=== PATIENT | male | born 1950 | race Caucasian/White ===

== ENCOUNTER 2020-02-09 12:33 | Inpatient (IN) ==
--- OUTSIDE RECORDS SUMMARY | 2020-02-09 12:36 | External Medical Summary | Continuity of Care Document ---
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 Refills: 0 Simvastatin TABS , M.D. Refills: 0 Aspirin 81 MG TABS , M.D. Refills: 0 Cephalexin 500 MG Oral Tablet; TAKE 1 TABLET 3 TIMES D AILY. CHAPARRITA Pisano Start: 28-Aug-2012 Quantity: 30 Refills: 0 Procedures History of CABG Status: Completed History of Knee Replacement Status: Comp leted Immunizations Influenza On: Jun-2012 Td On: 04-Aug-2012 Family History Father Family history of Reported Family History Of Heart Disease S tatus: Active Social History - Smoking Status Tobacco smoking consumption unknown Plan of Treatment Planned Observations Planned Goals not documented Results No Known Results Results not documented
--- OUTSIDE RECORDS SUMMARY | 2020-02-09 12:37 | External Medical Summary | Continuity of Care Document ---
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
[2020-02-09] MEDS ORDERED: ASPIRIN CHEW 324 MG PO STA (13:08)
--- NOTE | 2020-02-09 13:25 | Emergency Department Note ---
Impression & Plan NSTEMI (non-ST elevated myocardial infarction), Chest pain, History of coronary artery bypass graft, CAD (coronary artery disease), Unstable angina pectoris ED Provider Note NAME: MORIS HOLT AGE: 69 SEX: M : 1950 ARRIVES VIA: Walk-In INFORMANT: Patient ED PROVIDER(S): Raghu Nguyen DO CHIEF COMPLAINT: Chest pain HPI: Patient is a 69-year-old male with a past medical history of a CABG performed in 1983 that presents the ER for chest pain which is been present off and on since yesterday. He notes that yesterday some around 2 PM it started and became very severe around 3 PM. It dissipated after about an hour. He notes he had no shortness of breath. He did have some tingling in bilateral arms. No jaw pain. No shortness of breath. He did have diaphoresis with it as well. No other exacerbating or remitting factors with the exception that he took Motrin and had improvement of his symptoms. Has been off and on today but he has not had any pain since he started driving here. He currently denies any chest pain, shortness of breath, nausea vomiting diarrhea. Pain was located just right of sternum and wrapped around the right side of his chest. He described as a dull ache/heaviness. Currently his pain is a 0 out of 10. ROS: See above HPI for pertinent positives & negatives. A total of 10 systems reviewed and were otherwise negative. PAST MEDICAL HISTORY:CAD PAST SURGICAL HISTORY:CABG FAMILY HISTORY:See Below SOCIAL HISTORY:See Below HOME MEDICATIONS:See Below ALLERGIES:See Below VITALS:See Below PHYSICAL EXAMINATION: GENERAL: Sitting up in bed, alert, well appearing, well nourished, no distress, non-toxic EYE EXAM: normal conjunctiva. OROPHARYNX: no exudate, no erythema, lips, buccal mucosa, and tongue normal and mucous membranes are moist NECK: supple, no nuchal rigidity, no adenopathy, non-tender CHEST: Old midline incision. LUNGS: Clear to auscultation. Normal chest wall mechanics HEART: no murmurs, S1 normal and S2 normal ABDOMEN: abdomen soft, non-tender, normo-active bowel sounds, no masses, no rebound or guarding. BACK: Back is symmetrical on inspection and there is no deformity, no midline tenderness, no CVA tenderness. SKIN: no rashes and no bruising UPPER EXTREMITIES: upper extremities are grossly normal. LOWER EXTREMITIES: No pitting edema. Calves are equal bilateral NEURO EXAM: Normal sensorium, cranial nerves II-XII grossly intact, normal speech, no gross weakness of arms, no gross weakness of legs. MEDICAL DECISION MAKING: Patient is a 69-year-old male with a past medical history of CAD and bypass back in 1983 who presents the ER for chest pain which is been intermittent since yesterday. He is currently pain-free. He had chest pain which was extremely severe yesterday and became diaphoretic and was located on the right side of his chest wrapping around and went to his bilateral arms. IV was established blood work was obtained. Labs show no significant leukocytosis or anemia. BMP was unremarkable. INR was unremarkable. AST slightly elevated to 20. Troponin was elevated at 28.8. Lipase unremarkable. Chest x-ray with some congestive mendoza ges. EKG was not significantly changed from previous. Upon the result of the troponin of 28 I contacted cardiology. They recommended discussing with interventional cardiology he was agreeable to taking him to the [facility] although he was pain-free at this time because he has had stuttering chest pain over the past 2 days. He was given aspirin upon arrival and I placed him on a heparin drip and bolus after the result of the troponin following conversation with a gentleman who declined any previous head bleeds, coughing up blood, vomiting blood, urinating blood or dark tarry stools or bright red blood per rectum. was updated at bedside as well. He was taken to the [facility] for further intervention. I discussed with the hospitalist as well for admission. Again he remained chest pain free throughout his whole stay in the ER. Triage Nursing notes reviewed. Prior medical records reviewed Vital Signs: reviewed and remarkable for hypertension Differential diagnosis: Differential diagnoses includes but is not limited to acute coronary syndrome, myocardial infarction, pericarditis, pulmonary embolus, aortic dissection, pneumonia, pneumothorax, musculoskeletal, shingles, esophageal. ER treatment provided: See below Diagnostics interpreted by me: ECG: Sinus rhythm rate 89 Normal axis No PVCs Normal QTC Questionable T wave inversion in the inferior leads No significant change from previous 2007 EKG #2 Sinus rhythm rate 85 Normal axis No PVCs Normal QTC Nonspecific ST wave changes in the inferior leads with a poor baseline Cardiac Monitoring: An order was placed for continuous cardiac monitoring. The monitor shows a rate of 93 with sinus rhythm. Laboratory studies: As stated above and show below. Imaging studies: Portable AP upright 1 view of the chest shows no focal infiltrate and mild congestive changes Consultation(s): Discussed with Dr. Adamson around 1:50 PM. He will evaluate the patient at bedside and agrees with discussing with Dr. Banks. Discussed with Dr. Banks from interventional cardiology at 2 PM. Patient will go to the [facility] later today. ED COURSE: Procedures: none Critical Care: I have personally spent 45 minutes of critical care time in the direct management of this patient. This includes bedside care, interpretation of diagnostic studies, and testing, discussion with consultants, patient, and fa concha members, and other required patient management activities. This 45 minutes is in excess of all separately billable procedures. Past Med/Surg History Medical History (Updated 02/09/20 @ 16:47 by Raghu Nguyen DO) ASCVD (arteriosclerotic cardiovascular disease) CAD (coronary artery disease) (Acute) History of nephrolithotomy with removal of calculi Hyperlipidemia Prediabetes Statin intolerance Surgical History (Updated 02/09/20 @ 16:47 by Raghu Nguyen DO) History of coronary artery bypass graft (Acute) History of tonsillectomy S/P laser trabeculoplasty of eye Status post cystoscopy with ureteral stent placement Family History (Updated 02/09/20 @ 16:35 by Laurita Knight PA-C) Mother Ovarian cancer Father Heart disease Social History (Updated 02/09/20 @ 16:35 by Laurita Knight PA-C) Feels Safe at Home: Yes Smoking Status: Never smoker Hx Alcohol Use: No Hx Substance Use: No Allergies Allergies Allergy/AdvReac Type Severity Reaction Status Date / Time codeine Allergy Severe Tongue Verified 02/09/20 14:01 swells, has taken Vicodin w/o reaction Home Meds Home Medications Medication Instructions Recorded Confirmed aspirin [Aspirin Low Dose] 81 mg PO DAILY 02/09/20 02/09/20 ezetimibe 10 mg PO QAM 02/09/20 02/09/20 ibuprofen 200 mg PO Q6H PRN 02/09/20 02/09/20 lisinopril 2.5 mg PO QAM 02/09/20 02/09/20 multivitamin 1 tab PO DAILY 02/09/20 02/09/20 nitroglycerin 0.4 mg SUBLINGUAL PRN 02/09/20 Results & Data (ED) Vital Signs Vital Signs - 24 hr 02/09/20 12:40 02/09/20 13:11 02/09/20 13:21 Temperature 37.0 C Temperature Source Oral Pulse Rate 93 H 91 H Pulse Rate [Apical] Pulse Rate from SpO2 Sensor 92 H Pulse Rhythm [Apical] Pulse Strength [Apical] Respiratory Rate 16 18 Respiratory Effort / Characteristics Respiratory Depth Respiratory Pattern Blood Pressure 186/102 H 147/78 H Blood Pressure [Right Arm] Blood Pressure Mean 130 82 Blood Pressure Mean [Right Arm] Blood Pressure Position [Right Arm] Pulse Oximetry 96 96 95 Oxygen Delivery Method Room Air Room Air Room Air Sepsis Recent Fever Within 48 Hours No Sepsis New/Unexplained Change in Mental Status No Sepsis Action Taken by Nursing No Action Required 02/09/20 13:59 02/09/20 14:00 02/09/20 14:15 Temperature Temperature Source Pulse Rate 92 H 84 79 Pulse Rate [Apical] Pulse Rate from SpO2 Sensor 93 H 84 80 Pulse Rhythm [Apical] Pulse Strength [Apical] Respiratory Rate 16 19 24 Respiratory Effort / Characteristics Respiratory Depth Respiratory Pattern Blood Pressure 155/104 H 161/87 H 159/85 H Blood Pressure [Right Arm] Blood Pressure Mean 130 127 90 Blood Pressure Mean [Right Arm] Blood Pressure Position [Right Arm] Pulse Oximetry 96 98 97 Oxygen Delivery Method Room Air Room Air Room Air Sepsis Recent Fever Within 48 Hours Sepsis New/Unexplained Change in Mental Status Sepsis Action Taken by Nursing 02/09/20 14:30 02/09/20 15:55 02/09/20 16:10 Temperature Temperature Source Pulse Rate 88 Pulse Rate [Apical] 85 86 Pulse Rate from SpO2 Sensor Pulse Rhythm [Apical] Regular Regular Pulse Strength [Apical] Normal Normal Respiratory Rate 15 20 20 Respiratory Effort / Characteristics Non-Labored Non-Labored Respiratory Depth Normal Normal Respiratory Pattern Regular Regular Blood Pressure 163/111 H Blood Pressure [Right Arm] 144/81 H 142/80 H Blood Pressure Mean 119 Blood Pressure Mean [Right Arm] 102 100 Blood Pressure Position [Right Arm] Lying Lying Pulse Oximetry 95 95 95 Oxygen Delivery Method Room Air Room Air Sepsis Recent Fever Within 48 Hours Sepsis New/Unexplained Change in Mental Status Sepsis Action Taken by Nursing 02/09/20 16:25 Temperature Temperature Source Pulse Rate Pulse Rate [Apical] 86 Pulse Rate from SpO2 Sensor Pulse Rhythm [Apical] Regular Pulse Strength [Apical] Normal Respiratory Rate 20 Respiratory Effort / Characteristics Non-Labored Respiratory Depth Normal Respiratory Pattern Regular Blood Pressure Blood Pressure [Right Arm] 103/55 L Blood Pressure Mean Blood Pressure Mean [Right Arm] 71 Blood Pressure Position [Right Arm] Lying Pulse Oximetry 95 Oxygen Delivery Method Room Air Sepsis Recent Fever Within 48 Hours Sepsis New/Unexplained Change in Mental Status Sepsis Action Taken by Nursing Laboratory Data Result diagrams: 02/09/20 12:55 02/09/20 12:55 Lab Results 02/09/20 02/09/20 02/09/20 Range/Units 12:55 12: 12:55 WBC 9.99 (4.8-10.8) K/uL RBC 4.99 (4.7-6.1) M/uL Hgb 16.6 (14.0-18.0) g/dL Hct 47.6 (42-52) % MCV 95.4 (80-100) fL MCH 33.3 (25-34) pg MCHC 34.9 (32-36) g/dL RDW Std Deviation 47.4 H (36.4-46.3) fL RDW Coeff of Brittney 13.6 (11.5-14.5) % Plt Count 218 (130-400) K/uL MPV 9.3 (7.4-10.4) fL Immature Gran % (Auto) 0.1 % Neut % (Auto) 69.9 % Lymph % (Auto) 20.7 % [place] % (Auto) 8.2 % Eos % (Auto) 1.0 % Baso % (Auto) 0.1 % Immature Gran # (Auto) 0.01 (0.00-0.02) K/uL Neut # (Auto) 6.98 H (1.4-6.5) K/uL Lymph # (Auto) 2.07 (1.2-3.4) K/uL [place] # (Auto) 0.82 H (0.11-0.59) K/uL Eos # (Auto) 0.10 (0-0.5) K/uL Baso # (Auto) 0.01 (0-0.2) K/uL PT 10.7 (9.0-12.0) Seconds INR 1.0 (0.9-1.1) APTT 28.5 (21.0-31.0) Seconds PTT Ratio 1.0 Sodium 138 (136-145) mmol/L Potassium 3.8 (3.5-5.1) mmol/L Chloride 105 (98-107) mmol/L Carbon Dioxide 25 (21-32) mmol/L Anion Gap 8.0 (3-11) BUN 12 (7-18) mg/dl Creatinine 0.84 (0.6-1.4) mg/dl Est Cr Clr Drug Dosing 103.3 ml/min Est GFR ( Amer) 102.1 Est GFR (Non-Af Amer) 88.1 BUN/Creatinine Ratio 14.6 (10-20) Glucose 105 H (70-99) mg/dl Calcium 9.3 (8.5-10.1) mg/dl Total Bilirubin 0.6 (0.2-1) mg/dl AST 220 H (15-37) U/L ALT 51 (12-78) U/L Alkaline Phosphatase 89 (45-117) U/L Troponin I 28.800 H* (0-0.045) ng/ml Total Protein 7.9 (6.4-8.2) gm/dl Albumin 4.0 (3.4-5.0) gm/dl Globulin 3.9 (2.5-4.0) gm/dl Albumin/Globulin Ratio 1.0 (0.9-2) Lipase 124 (73-393) U/L Administered Medications Heparin Sodium/Dextrose (Heparin Sodium/Dextrose) 25,000 units in 500 mls @ 20 mls/hr IV .Q24H [facility]; Protocol Stop: 03/10/20 13:59 Last Admin: 02/09/20 14:13 Dose: 1,000 units/hr, 20 mls/hr Documented by: [id number] Cosigned by: [id number] Discontinued Medications Aspirin (Aspirin) 324 mg PO NOW STA Stop: 02/09/20 13:09 Last Admin: 02/09/20 13:18 Dose: 324 mg Documented by: [id number] Fentanyl Citrate (Fentanyl Citrate) Confirm Administered Dose 100 mcg .ROUTE .STK-MED ONE Stop: 02/09/20 14:42 Last Increment: 02/09/20 15:45 Dose: 50 mcg Documented by: [id number] Heparin Sodium (Porcine) (Heparin Iv Bolus) Confirm Administered Dose 10,000 units .ROUTE .STK-MED ONE Stop: 02/09/20 14:12 Last Admin: 02/09/20 14:13 Dose: 4,000 units Documented by: [id number] Cosigned by: [id number] Heparin Sodium (Porcine) (Heparin Iv Bolus ([facility] Use Only)) Confirm Administered Dose 10,000 units .ROUTE .STK-MED ONE Stop: 02/09/20 14:41 Last Admin: 02/09/20 15:45 Dose: Not Given Documented by: [id number] Heparin Sodium/Dextrose () 1 ea IV NOW STA; Protocol Stop: 02/09/20 13:52 Last Admin: 02/09/20 14:16 Dose: 1 ea Documented by: [id number] Heparin Sodium/Sodium Chloride (Heparin/Nss 1000 Unit/500ml Flush Bag) Confirm Administered Dose 3,000 units IV .STK-MED ONE Stop: 02/09/20 14:42 Last Admin: 02/09/20 15:46 Dose: 3,000 units Documented by: [id number] Metoprolol Tartrate (Lopressor) 2.5 mg IV NOW STA Stop: 02/09/20 14:12 Last Admin: 02/09/20 14:17 Dose: 2.5 mg Documented by: [id number] Midazolam HCl (Versed) Confirm Administered Dose 2 mg .ROUTE .STK-MED ONE Stop: 02/09/20 14:42 Last Increment: 02/09/20 15:46 Dose: 1 mg Documented by: [id number] Nicardipine HCl (Cardene) Confirm Administered Dose 25 mg .ROUTE .STK-MED ONE Stop: 02/09/20 14:42 Last Admin: 02/09/20 15:45 Dose: 25 mg Documented by: [id number] Nitroglycerin/Dextrose (Nitroglycerin/D5w 100 Mcg/Ml 20ml Syringe) Confirm Administered Dose 2,000 mcg .ROUTE .STK-MED ONE Stop: 02/09/20 14:42 Last Admin: 02/09/20 15:46 Dose: 2,000 mcg Documented by: [id number] Discharge Plan Visit Data *Final* Discharge Date/Time: 02/09/20 14:34 Chief Complaint: Chest Pain Stated Complaint: CHEST PAIN, GOING TO BACK/SHOULDER BLAD ED Provider: Raghu Nguyen Discharge Problem: NSTEMI (non-ST elevated myocardial infarction), Chest pain, History of coronary artery bypass graft, CAD (coronary artery disease), Unstable angina pectoris Patient Disposition: Admitted As Inpatient Discharge Instructions Interventions: ED Discharge Assessment Last Done: 02/09/20 14:34 Discharge Problem: Chest pain Qualifiers: Chest pain type: unspecified Qualified Code(s): R07.9 - Chest pain, unspecified CAD (coronary artery disease) Qualifiers: Coronary Disease-Associated Artery/Lesion type: unspecified vessel or lesion type [place] vs. transplanted heart: unspecified whether marshall or transplanted heart Associated angina: with unspecified angina Qualified Code(s): I25.119 - Atherosclerotic heart disease of marsh[place] coronary artery with unspecified angina pectoris
[2020-02-09 13:27] LABS: Basophils # (auto) 0.01 K/uL (0-0.2); Basophils % (auto) 0.1 %; Hematocrit (blood only) 47.6 % (42-52); Hemoglobin 16.6 g/dL (14.0-18.0); Immature Granulocytes # (auto) 0.01 K/uL (0.00-0.02); Immature Granulocytes % (auto) 0.1 %; Lymphocytes # (auto) 2.07 K/uL (1.2-3.4); Lymphocytes % (auto) 20.7 %; Mean Corpuscular Hemoglobin 33.3 pg (25-34); Mean Corpuscular Hgb Conc 34.9 g/dL (32-36); Mean Corpuscular Volume 95.4 fL (80-100); Mean Platelet Volume 9.3 fL (7.4-10.4); Monocytes # (auto) 0.82 K/uL (0.11-0.59); Monocytes % (auto) 8.2 %; Neutrophils # (auto) 6.98 K/uL (1.4-6.5); Neutrophils % (auto) 69.9 %; Platelet Count 218 K/uL (130-400); RDW Coefficient of Variation 13.6 % (11.5-14.5); RDW Standard Deviation 47.4 fL (36.4-46.3); Red Blood Count 4.99 M/uL (4.7-6.1); White Blood Count 9.99 K/uL (4.8-10.8)
[2020-02-09 13:35] LABS: BUN Creatinine Ratio 14.6 (10-20); Calcium 9.3 mg/dl (8.5-10.1); Creatinine Clr Calc Pharmacy 103.3 ml/min; Est GFR (African American) 102.1; Est GFR (Non-African American) 88.1; Potassium 3.8 mmol/L (3.5-5.1)
[2020-02-09 13:40] LABS: Partial Thromboplastin Time 28.5 Seconds (21.0-31.0); Prothrombin Time 10.7 Seconds (9.0-12.0)
[2020-02-09 13:44] LABS: Bilirubin,Total 0.6 mg/dl (0.2-1); Globulin 3.9 gm/dl (2.5-4.0); Total Protein 7.9 gm/dl (6.4-8.2); Troponin I 28.8 ng/ml (0-0.045)
[2020-02-09] MEDS ORDERED: Heparin IV Low Dose WITH Bolus IV STA (13:51)
--- NOTE | 2020-02-09 13:52 | XRay Report ---
SINGLE VIEW CHEST CLINICAL HISTORY: Atypical chest pain. FINDINGS: An AP, portable, upright chest radiograph is compared to study dated 10/16/2011. The examina tion is degraded by portable technique and patient rotation. The patient is status post midline murray otomy. The heart is enlarged noting atherosclerotic calcification of the thoracic aorta. There is pul monary vascular congestion. Atelectasis is noted at the lung bases. There is no airspace consolidatio n or large pleural effusion. No pneumothorax is seen. The skeletal structures are osteopenic. The bon y thorax is grossly intact. IMPRESSION: Cardiomegaly with evidence of congestive failure. ACT 112: Negative or not required by law. Electronically signed by: Ernst Warren M.D. 02/09/2020 1:51 PM
[2020-02-09] MEDS ORDERED: HEPARIN SOD (PORCINE) 1000 UNIT/ML 10 ML VIAL ONE (14:11)
[2020-02-09] MEDS ORDERED: METOPROLOL TARTRATE 1 MG/ML VIAL IV STA (14:11)
[2020-02-09] MEDS: HEPARIN SODIUM/DEXTROSE 25,000 UNITS/500 ML BAG IV SCH ×2 (14:13→17:00)
[2020-02-09] MEDS ORDERED: HEPARIN (PORCINE) 1000 UNIT/ML 10 ML (CATH LAB USE ONLY) ONE (14:40)
[2020-02-09] MEDS ORDERED: MIDAZOLAM HCL 1 MG/ML 2ML VIAL ONE (14:41)
[2020-02-09] MEDS ORDERED: fentaNYL citrate 100 MCG/2 ML VIAL ONE (14:41)
[2020-02-09] MEDS ORDERED: NITROGLYCERIN/D5W 100MCG/ML 20ML SYR ONE (14:41)
[2020-02-09] MEDS ORDERED: NiCARDipine HCL INJ 2.5 MG/ML 10 ML AMP ONE (14:41)
--- NOTE | 2020-02-09 15:52 | Post Anesthesia Assessment ---
Date of Service February 09, 2020 Post Sedation Assessment Vital Signs Temp Pulse Resp BP Pulse Ox 02/09/20 14:30 88 15 163/111 H 95 02/09/20 14:15 79 24 159/85 H 97 02/09/20 14:00 84 19 161/87 H 98 02/09/20 13:59 92 H 16 155/104 H 96 02/09/20 13:21 91 H 18 147/78 H 95 02/09/20 13:11 96 02/09/20 12:40 98.6 F 93 H 16 186/102 H 96 Recovery Score Activity: Moves 4 extremities Respiration: Deep Breath/Cough Circulation: +/-20% PreAnes Value Consciousness: Fully Awake Oxygen Saturation: O2 needed for >90% Discharge Sedation Level of Care: Fast Track Phase II Post Sedation Plan On clinical assessment, the patient appears to have tolerated the sedation without complications. Patient is recovering as anticipated. Patient will continue to be monitored by nursing and may be discharged when sedation discharge criteria are met per below protocol. Upon Completions of procedure up to 15 minutes continue every 5 minute vital signs and the P.A.R. score; then discharge to a Phase I or Fast Track to Phase II per the following guidelines: * Discharge Patient to appropriate Phase II area if PAR is 8 or greater or return to pre- procedure baseline. The post - procedure orders will be as directed. * If PAR score is less than 8 or not return to pre-procedure baseline then patient will follow Phase I monitoring till PAR is reached for Phase II. The Phase I may be done in procedure room or may call to secure a Phase I area. * If naloxone or flumazenil are used for reversal, hold in Phase I for continued monitoring from when last reversal dose was given for a minimum of 60 minutes or longer pending the nurse and/or physician discretion of patient condition before discharge to Phase II. Please call the Sedation Physician to re-evaluate and complete post-note for discharge to Phase II area. Do NOT discharge from procedure sedation or Phase 1 until post- sedation evaluation note is complete by procedure /sedation MD Sedation Discharge Instructions to be given to the patient at discharge to home.
--- NOTE | 2020-02-09 16:03 | Cardiac Catheterization ---
[facility] Data: Client Reporting Associate Cardiac Status Clinical evaluation leading to the procedure CAD Presenation: Non STEMI Anginal Classification: CCS IV Heart Failure: No Cardiogenic Shock within 24 Hours: No Cardiac Arrest within 24 Hours: No Imaging Studies Past 6 Months: No Stress Studies Past 6 Months: No Diagnostic Physicians Name: Ernesto Banks MD Status: Elective Closure Device Percutaneous Entry Location: Radial Closure Device: Radial Band Recommendations: Medical Therapy and/or Counseling Intraprocedure Events Significant Disection: No Perforation: No Cardiac Cath Procedure Full Procedure Date February 09, 2020 Pre-Procedure Diagnosis Pre-Procedure Diagnosis: Non STEMI AUC Score AUC Score: 8 Post-Procedure Diagnosis Post-Procedure Diagnosis: Severe CAD and Normal Intracardiac Pressures Procedure(s) Performed Procedure(s) Performed: Coronary Angiography, Left Heart Cath and Bypass Graft Angiography Licensed Chemical Spray Technician Ernesto Banks MD Rnp(s) Luca Estimated Blood Loss Estimated Blood Loss: 15 Medication(s) Medication(s): Fentanyl, Lidocaine 1%, Nicardipine and Nitroglycerin Summary of Findings Indication: High risk NSTEMI, prior three-vessel CABG in 2007 Access: 6 Fr slender left radial art Catheters: JL4, JR4 Findings: LM -calcified, diffuse 30% disease LAD -calcified, 100% ostial occlusion Circumflex -medium caliber vessel, 30% mid segment disease, OM1 occluded, small OM 2 with 80-90% proximal stenosis RCA -dominant, medium caliber, moderately calcified, 50% earlymid, 60 to 70% eccentric mid stenosis, diffuse moderate mid right PDA disease SVG to first [id number]% proximal stenosis, small first diagonal without significant disease SVG to OMacute 100% mid vessel occlusion with heavy thrombus burden throughout vessel ROY to LADwidely patent, distal LAD without significant disease and wraps around apex, retrofills into mid LAD and second diagonal LVEDP -13 Arterial Closure: TR band Summary: 1. Severe multivessel coronary artery disease -Chronic 100% ostial LAD occlusion Chronic 100% ostial OM1 occlusion, 80-90% proximal small OM2 60 to 70% eccentric mid RCA, diffuse moderate disease in small right PDA 2. Acute 100% mid SVG to OM occlusion with heavy thrombus burden 3. 80% proximal SVG to first diagonal 4. Patent ROY to LAD 5. Normal intracardiac filling pressure Recommendations: Patient more than 24 hours out from initial symptoms and is now chest pain-free. Recommend medical management of culprit SVG-OM occlusion. First diagonal is a small vessel and will defer intervention to upstream vein graft at this time. If were to have limiting anginal symptoms in the future SVG to diagonal appears amenable to PCI For now continue heparin infusion DAPT per primary sql developer Continued ASCVD risk factor modification Hemodynamics Rest Ao:: 120/75/107 Final Ao: 136/81/106 LV: 123/13 Recommendations Recommendations: Medical Therapy and/or Counseling Specimens Specimens: None Radiation Exposure (mGy) 1842 Contrast (mls) 45 Fluids (cc crystalloids) Fluids (cc crystalloids): 91 Drains Drains: none Anesthesia moderate Procedural Complication(s) None Disposition PCU I attest to the content of the Intraoperative Record and any orders documented therein. Any exceptions are noted below. [facility] Card Cath Procedure Codes Cardiac Catheterization Procedure 1: Cardiovascular Cath Procedures: 81689 Coronaries and Grafts/IM (venous & atrial) Moderate Sedation Procedure 1: Sedation/Anesthesia: 77535 Mod Sedation by the same physician;Init15 Min Child Age 5 & Up Procedure 2: Sedation/Anesthesia: 91841 Mod Sedation by the same physician; Ea [id number] Minutes PG Care Time/CCT Total # of Minutes Spent Total Time Spent with Patient: Total time spent is greater than 50% in coordination of care (as documented) at patient's floor/unit and/or counseling patient:
[2020-02-09] MEDS ORDERED: ONDANSETRON INJ 2 MG/ML 2 ML VIAL IV PRN (16:13)
[2020-02-09] MEDS ORDERED: SODIUM CHLORIDE 0.9% 1000ML 1,000 ML IV SCH (16:15)
--- NOTE | 2020-02-09 16:17 | Cardiology Consultation ---
Date of Consultation February 09, 2020 Assessment & Plan (1) NSTEMI (non-ST elevated myocardial infarction): Currently the patient is discomfort free without significant EKG changes. Given his significant troponin elevation along with the duration of discomfort he will be taken to the cardiac Practice Clinician today. Further recommendations to follow Cardiac catheterization performed which revealed: 1. Severe multivessel coronary artery disease -Chronic 100% ostial LAD occlusion Chronic 100% ostial OM1 occlusion, 80-90% proximal small OM2 60 to 70% eccentric mid RCA, diffuse moderate disease in small right PDA 2. Acute 100% mid SVG to OM occlusion with heavy thrombus burden 3. 80% proximal SVG to first diagonal 4. Patent ROY to LAD 5. Normal intracardiac filling pressure We will treat medically. We will start dual antiplatelet therapy with Plavix 75 mg p.o. daily first dose now and continue baby aspirin. We will also start metoprolol succinate 25 mg p.o. daily now. Echocardiogram in the a.m. Nitrates may be used for recurrent chest discomfort or morphine. Further medical therapy will be tailored based on the patient's current ejection fraction. (2) ASCVD (arteriosclerotic cardiovascular disease): (3) Chest pain: (4) Statin intolerance: Given his history of diffuse complex coronary artery disease and statin intolerance will require PCSK9 inhibitor therapy to be initiated as an outpatient. Continue Zetia History of Present Illness Reason for Consultation: NSTEMI Requesting Physician: Dr. Nguyen Attending Physician: Dr. Sesay History of Present Illness It was my pleasure to see Mr. Duarte in consultation today February 09, 2020. He is a very pleasant 69-year-old gentleman who normally follows with Dr. Pompa of our cardiology practice. He presented to [facility] on 02/09/2020 with complaints of chest discomfort. He states the discomfort started on the 11 right after lunch. He described it as a chest pressure that was associated with some numbness and tingling down the left arm. He states the discomfort waxed and waned throughout the evening and overnight. At approximately 4 AM it became rather significant and he took 1 sublingual nitroglycerin. He did have transient relief of his discomfort after the nitroglycerin. Finally, on the his daughter encouraged him to seek attention at the emergency room and upon arrival he was found to have a troponin of 29. He was asymptomatic after receiving nitroglycerin in the ER and his EKG was unremarkable. The patient was seen and examined in the emergency room with his at the bedside and was decided to take him for cardiac catheterization which both he and his agreed with. Past medical history: 1.Atherosclerotic coronary disease, status post coronary bypass grafting after [id number] elevation myocardial infarction in 2007, receiving a ROY graft to the LAD, a saphenous vein graft to the diagonal, a saphenous vein graft to an obtuse marginal. 2.Hyperlipidemia. 3.Moderate obesity, 4. Statin intolerance Allergies Allergy/AdvReac Type Severity Reaction Status Date / Time codeine Allergy Severe Tongue Verified 02/09/20 14:01 evie, has taken Vicodin w/o reaction Home Medications Home Medications Medication Instructions Recorded Confirmed Type aspirin [Aspirin Low Dose] 81 mg PO DAILY 02/09/20 02/09/20 History ezetimibe 10 mg PO QAM 02/09/20 02/09/20 History ibuprofen 200 mg PO Q6H PRN 02/09/20 02/09/20 History lisinopril 2.5 mg PO QAM 02/09/20 02/09/20 History multivitamin 1 tab PO DAILY 02/09/20 02/09/20 History nitroglycerin 0.4 mg SUBLINGUAL PRN 02/09/20 History Patient History Medical History ASCVD (arteriosclerotic cardiovascular disease) CAD (coronary artery disease) History of nephrolithotomy with removal of calculi Hyperlipidemia Prediabetes Statin intolerance Surgical History History of coronary artery bypass graft History of tonsillectomy S/P laser trabeculoplasty of eye Status post cystoscopy with ureteral stent placement Family History Mother Ovarian cancer Father Heart disease Social History Feels Safe at Home: Yes Smoking Status: Never smoker Hx Alcohol Use: No Hx Substance Use: No Review of Systems Review of Systems: All systems reviewed & are unremarkable except as noted in HPI & below Physical Exam Physical Exam: General: Awake, alert and oriented x 3. No acute distress. HEENT: Normocephalic, atraumatic. Pupils equal, round and reactive to light and accommodation. Extraocular muscles are intact. Anicteric sclera. Moist mucous membranes. Neck: No JVD. No bruit. Cardiovascular: Regular. Positive S-4. Normal S-1 and S-2. No S-3. No murmurs or rubs. Pulmonary: Clear to auscultation B/L. No rales, rhonchi or wheezing Abdomen: Bowel sounds x 4, soft. No rebound, guarding or tenderness. No organomegaly. Extremities: No clubbing, cyanosis or edema. +2 pedal pulses bilaterally. Skin: Warm and dry. Results & Data ([facility]) Vital Signs (Past 12 Hours) Vital Signs Temp Pulse Resp BP Pulse Ox 02/09/20 14:30 88 15 163/111 H 95 02/09/20 14:15 79 24 159/85 H 97 02/09/20 14:00 84 19 161/87 H 98 02/09/20 13:59 92 H 16 155/104 H 96 02/09/20 13:21 91 H 18 147/78 H 95 02/09/20 13:11 96 02/09/20 12:40 37.0 C 93 H 16 186/102 H 96 Laboratory Results Laboratory Results - last 24 hr 02/09/20 02/09/20 02/09/20 12:55 12:55 12:55 WBC 9.99 RBC 4.99 Hgb 16.6 Hct 47.6 MCV 95.4 MCH 33.3 MCHC 34.9 RDW Std Deviation 47.4 H RDW Coeff of Brittney 13.6 Plt Count 218 MPV 9.3 Immature Gran % (Auto) 0.1 Neut % (Auto) 69.9 Lymph % (Auto) 20.7 [place] % (Auto) 8.2 Eos % (Auto) 1.0 Baso % (Auto) 0.1 Immature Gran # (Auto) 0.01 Neut # (Auto) 6.98 H Lymph # (Auto) 2.07 [place] # (Auto) 0.82 H Eos # (Auto) 0.10 Baso # (Auto) 0.01 PT 10.7 INR 1.0 APTT 28.5 PTT Ratio 1.0 Sodium 138 Potassium 3.8 Chloride 105 Carbon Dioxide 25 Anion Gap 8.0 BUN 12 Creatinine 0.84 Est Cr Clr Drug Dosing 103.3 Est GFR ( Amer) 102.1 Est GFR (Non-Af Amer) 88.1 BUN/Creatinine Ratio 14.6 Glucose 105 H Calcium 9.3 Total Bilirubin 0.6 AST 220 H ALT 51 Alkaline Phosphatase 89 Troponin I 28.800 H* Total Protein 7.9 Albumin 4.0 Globulin 3.9 Albumin/Globulin Ratio 1.0 Lipase 124 Medications Administered Current Inpatient Medications Heparin Sodium/Dextrose (Heparin Sodium/Dextrose) 25,000 units in 500 mls @ 20 mls/hr IV .Q24H [facility]; Protocol Stop: 03/10/20 13:59 Last Admin: 02/09/20 14:13 Dose: 1,000 units/hr, 20 mls/hr Documented by: Sodium Chloride (Nss 1000ml) 1,000 mls @ 100 mls/hr IV .Q10H [facility] Stop: 02/09/20 23:44 Metoprolol Succinate (Toprol Xl) 25 mg PO QAM [facility] Stop: 03/10/20 16:29 Ondansetron HCl (Zofran) 4 mg IV Q6H PRN PRN Reason: Nausea And Vomiting Stop: 03/10/20 16:12
[2020-02-09] MEDS ORDERED: METOPROLOL SUCC 25MG EXT REL TAB PO STA (16:27)
[2020-02-09] MEDS ORDERED: METOPROLOL SUCC 25MG EXT REL TAB PO SCH (16:30)
--- NOTE | 2020-02-09 16:41 | History & Physical Report ---
Date of Service February 09, 2020 Assessment & Plan (1) NSTEMI (non-ST elevated myocardial infarction): (2) Chest pain: (3) ASCVD (arteriosclerotic cardiovascular disease): (4) History of coronary artery bypass graft: Patient with chest pain starting yesterday and history of CABG. Troponin elevated upon presentation. Taken for cardiac cath due to NSTEMI. Severe CAD noted. Noted to have acute 100% mid SVG to OM occlusion with heavy thrombus burden. Cardiology following. Recommended medical management. Continue ASA 81 mg DAILY. Start Plavix. Start Metoprolol 25 mg daily. Repeat troponin Q6h x 2 more Repeat EKG in AM Continue Nitro PRN chest pain. Tylenol PRN pain otherwise. Allergic to codeine- will defer Morphine for now. Plan for Echo in the AM. Repeat CBC, CMP in AM (5) Hyperlipidemia: (6) Statin intolerance: Lipids last checked in November. Follows with Cardio outpatient. Previously statin intolerant. Continue Zetia. Per Cardiology, consider addition of PCSK9 inhibitor as an outpatient. (7) DVT prophylaxis: Currently on heparin History of Present Illness Chief Complaint: NSTEMI Primary Care Provider: Khanh Noel MD Patient is a 69 yo male with history of CABG, dyslipidemia, & prediabetes who presented to the ED with chest pain x 2 days. He had pain starting yesterday along with diaphoresis on and off. The pain subsided later in the day, but returned today. He had no pain while in the ED. He has not had any SOB, [place]. He has had some tingling in both of his arms, and the pain is in the right sternal area and radiates around the right side of his chest into his back. He describes this pain as a dull ache. He can tell "something isn't right". Per the patients record, he had CABG performed in 2007 secondary to an NSTEMI at [facility] by Dr. Mckeon. He follows with Dr. Berhane Pompa for his outpatient [employer]. He has a history of dyslipidemia but has been statin intolerant in the past. He was started on Zetia following his last outpatient visit in November. He takes ASS 81 mg a few times per week but not every day. Since presentation, the patient was noted to have BP up to 186/102. Troponin severely elevated at 28.8. Blood counts normal. AST 220, but other LFTs normal. Renal function normal. He was given Heparin drip, metoprolol, and ASA in the ED for concern of NSTEMI. EKG showed nonspecific ST changes with sinus arrhythmia. CXR showed cardiomegaly with evidence of congestive failure. Cardiology was consulted in the ED, and the patient was sent for cardiac catheterization. Cardiac cath showed severe CAD. Cardiology recommended medical management and ASCVD risk factor modification. Cardiology recommended dual-antiplatelet therapy and continued heparin for now. He was also started on metoprolol. Allergies Allergy/AdvReac Type Severity Reaction Status Date / Time codeine Allergy Severe Tongue Verified 02/09/20 14:01 evie, has taken Vicodin w/o reaction Home Medications Home Medications Medication Instructions Recorded Confirmed Type aspirin [Aspirin Low Dose] 81 mg PO DAILY 02/09/20 02/09/20 History ezetimibe 10 mg PO QAM 02/09/20 02/09/20 History ibuprofen 200 mg PO Q6H PRN 02/09/20 02/09/20 History lisinopril 2.5 mg PO QAM 02/09/20 02/09/20 History multivitamin 1 tab PO DAILY 02/09/20 02/09/20 History nitroglycerin 0.4 mg SUBLINGUAL PRN 02/09/20 History Past Med/Surg History Medical History ASCVD (arteriosclerotic cardiovascular disease) CAD (coronary artery disease) (Acute) History of nephrolithotomy with removal of calculi Hyperlipidemia Prediabetes Statin intolerance Surgical History (Updated 02/09/20 @ 17:29 by Laurita Knight PA-C) History of coronary artery bypass graft (Acute) 2007 @ [facility] History of tonsillectomy S/P laser trabeculoplasty of eye Status post cystoscopy with ureteral stent placement Family History Mother Ovarian cancer Father Heart disease Social History Preferred Language: Bolivian 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 Ability: Effective Treasury Director Required: No Beliefs That Will Affect Care: None Current Living Situation: Spouse Other Information That Helps Us Care for You: No Feels Safe at Home: Yes Safety Concerns: Feels Safe At This Time Smoking Status: Never smoker Hx Alcohol Use: No Hx Substance Use: No Review of Systems Review of Systems: All systems reviewed & are unremarkable except as noted in HPI & below Physical Exam Constitutional: WD/WN, vitals as above + obese Eyes: PERRL, conjunctivae normal, anicteric sclerae ENMT: external ear and nose normal, oropharynx normal Neck: trachea midline, no thyromegaly Respiratory: normal respiratory effort, lungs clear to auscultation Cardiovascular: RRR, no murmur, no edema Gastrointestinal (Abdomen): normal bowel sounds, soft, nontender, no hepatosplenomegaly Musculoskeletal: Head/Neck/Chest: normocephalic and head atraumatic Extremities: no cyanosis and no clubbing Skin: no rashes, warm and dry Neurologic: PERRL, EOMI, accommodation nl, no face palsy, no dysarthria Psychiatric: A+Ox3, euthymic affect Results & Data Results & Data ([facility]) Vital Signs (Past 12 Hours) Vital Signs Temp Pulse Pulse Resp BP BP Pulse Ox 02/09/20 16:25 86 20 103/55 L 95 02/09/20 16:10 86 20 142/80 H 95 02/09/20 15:55 85 20 144/81 H 95 02/09/20 14:30 88 15 163/111 H 95 02/09/20 14:15 79 24 159/85 H 97 02/09/20 14:00 84 19 161/87 H 98 02/09/20 13:59 92 H 16 155/104 H 96 02/09/20 13:21 91 H 18 147/78 H 95 02/09/20 13:11 96 02/09/20 12:40 37.0 C 93 H 16 186/102 H 96 Laboratory Results Laboratory Results - last 24 hr 02/09/20 02/09/20 02/09/20 12:55 12:55 12:55 WBC 9.99 RBC 4.99 Hgb 16.6 Hct 47.6 MCV 95.4 MCH 33.3 MCHC 34.9 RDW Std Deviation 47.4 H RDW Coeff of Brittney 13.6 Plt Count 218 MPV 9.3 Immature Gran % (Auto) 0.1 Neut % (Auto) 69.9 Lymph % (Auto) 20.7 [place] % (Auto) 8.2 Eos % (Auto) 1.0 Baso % (Auto) 0.1 Immature Gran # (Auto) 0.01 Neut # (Auto) 6.98 H Lymph # (Auto) 2.07 [place] # (Auto) 0.82 H Eos # (Auto) 0.10 Baso # (Auto) 0.01 PT 10.7 INR 1.0 APTT 28.5 PTT Ratio 1.0 Sodium 138 Potassium 3.8 Chloride 105 Carbon Dioxide 25 Anion Gap 8.0 BUN 12 Creatinine 0.84 Est Cr Clr Drug Dosing 103.3 Est GFR ( Amer) 102.1 Est GFR (Non-Af Amer) 88.1 BUN/Creatinine Ratio 14.6 Glucose 105 H Calcium 9.3 Total Bilirubin 0.6 AST 220 H ALT 51 Alkaline Phosphatase 89 Troponin I 28.800 H* Total Protein 7.9 Albumin 4.0 Globulin 3.9 Albumin/Globulin Ratio 1.0 Lipase 124 Diagnostic Findings CXR: IMPRESSION: Cardiomegaly with evidence of congestive failure. Cardiac Cath: Summary: 1. Severe multivessel coronary artery disease -Chronic 100% ostial LAD occlusion Chronic 100% ostial OM1 occlusion, 80-90% proximal small OM2 60 to 70% eccentric mid RCA, diffuse moderate disease in small right PDA 2. Acute 100% mid SVG to OM occlusion with heavy thrombus burden 3. 80% proximal SVG to first diagonal 4. Patent ROY to LAD 5. Normal intracardiac filling pressure Supervising Physician Co-Signing Physician Notes Patient seen and examined by me, care coordinated with Laurita Knight PA-C. Please refer to her note above for further detail. 69 yo male with history of CAD s/p CABG, dyslipidemia, and prediabetes who presented to the ED with chest pain that started yesterday. Pain was radiating to his back. In ED troponin significantly elevated at 28.8. 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 Noted to have acute 100% mid SVG to OM occlusion with heavy thrombus burden. Currently patient is lying in bed, in no acute distress, denies any significant chest pain. He is breathing comfortably on room air, lungs are clear to auscultation bilaterally, without any wheezing rhonchi or crackles. Heart sounds are regular. Abdomen is soft, nontender, nondistended. Patient is able to move all extremities spontaneously and without difficulty. He is alert and oriented and answering questions appropriately. Skin and extremities are warm and well-perfused. Per cardiology, will cont. to treat medically, pt will be started on Plavix today in addition to his ASA. Will also start metoprolol. Plan to repeat EKG and obtain echocardiogram tomorrow AM. Emily Sesay MD
[2020-02-09] MEDS ORDERED: CLOPIDOGREL BISULFATE 75 MG TAB PO ONE (16:52)
[2020-02-09] MEDS ORDERED: ACETAMINOPHEN 325 MG TAB PO PRN (16:53)
[2020-02-09] MEDS ORDERED: NITROGLYCERIN SL 0.4 MG/TAB TAB SL PRN (17:21)
[2020-02-09 23:28] LABS: Partial Thromboplastin Ratio 1.2; Partial Thromboplastin Time 32.7 Seconds (21.0-31.0)
[2020-02-09] MEDS ORDERED: HEPARIN IV BOLUS 4,500 UNITS in SYRINGE 0 ML IV ONE (23:32)
[2020-02-10 01:20] LABS: Hematocrit (blood only) 45.6 % (42-52); Hemoglobin 16.1 g/dL (14.0-18.0); Mean Corpuscular Hemoglobin 33.4 pg (25-34); Mean Corpuscular Hgb Conc 35.3 g/dL (32-36); Mean Corpuscular Volume 94.6 fL (80-100); Mean Platelet Volume 8.9 fL (7.4-10.4); Platelet Count 201 K/uL (130-400); RDW Coefficient of Variation 13.6 % (11.5-14.5); RDW Standard Deviation 46.8 fL (36.4-46.3); Red Blood Count 4.82 M/uL (4.7-6.1); White Blood Count 12.31 K/uL (4.8-10.8)
[2020-02-10 01:38] LABS: Albumin Level 3.5 gm/dl (3.4-5.0); BUN Creatinine Ratio 13.2 (10-20); Calcium 8.5 mg/dl (8.5-10.1); Est GFR (African American) 104.2; Est GFR (Non-African American) 89.9
[2020-02-10 01:48] LABS: Albumin Globulin Ratio 0.9 (0.9-2); Bilirubin,Total 0.8 mg/dl (0.2-1); Globulin 3.8 gm/dl (2.5-4.0); Total Protein 7.3 gm/dl (6.4-8.2); Troponin I 27.5 ng/ml (0-0.045)
--- NOTE | 2020-02-10 05:44 | Electrocardiogram Report ---
Test Reason : Blood Pressure : / mmHG Vent. Rate : 089 BPM Atrial Rate : 089 BPM P-R Int : 172 ms QRS Dur : 108 ms QT Int : 360 ms P-R-T Axes : 051 043 001 degrees QTc Int : 438 ms Normal sinus rhythm with sinus arrhythmia When compared with ECG of 16-AUG-2008 08:56, No significant change was found Confirmed by Rey Mcfarlane ([id number]) on 02/10/2020 5:43:56 AM Referred By: REFERRED SELF Confirmed By:Rey Mcfarlane
[2020-02-10] MEDS ORDERED: MAGNESIUM SULFATE / D5W 1 GM/100 ML BAG IV ONE (05:57)
[2020-02-10] MEDS: METOPROLOL SUCC 25MG EXT REL TAB PO SCH ×2 (06:23→08:15)
[2020-02-10 06:31] LABS: Partial Thromboplastin Ratio 1.7; Partial Thromboplastin Time 47.8 Seconds (21.0-31.0)
[2020-02-10 07:08] VITALS: O2SAT 94
[2020-02-10] MEDS ORDERED: ASPIRIN 81 MG ECTAB PO SCH (09:00)
[2020-02-10] MEDS ORDERED: CLOPIDOGREL BISULFATE 75 MG TAB PO SCH (09:00)
[2020-02-10] MEDS ORDERED: EZETIMIBE 10 MG TABLET PO SCH (09:00)
[2020-02-10 11:22] VITALS: BP 120/74; PULSE 91; TEMP 98.1
--- NOTE | 2020-02-10 13:23 | Hospitalist Progress Note ---
Date of Service February 10, 2020 Assessment & Plan (1) NSTEMI (non-ST elevated myocardial infarction): presented with chest pain /unstable angina NSTEMI troponin elevated 29 Taken for cardiac cath emergently due to NSTEMI. S severe CAD : acute 100% mid SVG to OM occlusion with heavy thrombus burden. Cardiology following. Recommended medical management. dual antiplatelet therapy : ASA 81 mg DAILY./Plavix 75 mg daily . Started on beta nati ToprolXL 25 mg daily dose increased to 50 mg daily -as pt's HR on tele noted to between 90-100's with runs of non sustained vtach in am -pt was completely symptom free cont home medication :ACEI :lisinopril 2.5 mg daily cardiac risk modification (2) Chest pain: presented with unstable angina due to NSTEMI symptom has resolved cardiac cath reveals severe CAD ,medical management cardiac meds as outlined above cont PRN SL nitro home med (3) ASCVD (arteriosclerotic cardiovascular disease): (4) History of coronary artery bypass graft: (5) Hyperlipidemia: given severe CAD , goal LDL < 70 for cardiac risk modification Previously statin intolerant. Continue Zetia. Per Cardiology, consider addition of PCSK9 inhibitor as an outpatient. (6) Statin intolerance: (7) DVT prophylaxis: FULL CODE DISPOSITION : dc home today Admission and Anticipated Discharge Date Admission Date: February 09, 2020 Subjective pt denies of any complain of chest pain or SOB feels fine very eager to be discharged home Review of Systems Review of Systems: All systems reviewed & are unremarkable except as noted in HPI & below Cardiovascular: as per Subjective / HPI; no chest pain, no dyspnea at rest, no dyspnea on exertion, no orthopnea, no palpitations, no lightheadedness and no edema Physical Exam Constitutional: WD/WN, vitals as above Eyes: PERRL, conjunctivae normal, anicteric sclerae ENMT: external ear and nose normal, oropharynx normal Neck: trachea midline, no thyromegaly Respiratory: normal respiratory effort, lungs clear to auscultation Cardiovascular: RRR, no murmur, no edema Gastrointestinal (Abdomen): normal bowel sounds, soft, nontender, no hepatosplenomegaly Musculoskeletal: no cyanosis or clubbing, extremities motor strength 5/5 Skin: no rashes, warm and dry Neurologic: PERRL, EOMI, accommodation nl, no face palsy, no dysarthria Psychiatric: A+Ox3, euthymic affect Results & Data Results & Data ([facility]) Vital Signs (Past 12 Hours) Vital Signs Temp Pulse Pulse Pulse Resp BP Pulse Ox 02/10/20 11:20 36.7 C 91 H 19 120/74 94 02/10/20 10:52 37.0 C 90 90 19 113/71 94 02/10/20 09:23 90 02/10/20 07:07 37.0 C 90 19 113/71 94 02/10/20 04:45 96 H 20 127/76 95 02/10/20 03:22 37.1 C 92 H 18 127/72 94 (1) Chest pain Chest pain type: unspecified Qualified Code(s): R07.9 - Chest pain, unspecified
[2020-02-10] MEDS ORDERED: METOPROLOL SUCC 25MG EXT REL TAB PO STA (13:49)
--- NOTE | 2020-02-10 13:52 | Cardiology Progress Note ---
Date of Service February 10, 2020 Assessment & Plan (1) NSTEMI (non-ST elevated myocardial infarction): Currently the patient is discomfort free without significant EKG changes. Given his significant troponin elevation along with the duration of discomfort he will be taken to the cardiac Manager Metrology today. Further recommendations to follow Cardiac catheterization performed which revealed: 1. Severe multivessel coronary artery disease -Chronic 100% ostial LAD occlusion Chronic 100% ostial OM1 occlusion, 80-90% proximal small OM2 60 to 70% eccentric mid RCA, diffuse moderate disease in small right PDA 2. Acute 100% mid SVG to OM occlusion with heavy thrombus burden 3. 80% proximal SVG to first diagonal 4. Patent ROY to LAD 5. Normal intracardiac filling pressure Echocardiogram today shows overall preserved LV systolic function with hypokinesis of the inferior lateral wall only. We will treat medically. We will start dual antiplatelet therapy with Plavix 75 mg p.o. daily first dose now and continue baby aspirin. Continue beta-nati. Patient states he is intolerant to all statins and he will need to be arranged for PCSK9 inhibitor therapy as an outpatient pending insurance approval. He was instructed that there is a significant stenosis of the vein graft to his diagonal, however, given the acute setting this did not appear to be the culprit lesion and it was not intervened upon. Consideration should be given to stress testing as an outpatient in the near future to determine whether or not intervention would be appropriate. Signs and symptoms of recurrent ischemia were discussed at great lengths. He was instructed on the use of sublingual nitroglycerin and the need to seek immediate medical attention for any significant symptoms. My office will call to arrange follow-up as an outpatient. (2) ASCVD (arteriosclerotic cardiovascular disease): (3) Chest pain: (4) Statin intolerance: Given his history of diffuse complex coronary artery disease and statin intolerance will require PCSK9 inhibitor therapy to be initiated as an outpatient. Continue Zetia (5) NSVT (nonsustained ventricular tachycardia): The patient was counseled that this is a very concerning finding. He was counseled that this could represent a possibility of sustained arrhythmia that may result in . The patient adamantly states that he is being discharged today and refuses to remain in the hospital despite my recommendations for further medical therapy to suppress the ventricular tachycardia. Again, he was counseled and educated at great length as to the possibility of further arrhythmia and possibly fatal arrhythmia. Again the patient refuses. We will increase metoprolol to 50 mg daily. He was told in no uncertain terms there is my professional medical opinion that he is risking should he not remain hospitalized for further treatment. The patient states he understands, he is accepting of that risk but further states "I would rather take my chances" Subjective Patient seen and examined, medical records reviewed. Patient states he feels fine and is very anxious for discharge. Denies any recurrent chest discomfort or shortness of breath, palpitations, lightheadedness, dizziness or syncope. Telemetry reviewed: Normal sinus rhythm with short runs of nonsustained ventricular tachycardia. Review of Systems Review of Systems: All systems reviewed & are unremarkable except as noted in HPI & below Physical Exam Physical Exam: General: Awake, alert and oriented x 3. No acute distress. HEENT: Normocephalic, atraumatic. Pupils equal, round and reactive to light and accommodation. Extraocular muscles are intact. Anicteric sclera. Moist mucous membranes. Neck: No JVD. No bruit. Cardiovascular: Regular. Positive S-4. Normal S-1 and S-2. No S-3. No murmurs or rubs. Pulmonary: Clear to auscultation B/L. No rales, rhonchi or wheezing Abdomen: Bowel sounds x 4, soft. No rebound, guarding or tenderness. No organomegaly. Extremities: No clubbing, cyanosis or edema. +2 pedal pulses bilaterally. Skin: Warm and dry. Results & Data Vital Signs (Past 12 Hours) Vital Signs Temp Pulse Pulse Pulse Resp BP Pulse Ox 02/10/20 11:20 36.7 C 91 H 19 120/74 94 02/10/20 10:52 37.0 C 90 90 19 113/71 94 02/10/20 09:23 90 02/10/20 07:07 37.0 C 90 19 113/71 94 02/10/20 04:45 96 H 20 127/76 95 02/10/20 03:22 37.1 C 92 H 18 127/72 94 (1) Chest pain Chest pain type: unspecified Qualified Code(s): R07.9 - Chest pain, unspecified
--- NOTE | 2020-02-10 14:02 | Discharge Summary ---
Date of Service February 10, 2020 Admission HPI Per Admitting Provider Patient is a 69 yo male with history of CABG, dyslipidemia, & prediabetes who presented to the ED with chest pain x 2 days. He had pain starting yesterday along with diaphoresis on and off. The pain subsided later in the day, but returned today. He had no pain while in the ED. He has not had any SOB, [place]. He has had some tingling in both of his arms, and the pain is in the right sternal area and radiates around the right side of his chest into his back. He describes this pain as a dull ache. He can tell "something isn't right". Per the patients record, he had CABG performed in 2007 secondary to an NSTEMI at [facility] by Dr. Mckeon. 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 He has a history of dyslipidemia but has been statin intolerant in the past. He was started on Zetia following his last outpatient visit in November. He takes ASS 81 mg a few times per week but not every day. Since presentation, the patient was noted to have BP up to 186/102. Troponin severely elevated at 28.8. Blood counts normal. AST 220, but other LFTs normal. Renal function normal. He was given Heparin drip, metoprolol, and ASA in the ED for concern of NSTEMI. EKG showed nonspecific ST changes with sinus arrhythmia. CXR showed cardiomegaly with evidence of congestive failure. Cardiology was consulted in the ED, and the patient was sent for cardiac catheterization. Cardiac cath showed severe CAD. Cardiology recommended medical management and ASCVD risk factor modification. Cardiology recommended dual-antiplatelet therapy and continued heparin for now. He was also started on metoprolol. Principal Diagnosis ACUTE NSTEMI( HEART ATTACK ) /DIFFUSE CORONARY ARTERY DISEASE Discharge Exam Constitutional WD/WN, vitals as above Eyes PERRL, conjunctivae normal, anicteric sclerae ENMT external ear and nose normal, oropharynx normal Neck trachea midline, no thyromegaly Respiratory normal respiratory effort, lungs clear to auscultation Cardiovascular RRR, no murmur, no edema Gastrointestinal (Abdomen) normal bowel sounds, soft, nontender, no hepatosplenomegaly Musculoskeletal no cyanosis or clubbing, extremities motor strength 5/5 Skin no rashes, warm and dry Neurologic PERRL, EOMI, accommodation nl, no face palsy, no dysarthria Psychiatric A+Ox3, euthymic affect Discharge Data Allergies Allergy/AdvReac Type Severity Reaction Status Date / Time codeine Allergy Severe Tongue Verified 02/09/20 14:01 evie, has taken Vicodin w/o reaction Consultations 02/09/20 14:00 Consult Cardiology Stat ED Decision to Admit Stat 02/09/20 14:34 Consult Cardiac Catheterization Stat 02/09/20 16:54 Consult Case Management - Discharge Planning Routine Procedures Performed Operation Date: 02/09/20 14:30 Actual Procedures p Cath, Left w/Cors Vent Grafts - Teofilo Banks MD s Cineradiography w/Routine Exam - Teofilo Banks MD Ordered Studies 02/09/20 14:19 CL Cath Imgs for PACS use only Stat Hospital Course (1) NSTEMI (non-ST elevated myocardial infarction): presented with chest pain /unstable angina NSTEMI troponin elevated 29 Taken for cardiac cath emergently due to NSTEMI. S severe CAD : acute 100% mid SVG to OM occlusion with heavy thrombus burden. Cardiology following. Recommended medical management. dual antiplatelet therapy : ASA 81 mg DAILY./Plavix 75 mg daily . Started on beta nati ToprolXL 25 mg daily dose increased to 50 mg daily -as pt's HR on tele noted to between 90-100's with runs of non sustained vtach in am -pt was completely symptom free cont home medication :ACEI :lisinopril 2.5 mg daily cardiac risk modification (2) Chest pain: presented with unstable angina due to NSTEMI symptom has resolved cardiac cath reveals severe CAD ,medical management cardiac meds as outlined above cont PRN SL nitro home med (3) ASCVD (arteriosclerotic cardiovascular disease): (4) History of coronary artery bypass graft: Patient with chest pain starting yesterday and history of CABG. Troponin elevated upon presentation. Taken for cardiac cath due to NSTEMI. Severe CAD noted. Noted to have acute 100% mid SVG to OM occlusion with heavy thrombus burden. Cardiology following. Recommended medical management. Continue ASA 81 mg DAILY. Start Plavix. Start Metoprolol 25 mg daily. Repeat troponin Q6h x 2 more Repeat EKG in AM Continue Nitro PRN chest pain. Tylenol PRN pain otherwise. Allergic to codeine- will defer Morphine for now. Plan for Echo in the AM. Repeat CBC, CMP in AM (5) Hyperlipidemia: given severe CAD , goal LDL < 70 for cardiac risk modification Previously statin intolerant. Continue Zetia. Per Cardiology, consider addition of PCSK9 inhibitor as an outpatient. (6) Statin intolerance: Lipids last checked in November. Follows with Cardio outpatient. Previously statin intolerant. Continue Zetia. Per Cardiology, consider addition of PCSK9 inhibitor as an outpatient. (7) DVT prophylaxis: FULL CODE DISPOSITION : dc home today Total Time Total Time Spent Total Time Spent (In Minutes): approx 40 mins Total Time Includes: Examination of the Patient, Discharge Planning, Medication Reconciliation and 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 With Other Providers Discharge Plan Discharge Items Patient Disposition: Home - Self-Care Reason For Visit: NSTEMI Discharge Diagnosis: ACUTE NSTEMI( HEART ATTACK ) /DIFFUSE CORONARY ARTERY DISEASE Activity: Per Instructions section Non-emergency contact: Primary Care Provider Call non-emergency contact if: you have any medication questions Follow-up/Referrals: Berhane Pompa MD [Physician] - (FOLLOW UP IN 3-4 WEEKS ) Khanh Noel MD [Primary Care Provider] - 02/17/20 10:40 am (02/17/2020 10:40 AM Khanh Noel MD Family Practice [facility] PLEASE NOTE: This appointment is at [facility] [place] Diet: Heart Healthy Addtl Attending Provider Instructions: ACTIVITY RECOMMENDATIONS: Excess manipulation of the wrist should be avoided for the next 24-48 hours. YOU ARE STARTED ON NEW MEDICATIONS : PLAVIX 75 MG 1 TABLET DAILY ( TAKE AFTER MEALS ) CONTINUE TO TAKE ASPIRIN 81 MG DAILY ( TAKE AFTER MEALS ) METOPROLOL 25 MG 1 TABLET DAILY DO NOT TAKE MOTRIN , ALEVE, ADVIL , IBUPROPHEN , NAPROXEN -HIGH RISK FOR BLEEDING IN STOMACH WHILE TAKING ASPIRIN AND PLAVIX * No lifting over 2 pounds (approximately a 1/2 gallon of milk) with the utilized arm for 24 hours. * No strenuous activity such as bowling or tennis for 3 days. * Keep the site of the procedure covered with a bandage for 24 hours. *You may shower the day after the procedure. Do not take a tub bath or submerge the puncture site in water for the next 3 days. *Do not operate any motorized equipment for 3 days. SPECIAL CARE INSTRUCTIONS: The site may be slightly bruised and sore following your procedure. Should any of the following occur, contact the Dr. who performed your procedure. 1. Redness/inflammation, swelling, chills, or fever, or colored drainage at procedure site within 3-7 days after your procedure. 2. Coldness, discoloration, ongoing numbness, severe pain, or swelling. Expect mild tingling of hand and tenderness at the puncture site for up to three days. If this persists beyond three days, or other symptoms develop, notify the Dr. who performed your procedure. BLEEDING: If the procedure site on your wrist begins to bleed, do not panic 1. Place 1 or 2 fingers firmly just slightly above the insertion site to stop the bleeding. You may be able to feel your pulse as you hold pressure. 2. Lift your finger after 5 minutes to see if the bleeding has stopped. 3. Once the bleeding has stopped, gently wipe the wrist area clean with a bandage. * If the bleeding from your wrist does not stop after 10 minutes, or if there is a large amount of bleeding or spurting, call 911 (do not drive yourself to the hospital). SKIN IRRITATION: * You may experience some redness and/or swelling in the area where radiation was administered. If any skin irritation occurs, please contact your family physician. FOLLOW UP VISIT: Keep any scheduled doctor appointments. Pending Studies at Discharge: No Stand-Alone Forms: [facility], Smoking Cessation Medications and DC Order Prescriptions: New clopidogrel 75 mg Tablet 75 mg PO QAM 30 Days Qty: 30 RF: 3 nitroglycerin 0.4 mg Tablet, Sublingual 0.4 mg sublingual Q5M PRN (Reason: Chest Pain) Qty: 30 RF: 0 metoprolol succinate [Toprol XL] 50 mg tablet extended release 24 hr 50 mg PO DAILY Qty: 90 RF: 3 Continued lisinopril 2.5 mg tablet 2.5 mg PO QAM RF: 0 ezetimibe 10 mg tablet 10 mg PO QAM RF: 0 multivitamin Tablet 1 tab PO DAILY RF: 0 aspirin [Aspirin Low Dose] 81 mg Tablet,Delayed Release (Dr/Ec) 81 mg PO DAILY RF: 0 Discontinued ibuprofen 200 mg Tablet 200 mg PO Q6H PRN (Reason: Pain) RF: 0 Discharge Orders: Discharge Order (Routine); Ordered 02/10/20 Ordered By: Elizabeth Dwyer/Other Patient Handouts: Symptoms of a Heart Attack, Nitroglycerin Fast Acting, Cholesterol Control, CAD, Heart Attack Dc, Foods Heart Healthy Admission Data Admit Date/Time: 02/09/20 16:21 Attending Provider: Elizabeth Chamorro Admit Provider: Sher Adamson Primary Care Provider: Khanh Noel Other Providers: Sher Adamson ; Aj Sesay ; Teofilo Banks Other Interventions: Discharge Summary Assessment (RN) Last Done: 02/10/20 10:52
--- NOTE | 2020-02-10 16:21 | Electrocardiogram Report ---
Test Reason : Blood Pressure : / mmHG Vent. Rate : 085 BPM Atrial Rate : 085 BPM P-R Int : 178 ms QRS Dur : 102 ms QT Int : 364 ms P-R-T Axes : 009 014 024 degrees QTc Int : 433 ms Sinus rhythm with Premature atrial complexes Cannot rule out Inferior infarct , age undetermined Abnormal ECG When compared with ECG of 09-FEB-2020 12:40, Premature atrial complexes are now Present Confirmed by Rey Mcfarlane ([id number]) on 02/10/2020 4:20:51 PM Referred By: REFERRED SELF Confirmed By:Rey Mcfarlane
--- NOTE | 2020-02-11 05:56 | Electrocardiogram Report ---
Test Reason : Blood Pressure : / mmHG Vent. Rate : 095 BPM Atrial Rate : 095 BPM P-R Int : 180 ms QRS Dur : 106 ms QT Int : 342 ms P-R-T Axes : 014 015 070 degrees QTc Int : 429 ms Sinus rhythm with Premature atrial complexes Inferior infarct ST elevation, consider inferior injury pattern Abnormal ECG When compared with ECG of 09-FEB-2020 13:58, ST elevation now present in Inferior leads Confirmed by Rey Mcfarlane ([id number]) on 02/11/2020 5:56:28 AM Referred By: REFERRED SELF Confirmed By:Rey Mcfarlane
== END 2020-02-10 14:43 | disposition home or self-care (01) | DRG 281 ==
LOC: ED 12:33 → CC 14:34 → 2S 16:21 → SUATTDRO 16:21

== ENCOUNTER 2022-03-13 21:21 | Inpatient (IN) ==
[2022-03-13] MEDS ORDERED: FAMOTIDINE 20MG IV PUSH 20 MG/5 ML SYR IV STA (22:02)
[2022-03-13 22:25] LABS: Basophils # (auto) 0.02 K/uL (0-0.2); Basophils % (auto) 0.3 %; Eosinophils # (auto) 0.14 K/uL (0-0.5); Eosinophils % (auto) 2.1 %; Hemoglobin 15.4 g/dL (14.0-18.0); Immature Granulocytes # (auto) 0.01 K/uL (0.00-0.02); Immature Granulocytes % (auto) 0.2 %; Lymphocytes # (auto) 2.21 K/uL (1.2-3.4); Lymphocytes % (auto) 33.7 %; Mean Corpuscular Hemoglobin 33.2 pg (25-34); Mean Corpuscular Volume 94.8 fL (80-100); Mean Platelet Volume 9.2 fL (7.4-10.4); Monocytes # (auto) 0.41 K/uL (0.11-0.59); Monocytes % (auto) 6.3 %; Neutrophils # (auto) 3.76 K/uL (1.4-6.5); Neutrophils % (auto) 57.4 %; Platelet Count 230 K/uL (130-400); RDW Standard Deviation 48.1 fL (36.4-46.3); Red Blood Count 4.64 M/uL (4.7-6.1); White Blood Count 6.55 K/uL (4.8-10.8)
--- NOTE | 2022-03-13 22:34 | Emergency Department Note ---
History of Present Illness General Chief complaint: Chest Pain Stated complaint: CHEST PAIN Time Seen by Provider: 03/13/22 21:53 History of Present Illness Maximum Pain Intensity: 5 This 71-year-old with a history of CABG and NSTEMI that follows with Dr. Pompa presents to the ER complaining of intermittent chest pain for the past few days that is worse with eating and better with Rolaids Location: Chest Quality: Discomfort Severity: Moderate Duration: Past 2 days Timing: Started 2 days ago Context: Patient was concerned and came in Modifying factors: better with Rolaids and aspirin; worse with activity eating Patient states this chest pain feels similar to his prior heart attacks. He did get nauseous and sweaty with the pain. The pain comes and goes. He took an ex tra aspirin tonight. Patient denies dyspnea, abdominal pain, leg pain or swelling. He had hip surgery a couple months ago. No prior history of blood clots. Home Medications Medication Instructions Recorded Confirmed Type aspirin 81 mg tablet,delayed 81 mg PO DAILY 02/09/20 03/13/22 History release (Lynda Low Dose Aspirin) ezetimibe 10 mg tablet 10 mg PO QAM 02/09/20 03/13/22 History lisinopril 2.5 mg tablet 2.5 mg PO QPM 02/09/20 03/13/22 History multivitamin 1 tab PO DAILY 02/09/20 03/13/22 History clopidogrel 75 mg tablet 75 mg PO QAM 30 Days #30 tab 02/10/20 03/13/22 Rx nitroglycerin 0.4 mg sublingual 0.4 mg SUBLINGUAL Q5M PRN #30 tab 02/10/20 03/13/22 Rx tablet evolocumab 140 mg/mL subcutaneous 0 mg SUBCUT .[id number] 03/13/22 03/13/22 History pen injector (Sergio Leung) metoprolol succinate 50 mg 25 mg PO QPM 03/13/22 03/13/22 History tablet,extended release 24 hr metoprolol succinate 50 mg 50 mg PO QAM 03/13/22 03/13/22 History tablet,extended release 24 hr (Toprol XL) Allergies Allergy/AdvReac Type Severity Reaction Status Date / Time codeine Allergy Severe Tongue Verified 03/13/22 22:41 swells, has taken Vicodin w/o reaction Past Med/Surg History Medical History ASCVD (arteriosclerotic cardiovascular disease) CAD (coronary artery disease) History of nephrolithotomy with removal of calculi Hyperlipidemia Prediabetes Statin intolerance Surgical History History of coronary artery bypass graft 2007 @ [facility] [place] History of tonsillectomy S/P laser trabeculoplasty of eye Status post cystoscopy with ureteral stent placement Family History Mother Ovarian cancer Father Heart disease Social History Smoking Status: Never smoker Hx Alcohol Use: No Hx Substance Use: No Preferred Language: Mohawk 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 Ability: Effective Issue Clerk Required: No Beliefs That Will Affect Care: None Current Living Situation: Spouse Feels Safe at Home: Yes Assistive Devices: Glasses Review of Systems A total of 10 systems reviewed and were otherwise negative Physical Exam Vital Signs Vital Signs - 24 hr 03/13/22 21:22 03/13/22 21:38 03/13/22 21:40 Temperature 35.6 C L Temperature Source Temporal Artery Scan Pulse Rate 91 H 86 80 Pulse Rate [Apical] 78 Pulse Rhythm Regular Pulse Rhythm [Apical] Regular Pulse Strength [Apical] Normal Respiratory Rate 18 22 16 Respiratory Effort / Characteristics Non-Labored Spontaneous Non-Labored Spontaneous Respiratory Depth Normal Normal Respiratory Pattern Regular Blood Pressure 168/103 H 146/88 H Blood Pressure [Left Arm] 146/88 H Blood Pressure Mean 124 107 Blood Pressure Mean [Left Arm] 107 Blood Pressure Position Sitting Blood Pressure Position [Left Arm] Semi-fowlers Pulse Oximetry 95 96 95 Oxygen Delivery Method Room Air Room Air Room Air Sepsis Recent Fever Within 48 Hours No Sepsis New/Unexplained Change in Mental Status N/A Sepsis Action Taken by Nursing No Action Required 03/13/22 22:00 03/13/22 22:30 03/13/22 23:33 Temperature Temperature Source Pulse Rate 76 76 75 Pulse Rate [Apical] Pulse Rhythm Pulse Rhythm [Apical] Pulse Strength [Apical] Respiratory Rate 15 24 16 Respiratory Effort / Characteristics Respiratory Depth Respiratory Pattern Blood Pressure 135/80 144/86 H 137/83 Blood Pressure [Left Arm] Blood Pressure Mean 98 105 101 Blood Pressure Mean [Left Arm] Blood Pressure Position Blood Pressure Position [Left Arm] Pulse Oximetry 94 95 96 Oxygen Delivery Method Room Air Room Air Room Air Sepsis Recent Fever Within 48 Hours Sepsis New/Unexplained Change in Mental Status Sepsis Action Taken by Nursing VITALS: Vitals are noted on the nurse's note and reviewed by myself. Vital signs stable. GENERAL: Pleasant elderly male sitting on the bed next to his , in no acute distress, nondiaphoretic, well-developed well-nourished. SKIN: The skin was without rashes, erythema, edema, or bruising. There is no tenting of the skin. Capillary reflex less than 2 seconds. HEAD: Normocephalic atraumatic. EARS: External auditory canals clear, EYES: Pupils equal round and reactive to light and accommodation. Conjunctivae without injection, sclerae without icterus. Extraocular movements intact. NOSE: Patent, turbinates without inflammation or discharge. MOUTH: Mucous membranes moist. Pharynx without erythema or exudate. Uvula midline. Airway patent. Tongue does not deviate. NECK: Supple without nuchal rigidity. No lymphadenopathy. No thyromegaly. Cervical spine is nontender. No JVD. HEART: Regular rate and rhythm LUNGS: Clear to auscultation bilaterally without wheezes, rales or rhonchi. No retractions or accessory muscle use. ABDOMEN: Positive bowel sounds x 4. Normal tympanic percussion. Soft, nontender, without masses or organomegaly. [place]ah sign negative. No guarding or rebound tenderness. No CVA tenderness MUSCULOSKELETAL: No muscle atrophy, erythema, noted. NEURO: Patient was alert and oriented to person place and time. Normal sensation to light and sharp touch. No focal neurological deficits. Course Administered Medications Discontinued Medications Aspirin (Aspirin Chew 324 Mg) 243 mg PO NOW STA Stop: 03/13/22 23:28 Last Admin: 03/13/22 23:34 Dose: 243 mg Documented by: [id number] Famotidine (Pepcid 20mg Iv Push) 20 mg in 5 mls @ 2.5 mls/min IV NOW STA Stop: 03/13/22 22:03 Last Admin: 03/13/22 22:10 Dose: 2.5 mls/min Documented by: [id number] Ioversol (Optiray 320 125ml) 125 ml IV ONCE ONE Stop: 03/13/22 23:11 Last Admin: 03/13/22 23:10 Dose: 110 ml Documented by: [id number] Critical Care Time I have personally spent 35 minutes of critical care time in the direct management of this patient. This includes bedside care, interpretation of diagnostic studies, and testing, discussion with consultants, patient, and family members, and other required patient management activities. This 35 minutes is in excess of all separately billable procedures. Medical Decision Making Medical Records Attestation: I reviewed the patient's medical records. Home Medications Current Medication List: was personally reviewed by ar Laboratory Data Attestation: I reviewed the patient's lab results. Result diagrams: 03/13/22 21:34 03/13/22 21:34 Lab Results 03/13/22 03/13/22 03/13/22 Range/Units 21:34 21:34 21:34 WBC 6.55 (4.8-10.8) K/uL RBC 4.64 L (4.7-6.1) M/uL Hgb 15.4 (14.0-18.0) g/dL Hct 44.0 (42-52) % MCV 94.8 (80-100) fL MCH 33.2 (25-34) pg MCHC 35.0 (32-36) g/dL RDW Std Deviation 48.1 H (36.4-46.3) fL RDW Coeff of Brittney 14.0 (11.5-14.5) % Plt Count 230 (130-400) K/uL MPV 9.2 (7.4-10.4) fL Immature Gran % (Auto) 0.2 % Neut % (Auto) 57.4 % Lymph % (Auto) 33.7 % [place] % (Auto) 6.3 % Eos % (Auto) 2.1 % Baso % (Auto) 0.3 % Neut # (Auto) 3.76 (1.4-6.5) K/uL Lymph # (Auto) 2.21 (1.2-3.4) K/uL [place] # (Auto) 0.41 (0.11-0.59) K/uL Eos # (Auto) 0.14 (0-0.5) K/uL Baso # (Auto) 0.02 (0-0.2) K/uL Immature Gran # (Auto) 0.01 (0.00-0.02) K/uL D-Dimer 700 H* (0-500) ug/L FEU Sodium 141 (136-145) mmol/L Potassium 3.9 (3.5-5.1) mmol/L Chloride 106 (98-107) mmol/L Carbon Dioxide 27 (21-32) mmol/L Anion Gap 8 (3-11) BUN 17 (6-23) mg/dl Creatinine 1.00 (0.6-1.4) mg/dl Est Cr Clr Drug Dosing 88.6 ml/min Est GFR ( Amer) 86.2 ml/min Est GFR (Non-Af Amer) 74.3 ml/min BUN/Creatinine Ratio 17.0 (10-20) Glucose 119 H (70-99(Fasting)) mg/dl Calcium 10.2 H (8.5-10.1) mg/dl Total Bilirubin 0.6 (0.2-1.0) mg/dl AST 22 (13-39) U/L ALT 18 (7-52) U/L Alkaline Phosphatase 77 (34-104) U/L Troponin I High Sens 215.7 H* (0-20) pg/ml Total Protein 7.5 (6.0-8.3) gm/dl Albumin 4.4 (3.4-5.0) gm/dl Globulin 3.1 (2.5-4.0) gm/dl Albumin/Globulin Ratio 1.4 (0.9-2) Lipase 29 (11-82) U/L SARS-CoV-2, RNA, NAAT (NEGATIVE) 03/13/22 03/13/22 Range/Units 23:48 23:57 WBC (4.8-10.8) K/uL RBC (4.7-6.1) M/uL Hgb (14.0-18.0) g/dL Hct (42-52) % MCV (80-100) fL MCH (25-34) pg MCHC (32-36) g/dL RDW Std Deviation (36.4-46.3) fL RDW Coeff of Brittney (11.5-14.5) % Plt Count (130-400) K/uL MPV (7.4-10.4) fL Immature Gran % (Auto) % Neut % (Auto) % Lymph % (Auto) % [place] % (Auto) % Eos % (Auto) % Baso % (Auto) % Neut # (Auto) (1.4-6.5) K/uL Lymph # (Auto) (1.2-3.4) K/uL [place] # (Auto) (0.11-0.59) K/uL Eos # (Auto) (0-0.5) K/uL Baso # (Auto) (0-0.2) K/uL Immature Gran # (Auto) (0.00-0.02) K/uL D-Dimer (0-500) ug/L FEU Sodium (136-145) mmol/L Potassium (3.5-5.1) mmol/L Chloride (98-107) mmol/L Carbon Dioxide (21-32) mmol/L Anion Gap (3-11) BUN (6-23) mg/dl Creatinine (0.6-1.4) mg/dl Est Cr Clr Drug Dosing ml/min Est GFR ( Amer) ml/min Est GFR (Non-Af Amer) ml/min BUN/Creatinine Ratio (10-20) Glucose (70-99(Fasting)) mg/dl Calcium (8.5-10.1) mg/dl Total Bilirubin (0.2-1.0) mg/dl AST (13-39) U/L ALT (7-52) U/L Alkaline Phosphatase (34-104) U/L Troponin I High Sens 242.1 H* (0-20) pg/ml Total Protein (6.0-8.3) gm/dl Albumin (3.4-5.0) gm/dl Globulin (2.5-4.0) gm/dl Albumin/Globulin Ratio (0.9-2) Lipase (11-82) U/L SARS-CoV-2, RNA, NAAT NEGATIVE (NEGATIVE) Imaging Data Attestation: I personally reviewed and interpreted this imaging study as fo llows: MDM Narrative Prior records/ancillary studies reviewed. Triage Nursing notes reviewed. Additional history obtained from nursing. The patient's history was concerning for chest pain. Differential diagnosis: Etiologies such as cardiac ischemia, aortic dissection, pulmonary embolism, pneumonia, pneumothorax, musculoskeletal, infections, pericarditis, myocarditis, esophageal rupture, gastrointestinal, as well as others were entertained. Physical examination: As above. ER treatment provided: An order was placed for continuous cardiac monitoring. The monitor shows a rate of 60-100 with a sinus rhythm. Pepcid asa heparin On reassessment the patient felt better. Diagnostic interpretation by me: #1 the electrocardiogram was ordered for chest pain EKG: Normal sinus, Q waves in the inferior leads, no acute ST-T wave changes, rate of 84. Impression normal sinus rhythm with Q waves in the inferior leads interpreted by myself I think arrhythmia is unlikely. EKG shows normal sinus rhythm with no interval abnormalities such as QT prolongation or WPW. There are no findings to suggest Brugada syndrome. Cardiac monitoring in the emergency department reveals no tachycardic or bradycardic dysrhythmia. Hypertrophic cardiomyopathy was considered but there are no clear historical elements pointing toward this. EKG is not suggestive. The QRS voltage is not extremely large #2 EKG ordered for chest pain EKG: Normal sinus, normal intervals, Q waves in the inferior leads, rate of 79. Impression normal sinus rhythm with Q waves in inferior leads interpreted by myself I think arrhythmia is unlikely. EKG shows normal sinus rhythm with no interval abnormalities such as QT prolongation or WPW. There are no findings to suggest Brugada syndrome. Cardiac monitoring in the emergency department reveals no tachycardic or bradycardic dysrhythmia. Hypertrophic cardiomyopathy was considered but there are no clear historical elements pointing toward this. EKG is not suggestive. The QRS voltage is not extremely large #3EKG ordered for chest pain EKG: Normal sinus, normal intervals, Q waves in the inferior leads, rate of 79. Impression normal sinus rhythm with Q waves in inferior leads interpreted by myself I think arrhythmia is unlikely. EKG shows normal sinus rhythm with no interval abnormalities such as QT prolongation or WPW. There are no findings to suggest Brugada syndrome. Cardiac monitoring in the emergency department reveals no tachycardic or bradycardic dysrhythmia. Hypertrophic cardiomyopathy was considered but there are no clear historical elements pointing toward this. EKG is not suggestive. The QRS voltage is not extremely large The labs revealed elevated troponin and repeat was ordered. D-dimer 700 Imaging studies: Chest x-ray cardiomegaly, no acute consolidation pneumothorax or free air per my interpretation CTA CHEST: No pulmonary embolus. No aortic aneurysm or dissection. Interseptal thickening could relate to atelectasis and/or pulmonary edema. The heart size is within normal limits. No pathologically enlarged lymph nodes. No fracture. Radiologist: Annie Bruno MD HEART SCORE: Hx: high/mod/low suspicion: 1 ECG: ST depression/nonspecific changes/normal: 0 Age: Greater than 65/45-64/less than 45: 2 Risk factors: (Hypertension, hyperlipidemia, diabetes, coronary disease, tobacco use, cocaine use): 2 Troponin: Greater than 2 times normal limits/1-2 times normal limits/normal: 2 Total: 7 Consultation: A consultation was placed with the hospitalist. The case was discussed and diagnostics were reviewed. The patient was evaluated in the ER for further treatment. With discussion with the hospitalist we recommend heparin with no bolus. This was ordered. Exam and history seem consistent with NSTEMI. 3 EKGs showed no acute ST elevation. Repeat troponin was ordered. Medicine was consulted. He will be admitted. By the evaluation outlined above emergent etiologies such as aortic dissection, pulmonary embolism, pneumonia, pneumothorax, infections, pericarditis, myocarditis, gastrointestinal, as well as others were deemed relatively unlikely. The pt informed about the findings as listed above. All questions were answered and pleased with the treatment. The chart was completed utilizing [employer] Speech voice recognition software. Grammatical errors, random word insertions, pronoun errors, and incomplete sentences are an occassional consequence of this system due to software limitations, ambient noise, and hardware issues. Any formal questions or concerns about the content, text, or information contained within the body of this dictation should be directly addressed to the physician payroll assistant for clarification. Impression & Plan Non-ST elevation CA (NSTEMI) Discharge Plan Visit Data Chief Complaint: Chest Pain Stated Complaint: CHEST PAIN ED Provider: Israel Bui ED Midlevel Provider: Lisbet King Discharge Problem: Non-ST elevation CA (NSTEMI) Patient Disposition: Admitted As Inpatient Condition: Good Forms Stand Alone Forms: [email or web address] Prescriptions Prescriptions: No Action lisinopril 2.5 mg tablet 2.5 mg PO QPM RF: 0 ezetimibe 10 mg tablet 10 mg PO QAM RF: 0 multivitamin Tablet 1 tab PO DAILY RF: 0 aspirin [Lynda Low Dose Aspirin] 81 mg Tablet,Delayed Release (Dr/Ec) 81 mg PO DAILY RF: 0 clopidogrel 75 mg Tablet 75 mg PO QAM 30 Days Qty: 30 RF: 3 nitroglycerin 0.4 mg Tablet, Sublingual 0.4 mg sublingual Q5M PRN (Reason: Chest Pain) Qty: 30 RF: 0 metoprolol succinate 50 mg tablet extended release 24 hr 25 mg PO QPM RF: 0 metoprolol succinate [Toprol XL] 50 mg tablet extended release 24 hr 50 mg PO QAM RF: 0 Repatha SureClick 140 mg/mL pen injector 0 mg SUBCUT .[id number] RF: 0 Referrals Referrals: Khanh Noel MD [Primary Care Provider] -
[2022-03-13 22:36] LABS: D Dimer 700 ug/L FEU (0-500)
[2022-03-13 22:45] LABS: Albumin Globulin Ratio 1.4 (0.9-2); Albumin Level 4.4 gm/dl (3.4-5.0); Bilirubin,Total 0.6 mg/dl (0.2-1.0); Calcium 10.2 mg/dl (8.5-10.1); Creatinine Clr Calc Pharmacy 88.6 ml/min; Est GFR (African American) 86.2 ml/min; Est GFR (Non-African American) 74.3 ml/min; Globulin 3.1 gm/dl (2.5-4.0); Potassium 3.9 mmol/L (3.5-5.1); Total Protein 7.5 gm/dl (6.0-8.3)
[2022-03-13 22:46] LABS: Troponin I High Sensitivity 215.7 pg/ml (0-20)
[2022-03-13] MEDS ORDERED: OPTIRAY 320 125ml IV ONE (23:10)
[2022-03-13] MEDS ORDERED: ASPIRIN CHEW 324 MG PO STA (23:27)
[2022-03-14] MEDS ORDERED: Heparin IV Adult Wt-Based Standard *NO* Bolus Protocol ONE (00:09)
[2022-03-14 01:05] LABS: Prothrombin Time 10.7 Seconds (9.0-12.0)
[2022-03-14] MEDS: HEPARIN SODIUM/DEXTROSE 25,000 UNITS/500 ML BAG IV SCH ×2 (01:08→16:09)
[2022-03-14] MEDS ORDERED: NITROGLYCERIN SL 0.4 MG/TAB TAB SL PRN (03:25)
[2022-03-14] MEDS ORDERED: ACETAMINOPHEN 325 MG TAB PO PRN (03:25)
[2022-03-14] MEDS ORDERED: POLYETHYLENE (MIRALAX) 17 GM PACK PO PRN (03:25)
--- NOTE | 2022-03-14 03:38 | History and Physical Report ---
DATE OF ADMISSION: 03/14/2022. CHIEF COMPLAINT: Chest pain. HISTORY OF PRESENT ILLNESS: This is a 71-year-old male with past medical history significant for hyperlipidemia, prediabetes, history of osteoarthritis, history of CAD, status post CABG, presents with chest pain. The patient states he was moving his water tank around 5-6 p.m., he noticed to have mid chest pain radiating to somewhere back about 5/10 in severity. No nausea, no dizziness, no headache. While coming to the hospital he was sweaty. He received aspirin in the ER. Currently, his chest pain is resolved, resting comfortably. Denies any blurred visions, no earache, no runny nose, no sore throat, no cough, no fever, no chills, no nausea, no abdominal pain, normal bowel and bladder movements. Otherwise, ambulates okay. ALLERGIES: CODEINE. PAST MEDICAL HISTORY: As mentioned above. PAST SURGICAL HISTORY: CABG, colonoscopy, cystoscopy, laser trabeculoplasty, removal of kidney stones, removal of small bladder stone, tonsillectomy and adenoidectomy. MEDICATIONS: The patient is on aspirin 81 mg p.o. daily, Plavix 75 mg p.o. a.m., Repatha subcutaneous q. 14 days, ezetimibe 10 mg p.o. a.m., lisinopril 2.5 mg p.o. p.m., metoprolol succinate 12.5 mg p.o. p.m., metoprolol succinate 50 mg p.o. a.m., multivitamins one tablet p.o. daily, nitroglycerin 0.4 mg sublingual p.r.n. FAMILY HISTORY: Significant for mother has ovarian cancer, father has heart disorder. SOCIAL HISTORY: . No smoking. No alcohol use. No drug use. REVIEW OF SYSTEMS: As per HPI. Rest of the review of systems is negative. PHYSICAL EXAMINATION: GENERAL: The patient is obese, not in acute distress. VITAL SIGNS: Temperature 35.6, pulse 66, respiratory rate 16, blood pressure 138/80, oxygen 97% on room air. HEENT: Pupils equal, round and reactive to light. Oral mucosa moist. NECK: No JVD or neck masses. CARDIOVASCULAR: S1 and S2 heard. Regular rate and rhythm. No murmur, no gallop. RESPIRATORY SYSTEM: Normal AP diameter. No accessory muscle use. No wheezing, no crackles. ABDOMEN: Soft. Bowel sounds are present, nontender, no distention. CENTRAL NERVOUS SYSTEM: Cranial nerves II through XII are grossly intact, nonfocal. EXTREMITIES: No edema, no erythema. LABORATORY: WBC 6.5, hemoglobin 15.4, hematocrit 44, platelets 230. PT 10.7, INR 1. D-dimer 700. Sodium 141, potassium 3.9, chloride 106, bicarb 27, BUN 17, creatinine 1, serum glucose 119, calcium 10.2, total bilirubin 0.6, AST 22, ALT 18, alkaline phosphatase 77. Troponin I high sensitivity 215, repeat is 242. BNP is 97, lipase 29. SARS-CoV-2 rapid test negative. IMAGING: CTA of the chest, no pulmonary embolism, no aortic dissection or aneurysm. EKG: Sinus rhythm with first-degree AV block with PACs at a rate of 74. ASSESSMENT AND PLAN: This is a 71-year-old male who presents with chest pain. 1. Chest pain of possible sva-LV-ecoaagdy myocardial infarction. His troponin is 242. History of coronary artery disease, status post coronary artery bypass graft. Continue his home medication, aspirin, Plavix, lisinopril, metoprolol. The patient is getting ezetimibe and Repatha. Starting on low-dose IV heparin. Follow serial cardiac enzymes, echo, n.p.o. Monitor in the tele. Consult cardiology in a.m. 2. History of hypertension. Continue home medication of metoprolol succinate and lisinopril. We will monitor the blood pressure. 3. History of hyperlipidemia. Continue his ezetimibe and also on Repatha. 4. Prediabetes. Follow HbA1c levels. 5. Deep venous thrombosis prophylaxis, IV heparin. DISPOSITION: Closely monitor in the tele floor. PT/OT prior to discharge. Social Service to help with discharge planning. Level 1 full code. Job ID: [id number] [facility]
--- NOTE | 2022-03-14 07:23 | XRay Report ---
XR chest 1V portable CLINICAL HISTORY: Atypical chest pain TECHNIQUE: Single frontal radiograph of the chest was obtained. Comparison: Comparison is made to chest radiograph 02/09/2020 FINDINGS: Median sternotomy wires are unchanged. The cardiomediastinal silhouette is normal. Lungs are underinf lated but clear. No evidence of pleural effusion or pneumothorax. IMPRESSION: No acute chest disease. ACT 112: Negative or not required by law. Electronically signed by: Zhen Trevino M.D. 03/14/2022 7:22 AM
--- NOTE | 2022-03-14 07:34 | CT Scan Report ---
CT angio chest PE protocol CLINICAL HISTORY: Chest pain COMPARISON STUDY: Portable chest from 03/13/2022 CT DOSE: 809.33 mGy.cm TECHNIQUE: CT Angio of the chest was performed.followed by image post processing with coronal, and s agittal MIP reformats. Contrast Volume: Optiray 320, 110 ml FINDINGS: Vasculature: There is homogeneous perfusion of the pulmonary vasculature bilaterally. No intraluminal filling defects or evidence for pulmonary embolus is seen. Airway: The airway is clear. No endobronchial lesion is identified. Lungs: There is minimal breathing motion artifact present. The lungs are clear of acute alveolar opac ities, air bronchograms or pulmonary nodules. Pleura: There is no evidence for pleural effusion. There is no evidence for pneumothorax. Mediastinum: There is no evidence for pathologic adenopathy. The heart size is within normal limits s tatus post previous cardiothoracic surgery. Coronary artery calcification is present. The thoracic ao rta is within normal limits. There is no evidence for pericardial effusion. Upper abdomen:The adrenal glands are normal bilaterally. There is small hiatal hernia. Osseous structures: There is no acute osseous pathology. Impression: 1. No CTA evidence for pulmonary embolus. 2. No acute chest disease. 3. Coronary artery calcification. 4. Small hiatal hernia. ACT 112: Negative or not required by law. Electronically signed by: Miguel Rinaldi M.D. 03/14/2022 7:31 AM
[2022-03-14 07:47] LABS: Estimated Average Glucose 123 mg/dl; Hemoglobin A1C 5.9 % (4.5-5.6)
[2022-03-14 07:48] LABS: Basophils # (auto) 0.01 K/uL (0-0.2); Basophils % (auto) 0.2 %; Eosinophils # (auto) 0.19 K/uL (0-0.5); Eosinophils % (auto) 3.7 %; Hematocrit (blood only) 42.1 % (42-52); Hemoglobin 14.5 g/dL (14.0-18.0); Immature Granulocytes # (auto) 0.01 K/uL (0.00-0.02); Immature Granulocytes % (auto) 0.2 %; Lymphocytes # (auto) 2.18 K/uL (1.2-3.4); Lymphocytes % (auto) 42.7 %; Mean Corpuscular Hemoglobin 32.2 pg (25-34); Mean Corpuscular Hgb Conc 34.4 g/dL (32-36); Mean Corpuscular Volume 93.3 fL (80-100); Mean Platelet Volume 9.2 fL (7.4-10.4); Monocytes # (auto) 0.44 K/uL (0.11-0.59); Monocytes % (auto) 8.6 %; Neutrophils # (auto) 2.27 K/uL (1.4-6.5); Neutrophils % (auto) 44.6 %; Platelet Count 196 K/uL (130-400); RDW Coefficient of Variation 14.1 % (11.5-14.5); RDW Standard Deviation 48.3 fL (36.4-46.3); Red Blood Count 4.51 M/uL (4.7-6.1)
[2022-03-14] MEDS: ASPIRIN 81 MG ECTAB PO SCH (07:52)
[2022-03-14] MEDS: MULTIVITAMIN TAB PO SCH (07:53)
[2022-03-14] MEDS: EZETIMIBE 10 MG TABLET PO SCH (07:53)
[2022-03-14] MEDS: CLOPIDOGREL BISULFATE 75 MG TAB PO SCH (07:53)
[2022-03-14] MEDS: METOPROLOL SUCC 50MG EXT REL TAB PO SCH (07:53)
[2022-03-14 08:06] LABS: Calcium 9.7 mg/dl (8.5-10.1); Creatinine Clr Calc Pharmacy 112.3 ml/min; Est GFR (African American) 103.2 ml/min; Est GFR (Non-African American) 89.1 ml/min; Magnesium 1.9 mg/dl (1.7-2.4); Potassium 3.9 mmol/L (3.5-5.1)
[2022-03-14 08:14] LABS: Troponin I High Sensitivity 445.4 pg/ml (0-20)
[2022-03-14 08:17] LABS: Partial Thromboplastin Time 54.4 Seconds (21.0-31.0)
--- NOTE | 2022-03-14 08:17 | Cardiology Consultation ---
Date of Consultation March 14, 2022 Assessment & Plan (1) NSTEMI (non-ST elevated myocardial infarction): (2) CAD (coronary artery disease): (3) History of coronary artery bypass graft: (4) Hyperlipidemia: (5) Statin intolerance: Medically complex 71-year-old male with history of coronary artery disease, status post CABG in 2007. 01/2020 ACS noted with thrombosis of the SVG to OM-patient was medically managed. x2-3 days of dull/burning chest discomfort that radiated to his back, relieved by Rolaids, but occurs post exertion. No other associated symptoms. EKG showed sinus rhythm with an inferior infarct, known. No acute ST segment changes Echocardiogram pending HS Troponin elevated 200>>400 Patient currently chest pain-free. 1. Continue IV heparin drip treatment of NSTEMI 2. Continue dual antiplatelet therapy with aspirin 81 mg daily and Plavix 75 mg daily 3. Continue goal-directed medical therapy with metoprolol and lisinopril. Hypertensive inpatient- normally well controlled outpatient, will not adjust medications at this time. Future consideration of increasing lisinopril. 4. Discussed the possible need for cardiac catheterization at a tertiary care center vs here at [facility]-we will discuss further with Dr. Pompa 5. Further recommendations pending echocardiogram review. Case discussed with Dr. Pompa, will follow. Supervising Physician Co-Signing Physician Notes Patient was seen and examined, chart reviewed.Assessment and plan as noted above. Discussed findings in detail with patient. Findings consistent with non-ST segment elevation myocardial infarction with crescendo angina. Patient had past atypical symptoms with coronary presentations. Recommend proceeding to diagnostic cardiac catheterization and patient agreeable Prior images from 2019 reviewed Planning procedure later today. Informed consent obtained History of Present Illness Reason for Consultation: Chest pain, elevated troponin Requesting Physician: Bird Bello Attending Physician: Aj Sesay MD History of Present Illness Medically complex 71-year-old male with a history of coronary artery disease, status post CABG. He also has a history of ACS in January 2020 demonstrating an occluded/thrombosed SVG to OM. Medical management was advised. Yesterday patient was at home working at his house and moved a [employer] water tank. When he came inside he had a 7 up as he was thirsty from the heat and started to develop indigestion-like symptoms/chest burning that radiated to his back. After the last 2 to 3 days he has been having similar symptoms that he felt was indigestion symptoms improved with taking Rolaids. He has also been feeling more fatigued and sluggish over the last few days. Patient states that his symptoms were vaguely familiar to January 2020 but much less severe. No shortness of breath, palpitations, dizziness or syncope. No orthopnea or PND. No increased lower extremity edema. In the emergency department EKG showed sinus rhythm with a first-degree AV block, no acute ST segment elevation, inferior infarct noted. Patient treated with for NSTEMI and started on a heparin drip. Chart and telemetry reviewed. Patient seen and examined at bedside. Upon entrance into the room patient resting comfortably in bed chest pain-free. Denies any missed doses of his medications. EKG: Sinus rhythm with a first-degree AV block and PACs. Inferior infarct noted. Echo: PENDING HS Troponin: 215>>242>>445 D-dimer elevated-->CT chest: No evidence of PE, no acute disease, coronary artery calcifications, small hiatal hernia Tele: SR 70-80s, PVCs Past medical history: -Atherosclerotic coronary disease, status post coronary bypass grafting after [id number] elevation myocardial infarction in 2007, receiving a ROY graft to the LAD, a saphenous vein graft to the diagonal, a saphenous vein graft to an obtuse marginal. -Late presentation with ACS 02/09/2020 cardiac cath demonstrating occluded/thromboses SVG to the OM -HTN -Moderate obesity -Hyperlipidemia, Statin intolerance with multiple trials including simvastatin, atorvastatin, rosuvastatin low-dose now on Repatha -Less than 50% stenosis of bilateral internal carotid arteries Allergies Allergy/AdvReac Type Severity Reaction Status Date / Time codeine Allergy Severe Tongue Verified 03/13/22 22:41 swells, has taken Vicodin w/o reaction Home Medications Medication Instructions Recorded Confirmed Type aspirin 81 mg tablet,delayed 81 mg PO DAILY 02/09/20 03/13/22 History release (Lynda Low Dose Aspirin) ezetimibe 10 mg tablet 10 mg PO QAM 02/09/20 03/13/22 History lisinopril 2.5 mg tablet 2.5 mg PO QPM 02/09/20 03/13/22 History multivitamin 1 tab PO DAILY 02/09/20 03/13/22 History clopidogrel 75 mg tablet 75 mg PO QAM 30 Days #30 tab 02/10/20 03/13/22 Rx nitroglycerin 0.4 mg sublingual 0.4 mg SUBLINGUAL Q5M PRN #30 tab 02/10/20 03/13/22 Rx tablet evolocumab 140 mg/mL subcutaneous 0 mg SUBCUT .[id number] 03/13/22 03/13/22 History pen injector (Sergio Leung) metoprolol succinate 50 mg 25 mg PO QPM 03/13/22 03/13/22 History tablet,extended release 24 hr metoprolol succinate 50 mg 50 mg PO QAM 03/13/22 03/13/22 History tablet,extended release 24 hr (Toprol XL) Patient History Medical History ASCVD (arteriosclerotic cardiovascular disease) CAD (coronary artery disease) History of nephrolithotomy with removal of calculi Hyperlipidemia Prediabetes Statin intolerance Surgical History [place] of coronary artery [place] [facility] [place] of tonsillectomy S/P laser trabeculoplasty of eye Status post cystoscopy with ureteral stent placement Family History Mother Ovarian cancer Father Heart disease Social History Smoking Status: Never smoker Hx Alcohol Use: No Hx Substance Use: No Preferred Language: Danish 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: No Beliefs That Will Affect Care: None marital status: Current Living Situation: Spouse Other Information That Helps Us Care for You: No Feels Safe at Home: No Is there a partner from a previous relationship who is making you feel unsafe now?: No Any Concerns about Your Family Situation: No Would You Like to Speak to Someone About Your Situation: No Safety Concerns: Feels Safe At This Time Assistive Devices: Walker Review of Systems Review of Systems: All systems reviewed & are unremarkable except as noted in HPI & below Physical Exam Constitutional: WD/WN, vitals as above Eyes: PERRL, conjunctivae normal, anicteric sclerae ENMT: external ear and nose normal, oropharynx normal Neck: normal visual inspection Respiratory: normal respiratory effort, lungs clear to auscultation Cardiovascular: RRR, no murmur, no edema Heart Sounds: normal S1 and normal S2; no murmur Vessels: normal peripheral pulses; no JVD and no carotid bruit Extremities: + edema (trace RLE edema) Gastrointestinal (Abdomen): normal bowel sounds, soft, nontender, no hepatosplenomegaly Musculoskeletal: no cyanosis or clubbing, extremities motor strength 5/5 Skin: no rashes, warm and dry Neurologic: PERRL, EOMI, accommodation nl, no face palsy, no dysarthria Psychiatric: A+Ox3, euthymic affect Results & Data ([facility]) Vital Signs (Past 12 Hours) Vital Signs Temp Pulse Pulse Resp BP BP Pulse Ox 03/14/22 07:45 36.8 C 73 18 152/93 H 95 03/14/22 03:56 81 03/14/22 03:44 36.8 C 74 16 160/97 H 95 03/14/22 03:32 37.0 C 67 20 160/86 H 96 03/14/22 00:36 66 16 138/80 97 03/14/22 00:30 68 21 136/79 94 03/14/22 00:00 71 16 128/92 95 03/13/22 23:33 75 16 137/83 96 03/13/22 22:30 76 24 144/86 H 95 03/13/22 22:00 76 15 135/80 94 03/13/22 21:40 80 16 95 03/13/22 21:38 86 78 22 146/88 H 146/88 H 96 03/13/22 21:22 35.6 C L 91 H 18 168/103 H 95 Laboratory Results Cardiac Enzymes 03/13/22 03/13/22 03/14/22 Range/Units 21:34 23:48 00:40 AST 22 (13-39) U/L Troponin I High Sens 215.7 H* 242.1 H* (0-20) pg/ml B-Natriuretic Peptide 97 (0-100) pg/ml 03/14/22 Range/Units 07:15 AST (13-39) U/L Troponin I High Sens 445.4 H* D (0-20) pg/ml B-Natriuretic Peptide (0-100) pg/ml Coagulation 03/14/22 03/14/22 03/14/22 Range/Units 00:40 00:40 07:15 PT 10.7 (9.0-12.0) Seconds APTT 54.4 H* (21.0-31.0) Seconds B-Natriuretic Peptide 97 (0-100) pg/ml CBC 03/13/22 03/14/22 Range/Units 21:34 07:15 WBC 6.55 5.10 (4.8-10.8) K/uL RBC 4.64 L 4.51 L (4.7-6.1) M/uL Hgb 15.4 14.5 (14.0-18.0) g/dL Hct 44.0 42.1 (42-52) % Plt Count 230 196 (130-400) K/uL Neut # (Auto) 3.76 2.27 (1.4-6.5) K/uL Lymph # (Auto) 2.21 2.18 (1.2-3.4) K/uL Reeves # (Auto) 0.41 0.44 (0.11-0.59) K/uL Eos # (Auto) 0.14 0.19 (0-0.5) K/uL Baso # (Auto) 0.02 0.01 (0-0.2) K/uL Comprehensive Metabolic Panel 03/13/22 03/14/22 Range/Units 21:34 07:15 Sodium 141 140 (136-145) mmol/L Potassium 3.9 3.9 (3.5-5.1) mmol/L Chloride 106 106 (98-107) mmol/L Carbon Dioxide 27 27 (21-32) mmol/L BUN 17 15 (6-23) mg/dl Creatinine 1.00 0.79 (0.6-1.4) mg/dl Glucose 119 H 104 H (70-99(Fasting)) mg/dl Calcium 10.2 H 9.7 (8.5-10.1) mg/dl AST 22 (13-39) U/L ALT 18 (7-52) U/L Alkaline Phosphatase 77 (34-104) U/L Total Protein 7.5 (6.0-8.3) gm/dl Albumin 4.4 (3.4-5.0) gm/dl Intake and Output 03/13/22 03/14/2203/14/22 22:59 06:59 14:59 Intake Total 120 / 120 200.6 / 200.6 Balance 120 / 120 200.6 / 200.6 Intake: IV 200.6 / 200.6 Heparin Sodium/Dextrose 25,000 200.6 / 200.6 units In 500 ml @ 1,700 UNITS/ HR 34 mls/hr IV .[id number] [facility] Rx #:[id number] Oral 120 / 120 Other: Weight 121.5 kg 122 kg Weight Measurement Method Chair Scale Standing Scale Diagnostic Findings Echo 03/14/2022 PENDING Cardiac catheterization February 09, 2020 Summary: 1. Severe multivessel coronary artery disease -Chronic 100% ostial LAD occlusion Chronic 100% ostial OM1 occlusion, 80-90% proximal small OM2 60 to 70% eccentric mid RCA, diffuse moderate disease in small right PDA 2. Acute 100% mid SVG to OM occlusion with heavy thrombus burden 3. 80% proximal SVG to first diagonal 4. Patent ROY to LAD 5. Normal intracardiac filling pressure Recommendations: Patient more than 24 hours out from initial symptoms and is now chest pain-free. Recommend medical management of culprit SVG-OM occlusion. First diagonal is a small vessel and will defer intervention to upstream vein graft at this time. If were to have limiting anginal symptoms in the future SVG to diagonal appears amenable to PCI (1) CAD (coronary artery disease) Associated angina: with unspecified angina Coronary Disease-Associated Artery/Lesion type: unspecified vessel or lesion type [place] vs. transplanted heart: unspecified whether [place] or transplanted heart Qualified Code(s): I25.119 - Atherosclerotic heart disease of [place] coronary artery with un specified angina pectoris
--- NOTE | 2022-03-14 11:52 | Electrocardiogram Report ---
Test Reason : Blood Pressure : / mmHG Vent. Rate : 079 BPM Atrial Rate : 079 BPM P-R Int : 184 ms QRS Dur : 104 ms QT Int : 380 ms P-R-T Axes : 027 -06 036 degrees QTc Int : 435 ms Sinus rhythm with Premature atrial complexes ppossible Inferior infarct (cited on or before 09-FEB-2020) Abnormal ECG When compared with ECG of 13-MAR-2022 21:30, (unconfirmed) No significant change was found Confirmed by Ernesto Hood ([id number]) on 03/14/2022 11:51:59 AM Referred By: REFERRED SELF Confirmed By:Eugene Hood
--- NOTE | 2022-03-14 11:52 | Electrocardiogram Report ---
Test Reason : Blood Pressure : / mmHG Vent. Rate : 084 BPM Atrial Rate : 084 BPM P-R Int : 208 ms QRS Dur : 108 ms QT Int : 364 ms P-R-T Axes : 048 000 021 degrees QTc Int : 430 ms Sinus rhythm with Premature atrial complexes and 1st degree AV block Inferior infarct (cited on or before 09-FEB-2020) Abnormal ECG Confirmed by Ernesto Hood ([id number]) on 03/14/2022 11:51:46 AM Referred By: REFERRED SELF Confirmed By:Eugene Hood
--- NOTE | 2022-03-14 11:53 | Electrocardiogram Report ---
Test Reason : Blood Pressure : / mmHG Vent. Rate : 074 BPM Atrial Rate : 074 BPM P-R Int : 222 ms QRS Dur : 110 ms QT Int : 382 ms P-R-T Axes : 034 -06 056 degrees QTc Int : 424 ms Sinus rhythm with 1st degree A-V block with Premature atrial complexes possible Inferior infarct (cited on or before 09-FEB-2020) Abnormal ECG When compared with ECG of 13-MAR-2022 22:21, (unconfirmed) AL interval has increased Confirmed by Ernesto Hood ([id number]) on 03/14/2022 11:52:49 AM Referred By: REFERRED SELF Confirmed By:Eugene Hood
--- NOTE | 2022-03-14 11:56 | Electrocardiogram Report ---
Test Reason : Blood Pressure : / mmHG Vent. Rate : 073 BPM Atrial Rate : 073 BPM P-R Int : 204 ms QRS Dur : 110 ms QT Int : 404 ms P-R-T Axes : 014 -04 014 degrees QTc Int : 445 ms Normal sinus rhythm Nonspecific T wave abnormality possible old inferior OR Abnormal ECG When compared with ECG of 13-MAR-2022 23:48, (unconfirmed) Premature atrial complexes are no longer Present Confirmed by Ernesto Hood ([id number]) on 03/14/2022 11:56:11 AM Referred By: REFERRED SELF Confirmed By:Eugene Hood
--- NOTE | 2022-03-14 11:58 | Electrocardiogram Report ---
Test Reason : Blood Pressure : / mmHG Vent. Rate : 076 BPM Atrial Rate : 076 BPM P-R Int : 200 ms QRS Dur : 110 ms QT Int : 392 ms P-R-T Axes : 003 -03 028 degrees QTc Int : 441 ms Normal sinus rhythm with 1st degree AV block Nonspecific T wave abnormality Abnormal ECG When compared with ECG of 13-MAR-2022 23:48, (unconfirmed) Premature atrial complexes are no longer Present Confirmed by Ernesto Hood ([id number]) on 03/14/2022 11:58:15 AM Referred By: REFERRED SELF Confirmed By:Eugene Hood
[2022-03-14] MEDS ORDERED: SODIUM CHLORIDE 0.9% 1000ML 1,000 ML IV SCH ×2 (13:00→16:30)
[2022-03-14] MEDS ORDERED: MIDAZOLAM HCL 1 MG/ML 2ML VIAL ONE (13:37)
[2022-03-14] MEDS ORDERED: fentaNYL citrate 100 MCG/2 ML VIAL ONE ×2 (13:37→15:19)
[2022-03-14] MEDS ORDERED: HEPARIN (PORCINE) 1000 UNIT/ML 10 ML (CATH LAB USE ONLY) ONE (14:16)
[2022-03-14] MEDS ORDERED: NITROGLYCERIN 5 MG/ML 10 ML VIAL ONE (14:17)
[2022-03-14] MEDS ORDERED: niCARdipine HCL INJ 2.5 MG/ML 10 ML AMP ONE (14:17)
[2022-03-14] MEDS ORDERED: CLOPIDOGREL BISULFATE 300 MG TAB ONE (15:18)
--- NOTE | 2022-03-14 15:55 | Pre Anesthesia Assessment ---
Date of Service March 14, 2022 Pre Sedation Assessment Vital Signs Temp Pulse Pulse Resp BP BP Pulse Ox 03/14/22 15:45 68 18 138/82 94 03/14/22 15:30 69 18 128/92 96 03/14/22 11:28 98.6 F 71 19 143/85 H 94 03/14/22 08:00 67 03/14/22 07:45 98.2 F 73 18 152/93 H 95 03/14/22 03:56 81 03/14/22 03:44 98.2 F 74 16 160/97 H 95 03/14/22 03:32 98.6 F 67 20 160/86 H 96 03/14/22 00:36 66 16 138/80 97 03/14/22 00:30 68 21 136/79 94 03/14/22 00:00 71 16 128/92 95 03/13/22 23:33 75 16 137/83 96 03/13/22 22:30 76 24 144/86 H 95 03/13/22 22:00 76 15 135/80 94 03/13/22 21:40 80 16 95 03/13/22 21:38 86 78 22 146/88 H 146/88 H 96 03/13/22 21:22 96.1 F L 91 H 18 168/103 H 95 Cardiovascular RRR, no murmur, no edema Respiratory normal respiratory effort, lungs clear to auscultation Pre-Sedation Airway Assessment Smoking Status: Never smoker Hx Sleep Apnea: No Hx Difficult Intubation: No Short, Thick Neck: No Thyromental Distance: > or= 3.5 Finger Breadths Oral Cavity: + WNL Mallampati Class: III ASA: ASA3 Procedure Planning Contraindications for Sedation: none Current Medications Reviewed: Yes Notes The planned sedation has been discussed with the patient. Informed Consent was obtained. I have identified the patient, determined the appropriateness of sedation and have assessed the patient immediately prior to the procedure. All medicine(s) and interventions are by my order.
--- NOTE | 2022-03-14 15:56 | Post Anesthesia Assessment ---
Date of Service March 14, 2022 Post Sedation Assessment Vital Signs Temp Pulse Pulse Resp BP BP Pulse Ox 03/14/22 15:45 68 18 138/82 94 03/14/22 15:30 69 18 128/92 96 03/14/22 11:28 98.6 F 71 19 143/85 H 94 03/14/22 08:00 67 03/14/22 07:45 98.2 F 73 18 152/93 H 95 03/14/22 03:56 81 03/14/22 03:44 98.2 F 74 16 160/97 H 95 03/14/22 03:32 98.6 F 67 20 160/86 H 96 03/14/22 00:36 66 16 138/80 97 03/14/22 00:30 68 21 136/79 94 03/14/22 00:00 71 16 128/92 95 03/13/22 23:33 75 16 137/83 96 03/13/22 22:30 76 24 144/86 H 95 03/13/22 22:00 76 15 135/80 94 03/13/22 21:40 80 16 95 03/13/22 21:38 86 78 22 146/88 H 146/88 H 96 03/13/22 21:22 96.1 F L 91 H 18 168/103 H 95 Recovery Score Activity: Moves 4 extremities Respiration: Deep Breath/Cough Circulation: +/-20% PreAnes Value Consciousness: Fully Awake Oxygen Saturation: > 92% On Room Air Post Anesthesia Score: 10 Discharge Sedation Level of Care: Fast Track Phase II Post Sedation Plan On clinical assessment, the patient appears to have tolerated the sedation without complications. Patient is recovering as anticipated. Patient will continue to be monitored by nursing and may be discharged when sedation discharge criteria are met per below protocol. Upon Completions of procedure up to 15 minutes continue every 5 minute vital signs and the P.A.R. score; then discharge to a Phase I or Fast Track to Phase II per the following guidelines: * Discharge Patient to appropriate Phase II area if PAR is 8 or greater or return to pre- procedure baseline. The post - procedure orders will be as directed. * If PAR score is less than 8 or not return to pre-procedure baseline then patient will follow Phase I monitoring till PAR is reached for Phase II. The Phase I may be done in procedure room or may call to secure a Phase I area. * If naloxone or flumazenil are used for reversal, hold in Phase I for continued monitoring from when last reversal dose was given for a minimum of 60 minutes or longer pending the nurse and/or physician discretion of patient condition before discharge to Phase II. Please call the Sedation Physician to re-evaluate and complete post-note for discharge to Phase II area. Do NOT discharge from procedure sedation or Phase 1 until post- sedation evaluation note is complete by procedure /sedation MD Sedation Discharge Instructions to be given to the patient at discharge to home.
--- NOTE | 2022-03-14 16:00 | Cardiac Catheterization ---
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 Cardiac Status Clinical evaluation leading to the procedure CAD Presenation: Non STEMI Anginal Classification: CCS IV Diagnostic Physicians Name: Ernesto Banks MD Closure Device Recommendations: PCI without planned CABG Cardiac Cath Procedure Full Procedure Date March 14, 2022 Pre-Procedure Diagnosis Pre-Procedure Diagnosis: Non STEMI AUC Score AUC Score: 8 Post-Procedure Diagnosis Post-Procedure Diagnosis: Severe CAD, Successful PCI and Normal Intracardiac Pressures Procedure(s) Performed Procedure(s) Performed: Coronary Angiography, Left Heart Cath, Drug Eluting Stent, Ultrasound Guided Vascular Access, Bypass Graft Angiography and Femoral Artery Angiography Biomass Plant Technician Ernesto Banks MD Securities Broker(s) Kevin Estimated Blood Loss Estimated Blood Loss: 15 Medication(s) Medication(s): Clopidogrel, Fentanyl, Heparin, Nicardipine, Nitroglycerin and Versed Summary of Findings Indication: NSTEMI, prior three-vessel CABG in 2007 Access: 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 JR4 guide Findings: LM -eccentric calcified distal 50 to 60% stenosis extending into ostial circumflex LAD -calcified, 100% ostial occlusion Circumflex -medium caliber vessel, 30% mid segment disease, OM1 occluded, small OM 2 with 80-90% proximal stenosis RCA -dominant, medium caliber, moderately calcified, 95% earlymid followed by diffuse calcified 70% mid disease, small RPDA with diffuse mid segment disease up to 90% SVG to first [id number]% proximal stenosis, small first diagonal without significant disease SVG to OMoccluded ROY to LADwidely patent, distal LAD without significant disease and wraps around apex, retrofills into mid LAD and second diagonal LVEDP -13 Arterial Closure: TR band Summary: 1. Acute 95% mid RCA stenosis 2. Chronic severe multivessel coronary artery disease 60% distal left main/ostial circumflex -Chronic 100% ostial LAD occlusion Chronic 100% ostial OM1 occlusion, 80-90% proximal small OM2 severe diffuse disease in small right PDA 3. Stable 80% proximal SVG to first diagonal. Patent ROY to LAD. Occluded SVG to OM 4. Normal intracardiac filling pressure 5. Successful PCI of mid RCA with 2 overlapping drug-eluting stents (3.0 x 30, 3.0 x 8 mm Hamzah drug-eluting stent; postdilated with 3.5 NC). Recommendations: To PCU for continued monitoring Loaded with additional clopidogrel 300 mg in Plasma Processing Centrifuge Operator Continue DAPT with aspirin, clopidogrel for at least 1 year Continued ASCVD risk factor modification Cardiac rehab If refractory exertional anginal symptoms in the future could consider PCI of protected distal left main into circumflex. Hemodynamics Rest Ao:: 159/71/104 Final Ao: 151/86/115 LV: 135/15 Recommendations Recommendations: PCI without planned CABG Specimens Specimens: None Radiation Exposure (mGy) 4577 Contrast (mls) 175 Anesthesia Moderate 7184-7540 Procedural Complication(s) None Disposition PCU I attest to the content of the Intraoperative Record and any orders documented therein. Any exceptions are noted below. UmamiG Card Cath Procedure Codes Cardiac Catheterization Procedure 1: Cardiovascular Cath Procedures: 94179 Coronaries & LHC (+/-LV) & Grafts/IM (arterial & venous) Therapeutic Services & Ancillary Proc Procedure 1: Cardiovascular Tx and Anc Procedures: 32765 Ultrasonic Guidance Vascular Access Moderate Sedation Procedure 1: Sedation/Anesthesia: 82886 Mod Sedation by the same physician;Init15 Min Child Age 5 & Up Procedure 2: Sedation/Anesthesia: 99370 Mod Sedation by the same physician; Ea [id number] Minutes Stenting Procedure 1: Cardiovascular Stent Procedures: 03160 Perc transcatheter placement of intracoronary stent(s), with ang PG Care Time/CCT Total # of Minutes Spent Total Time Spent with Patient: Total time spent is greater than 50% in coordination of care (as documented) at patient's floor/unit and/or counseling patient:
--- NOTE | 2022-03-14 16:20 | Hospitalist Progress Note ---
Date of Service March 14, 2022 Patient is a 76-year-old male with CAD s/p CABG, presented in hospital with chest pain, NSTEMI, was started on IV heparin on admission, and today underwent successful PCI with interventional Cardiology. Assessment & Plan Admission and Anticipated Discharge Date Admission Date: March 14, 2022 Results & Data Results & Data ([facility]) Vital Signs (Past 12 Hours) Vital Signs Temp Pulse Pulse Resp BP Pulse Ox 03/14/22 16:17 71 16 138/68 94 03/14/22 16:00 64 18 141/81 H 95 03/14/22 15:45 68 18 138/82 94 03/14/22 15:30 69 18 128/92 96 03/14/22 11:28 37.0 C 71 19 143/85 H 94 03/14/22 08:00 67 03/14/22 07:45 36.8 C 73 18 152/93 H 95
[2022-03-14] MEDS ORDERED: METOPROLOL SUCC 25MG EXT REL TAB PO SCH (21:00)
[2022-03-14] MEDS ORDERED: lisinopril 2.5 MG TAB PO SCH (21:00)
--- NOTE | 2022-03-15 07:54 | Cardiology Progress Note ---
Date of Service March 15, 2022 Assessment & Plan (1) NSTEMI (non-ST elevated myocardial infarction): (2) CAD (coronary artery disease): (3) History of coronary artery bypass graft: (4) Hyperlipidemia: (5) Statin intolerance: Plan: Medically complex 71-year-old male with history of coronary artery disease, status post CABG in 2007. 01/2020 ACS noted with thrombosis of the SVG to OM- patient was medically managed. x2-3 days of dull/burning chest discomfort that radiated to his back, relieved by Rolaids, but occurs post exertion. No other associated symptoms. EKG showed sinus rhythm with an inferior infarct, known. No acute ST segment changes Echocardiogram pending HS Troponin elevated 200>>400 Patient currently chest pain-free. 1. Continue IV heparin drip treatment of NSTEMI 2. Continue dual antiplatelet therapy with aspirin 81 mg daily and Plavix 75 mg daily 3. Continue goal-directed medical therapy with metoprolol and lisinopril. Hypertensive inpatient- normally well controlled outpatient, will not adjust medications at this time. Future consideration of increasing lisinopril. 4. Discussed the possible need for cardiac catheterization at a tertiary care center vs here at [facility]-we will discuss further with Dr. Pompa 5. Further recommendations pending echocardiogram review. Case discussed with Dr. Pompa, will follow. Admission and Anticipated Discharge Date Admission Date: March 14, 2022 Subjective Medically complex 71-year-old male with a history of coronary artery disease, status post CABG. He also has a history of ACS in January 2020 demonstrating an occluded/thrombosed SVG to OM. Medical management was advised at that time. Patient initially presented to the emergency department on 03/13 due to co mplaints of atypical chest pain described as indigestion-like and burning which radiated to his back. Symptoms have been ongoing for 2 to 3 days prior but was progressive. Patient has had past atypical symptoms with coronary presentations. Findings were consistent with an NSTEMI with crescendo angina and patient was started on a heparin gtt. He underwent catheterization with Dr. Banks yesterday, 03/14. Findings showed an acute 95% mid RCA stenosis and patient underwent successful PCI of the mid RCA with x2 PINA. Per Dr[address] Banks, "If refractory exertional anginal symptoms in the future could consider PCI of protected distal left main into circumflex". Chart and telemetry reviewed. Patient seen and examined at bedside. Upon entrance into the room patient resting comfortably in bed chest pain-free. Denies any missed doses of his medications. Echo: HS Troponin: 215>>242>>445 D-dimer elevated-->CT chest: No evidence of PE, no acute disease, coronary artery calcifications, small hiatal hernia Tele: SR 70-80s, PVCs Physical Exam Constitutional: WD/WN, vitals as above Eyes: PERRL, conjunctivae normal, anicteric sclerae ENMT: external ear and nose normal, oropharynx normal Neck: normal visual inspection Respiratory: normal respiratory effort, lungs clear to auscultation Cardiovascular: RRR, no murmur, no edema Heart Sounds: normal S1 and normal S2; no murmur Vessels: normal peripheral pulses; no JVD and no carotid bruit Extremities: + edema (trace RLE edema) Gastrointestinal (Abdomen): normal bowel sounds, soft, nontender, no hepatosplenomegaly Musculoskeletal: no cyanosis or clubbing, extremities motor strength 5/5 Skin: no rashes, warm and dry Neurologic: PERRL, EOMI, accommodation nl, no face palsy, no dysarthria Psychiatric: A+Ox3, euthymic affect Results & Data ([facility]) Vital Signs (Past 12 Hours) Vital Signs Temp Pulse Pulse Resp BP Pulse Ox 03/15/22 07:00 37.1 C 74 18 146/89 H 93 03/15/22 06:10 77 03/15/22 03:00 37.0 C 80 18 168/81 H 96 03/14/22 23:00 37.1 C 79 18 125/72 98 03/14/22 21:56 36.8 C 77 16 147/82 H 96 03/14/22 21:02 36.9 C 72 18 127/73 96 Diagnostic Findings Cardiac cath with Dr. Banks at [facility] 03/14/2022 1. Acute 95% mid RCA stenosis 2. Chronic severe multivessel coronary artery disease 60% distal left main/ostial circumflex -Chronic 100% ostial LAD occlusion Chronic 100% ostial OM1 occlusion, 80-90% proximal small OM2 severe diffuse disease in small right PDA 3. Stable 80% proximal SVG to first diagonal. Patent ROY to LAD. Occluded SVG to OM 4. Normal intracardiac filling pressure 5. Successful PCI of mid RCA with 2 overlapping drug-eluting stents (3.0 x 30, 3.0 x 8 mm Hamzah drug-eluting stent; postdilated with 3.5 NC). Recommendations: To PCU for continued monitoring Loaded with additional clopidogrel 300 mg in [place] Continue DAPT with aspirin, clopidogrel for at least 1 year Continued ASCVD risk factor modification Cardiac rehab (1) CAD (coronary artery disease) Associated angina: with unspecified angina Coronary Disease-Associated [place] ry/Lesion type: unspecified vessel or lesion type [place] vs. transplanted heart: unspecified whether [place] or transplanted heart Qualified Code(s): I25.119 - Atherosclerotic heart disease of [place] coronary artery with unspecified angina pectoris
[2022-03-15] MEDS: EZETIMIBE 10 MG TABLET PO SCH (08:49)
[2022-03-15] MEDS: CLOPIDOGREL BISULFATE 75 MG TAB PO SCH (08:49)
[2022-03-15] MEDS: MULTIVITAMIN TAB PO SCH (08:49)
[2022-03-15] MEDS: METOPROLOL SUCC 50MG EXT REL TAB PO SCH (08:49)
[2022-03-15] MEDS: ASPIRIN 81 MG ECTAB PO SCH (08:49)
--- NOTE | 2022-03-15 09:51 | Discharge Summary ---
Date of Service March 15, 2022 Admission HPI Per Admitting Provider This is a 71-year-old male with past medical history significant for hyperlipidemia, prediabetes, history of osteoarthritis, history of CAD, status post CABG, presents with chest pain. The patient states he was moving his water tank around 5-6 p.m., he noticed to have mid chest pain radiating to somewhere back about 5/10 in severity. No nausea, no dizziness, no headache. While coming to the hospital he was sweaty. He received aspirin in the ER. Currently, his chest pain is resolved, resting comfortably. Denies any blurred visions, no earache, no runny nose, no sore throat, no cough, no fever, no chills, no nausea, no abdominal pain, normal bowel and bladder movements. Otherwise, ambulates okay. Admission Exam Per Admitting Provider GENERAL: The patient is obese, not in acute distress. VITAL SIGNS: Temperature 35.6, pulse 66, respiratory rate 16, blood pressure 138/80, oxygen 97% on room air. HEENT: Pupils equal, round and reactive to light. Oral mucosa moist. NECK: No JVD or neck masses. CARDIOVASCULAR: S1 and S2 heard. Regular rate and rhythm. No murmur, no gallop. RESPIRATORY SYSTEM: Normal AP diameter. No accessory muscle use. No wheezing, no crackles. ABDOMEN: Soft. Bowel sounds are present, nontender, no distention. CENTRAL NERVOUS SYSTEM: Cranial nerves II through XII are grossly intact, nonfocal. EXTREMITIES: No edema, no erythema. Principal Diagnosis NSTEMI s/p stenting Discharge Exam General: Lying comfortably in bed, not in distress, on room air HEENT: EOMI, ELIZABETH, MMM Chest: Clear breath sounds bilaterally, no wheezes or crackles CVS: Regular rate and rhythm, normal heart sounds, no murmur Abdomen: Soft, non tender, not distended, normal bowel sounds Neuro: Awake, alert, oriented, conversing well, non focal Extremities: No cyanosis, clubbing or edema Discharge Data Allergies Allergy/AdvReac Type Severity Reaction Status Date / Time codeine Allergy Severe Tongue Verified 03/13/22 22:41 swells, has taken Vicodin w/o reaction Consultations 03/14/22 00:03 ED Decision to Admit Stat 03/14/22 08:00 Consult Cardiology Routine 03/14/22 16:19 Consult Cardiac Rehabilitation Routine Procedures Performed Operation Date: 03/14/22 13:00 Actual Procedures p Cath, Left w/Cors Vent Grafts - Teofilo Banks MD s Cineradiography w/Routine Exam - Teofilo Banks MD s Ultrasound Vascular Access - Teofilo Banks MD s Drug Eluting Stent SGl Vessel - Teofilo Banks MD s Placement Art Occlusive Device - Teofilo Banks MD Ordered Studies 03/13/22 22:46 CT angio chest PE protocol Urgent 03/14/22 13:19 CL Cath Imgs for PACS use only Routine Laboratory Results WBC 5.10 K/uL (4.8-10.8) 03/14/22 07:15 RBC 4.51 M/uL (4.7-6.1) L 03/14/22 07:15 Hgb 14.5 g/dL (14.0-18.0) 03/14/22 07:15 Hct 42.1 % (42-52) 03/14/22 07:15 MCV 93.3 fL (80-100) 03/14/22 07:15 MCH 32.2 pg (25-34) 03/14/22 07:15 MCHC 34.4 g/dL (32-36) 03/14/22 07:15 RDW Std Deviation 48.3 fL (36.4-46.3) H 03/14/22 07:15 RDW Coeff of Brittney 14.1 % (11.5-14.5) 03/14/22 07:15 Plt Count 196 K/uL (130-400) 03/14/22 07:15 MPV 9.2 fL (7.4-10.4) 03/14/22 07:15 Immature Gran % (Auto) 0.2 % 03/14/22 07:15 Neut % (Auto) 44.6 % 03/14/22 07:15 Lymph % (Auto) 42.7 % 03/14/22 07:15 [place] % (Auto) 8.6 % 03/14/22 07:15 Eos % (Auto) 3.7 % 03/14/22 07:15 Baso % (Auto) 0.2 % 03/14/22 07:15 Neut # (Auto) 2.27 K/uL (1.4-6.5) 03/14/22 07:15 Lymph # (Auto) 2.18 K/uL (1.2-3.4) 03/14/22 07:15 [place] # (Auto) 0.44 K/uL (0.11-0.59) 03/14/22 07:15 Eos # (Auto) 0.19 K/uL (0-0.5) 03/14/22 07:15 Baso # (Auto) 0.01 K/uL (0-0.2) 03/14/22 07:15 Immature Gran # (Auto) 0.01 K/uL (0.00-0.02) 03/14/22 07:15 PT 10.7 Seconds (9.0-12.0) 03/14/22 00:40 INR 1.0 (0.9-1.1) 03/14/22 00:40 APTT 54.4 Seconds (21.0-31.0) H* 03/14/22 07:15 PTT Ratio 2.0 03/14/22 07:15 Activ Coag Time Kaolin 277 SECONDS (94-140) H 03/14/22 14:46 D-Dimer 700 ug/L FEU (0-500) H* 03/13/22 21:34 Sodium 140 mmol/L (136-145) 03/14/22 07:15 Potassium 3.9 mmol/L (3.5-5.1) 03/14/22 07:15 Chloride 106 mmol/L (98-107) 03/14/22 07:15 Carbon Dioxide 27 mmol/L (21-32) 03/14/22 07:15 Anion Gap 7 (3-11) 03/14/22 07:15 BUN 15 mg/dl (6-23) 03/14/22 07:15 Creatinine 0.79 mg/dl (0.6-1.4) 03/14/22 07:15 Est Cr Clr Drug Dosing 112.3 ml/min 03/14/22 07:15 Est GFR ( Amer) 103.2 ml/min 03/14/22 07:15 Est GFR (Non-Af Amer) 89.1 ml/min 03/14/22 07:15 BUN/Creatinine Ratio 19.0 (10-20) 03/14/22 07:15 Glucose 104 mg/dl (70-99(Fasting)) H 03/14/22 07:15 Estimat Average Glucose 123 mg/dl 03/14/22 07:15 Hemoglobin A1c 5.9 % (4.5-5.6) H 03/14/22 07:15 Calcium 9.7 mg/dl (8.5-10.1) 03/14/22 07:15 Magnesium 1.9 mg/dl (1.7-2.4) 03/14/22 07:15 Total Bilirubin 0.6 mg/dl (0.2-1.0) 03/13/22 21:34 AST 22 U/L (13-39) 03/13/22 21:34 ALT 18 U/L (7-52) 03/13/22 21:34 Alkaline Phosphatase 77 U/L (34-104) 03/13/22 21:34 Troponin I High Sens 934.7 pg/ml (0-20) H* D 03/14/22 17:01 B-Natriuretic Peptide 97 pg/ml (0-100) 03/14/22 00:40 Total Protein 7.5 gm/dl (6.0-8.3) 03/13/22 21:34 Albumin 4.4 gm/dl (3.4-5.0) 03/13/22 21:34 Globulin 3.1 gm/dl (2.5-4.0) 03/13/22 21:34 Albumin/Globulin Ratio 1.4 (0.9-2) 03/13/22 21:34 Lipase 29 U/L (11-82) 03/13/22 21:34 SARS-CoV-2, RNA, NAAT NEGATIVE (NEGATIVE) 03/13/22 23:57 Impressions Chest X-Ray 03/13/22 22:02 XR chest 1V portable CLINICAL HISTORY: Atypical chest pain TECHNIQUE: Single frontal radiograph of the chest was obtained. Comparison: Comparison is made to chest radiograph 02/09/2020 FINDINGS: Median sternotomy wires are unchanged. The cardiomediastinal silhouette is normal. Lungs are underinflated but clear. No evidence of pleural effusion or pneumothorax. IMPRESSION: No acute chest disease. ACT 112: Negative or not required by law. Electronically signed by: Zhen Trevino M.D. 03/14/2022 7:22 AM Chest CTA 03/13/22 22:46 CT angio chest PE protocol CLINICAL HISTORY: Chest pain COMPARISON STUDY: Portable chest from 03/13/2022 CT DOSE: 809.33 mGy.cm TECHNIQUE: CT Angio of the chest was performed.followed by image post processing with coronal, and sagittal MIP reformats. Contrast Volume: Optiray 320, 110 ml FINDINGS: Vasculature: There is homogeneous perfusion of the pulmonary vasculature bilaterally. No intraluminal filling defects or evidence for pulmonary embolus is seen. Airway: The airway is clear. No endobronchial lesion is identified. Lungs: There is minimal breathing motion artifact present. The lungs are clear of acute alveolar opacities, air bronchograms or pulmonary nodules. Pleura: There is no evidence for pleural effusion. There is no evidence for pneumothorax. Mediastinum: There is no evidence for pathologic adenopathy. The heart size is within normal limits status post previous cardiothoracic surgery. Coronary artery calcification is present. The thoracic aorta is within normal limits. There is no evidence for pericardial effusion. Upper abdomen:The adrenal glands are normal bilaterally. There is small hiatal hernia. Osseous structures: There is no acute osseous pathology. Impression: 1. No CTA evidence for pulmonary embolus. 2. No acute chest disease. 3. Coronary artery calcification. 4. Small hiatal hernia. ACT 112: Negative or not required by law. Electronically signed by: Miguel Rinaldi M.D. 03/14/2022 7:31 AM Hospital Course (1) Non-ST elevation [place] (NSTEMI): 71 year old male who presented to the ED 03/14 with chest pain. Found to have NSTEMI and underwent cardiac cath and underwent successful PCI of mid RCA with 2 overlapping drug-eluting stents (3.0 x 30, 3.0 x 8 mm Hamzah drug-eluting stent; postdilated with 3.5 NC). Unevnentful overnight stay. No more chest pain. Seen by cardio and cleared for discharge. Continue DAPT, repatha, zetia. Follow up with cardio and cardiac rehab. If refractory exertional anginal symptoms in the future could consider PCI of protected distal left main into circumflex. He is comfortable and stable for discharge. Per cardiology notes: Findings: LM -eccentric calcified distal 50 to 60% stenosis extending into ostial circumflex LAD -calcified, 100% ostial occlusion Circumflex -medium caliber vessel, 30% mid segment disease, OM1 occluded, small OM 2 with 80-90% proximal stenosis RCA -dominant, medium caliber, moderately calcified, 95% earlymid followed by diffuse calcified 70% mid disease, small RPDA with diffuse mid segment disease up to 90% SVG to first [id number]% proximal stenosis, small first diagonal without signi ficant disease SVG to OMoccluded ROY to LADwidely patent, distal LAD without significant disease and wraps around apex, retrofills into mid LAD and second diagonal Summary: 1. Acute 95% mid RCA stenosis 2. Chronic severe multivessel coronary artery disease 60% distal left main/ostial circumflex -Chronic 100% ostial LAD occlusion Chronic 100% ostial OM1 occlusion, 80-90% proximal small OM2 severe diffuse disease in small right PDA 3. Stable 80% proximal SVG to first diagonal. Patent ROY to LAD. Occluded SVG to OM 4. Normal intracardiac filling pressure 5. Successful PCI of mid RCA with 2 overlapping drug-eluting stents (3.0 x 30, 3.0 x 8 mm [place] drug-eluting stent; postdilated with 3.5 NC). Total Time Total Time Spent Total Time Spent (In Minutes): 40 Discharge Plan Discharge Items Patient Disposition: Home - Self-Care Reason For Visit: CHEST PAIN Discharge Diagnosis: NSTEMI s/p PINA Condition on Discharge: Good Activity: Per Instructions section Non-emergency contact: Primary Care Provider and School Leader Call non-emergency contact if: you have any medication questions, your symptoms worsen and your pain is not controlled Follow-up/Referrals: Berhane Pompa MD [Physician] - (Date & Time 03/22/2022 3:30 PM Provider Berhane Pompa MD Department Cardiology, [facility] ) Khanh Noel MD [Primary Care Provider] - (Date & Time 03/20/2022 2:00 PM Provider Nuzhat Hyatt MD Department [facility] ) Diet: Heart Healthy Addtl Attending Provider Instructions: Continue aspirin plavix for at least one year Your lisinopril has been increased to 5 mg If you have recurrent chest pain, cardiology might further consider stenting of your other coronary artery Follow up with cardiology Addtl Director Outcomes Provider Instructions: ACTIVITY RECOMMENDATIONS: Excess manipulation of the wrist should be avoided for the next 24-48 hours. * No lifting over 2 pounds (approximately a 1/2 gallon of milk) with the utilized arm for 24 hours. * No strenuous activity such as bowling or tennis for 3 days. * Keep the site of the procedure covered with a bandage for 24 hours. *You may shower the day after the procedure. Do not take a tub bath or submerge the puncture site in water for the next 3 days. *Do not operate any motorized equipment for 3 days. SPECIAL CARE INSTRUCTIONS: The site may be slightly bruised and sore following your procedure. Should any of the following occur, contact the Dr. who performed your procedure. 1. Redness/inflammation, swelling, chills, or fever, or colored drainage at procedure site within 3-7 days after your procedure. 2. Coldness, discoloration, ongoing numbness, severe pain, or swelling. Expect mild tingling of hand and tenderness at the puncture site for up to three days. If this persists beyond three days, or other symptoms develop, notify the Dr. who performed your procedure. BLEEDING: If the procedure site on your wrist begins to bleed, do not panic 1. Place 1 or 2 fingers firmly just slightly above the insertion site to stop the bleeding. You may be able to feel your pulse as you hold pressure. 2. Lift your finger after 5 minutes to see if the bleeding has stopped. 3. Once the bleeding has stopped, gently wipe the wrist area clean with a bandage. * If the bleeding from your wrist does not stop after 10 minutes, or if there is a large amount of bleeding or spurting, call 911 (do not drive yourself to the hospital). SKIN IRRITATION: * You may experience some redness and/or swelling in the area where radiation was administered. If any skin irritation occurs, please contact your family physician. FOLLOW UP VISIT: Keep any scheduled doctor appointments. Pending Studies at Discharge: No Stand-Alone Forms: [employer], Smoking Cessation Medications and DC Order Prescriptions: Continued ezetimibe 10 mg tablet 10 mg PO QAM RF: 0 multivitamin Tablet 1 tab PO DAILY RF: 0 aspirin [Lynda Low Dose Aspirin] 81 mg Tablet,Delayed Release (Dr/Ec) 81 mg PO DAILY RF: 0 clopidogrel 75 mg Tablet 75 mg PO QAM 30 Days Qty: 30 RF: 3 nitroglycerin 0.4 mg Tablet, Sublingual 0.4 mg sublingual Q5M PRN (Reason: Chest Pain) Qty: 30 RF: 0 metoprolol succinate 50 mg tablet extended release 24 hr 25 mg PO QPM RF: 0 metoprolol succinate [Toprol XL] 50 mg tablet extended release 24 hr 50 mg PO QAM RF: 0 Repatha SureClick 140 mg/mL pen injector 0 mg SUBCUT .[id number] RF: 0 Changed lisinopril 2.5 mg tablet 5 mg PO QPM Qty: 0 RF: 0 Discharge Orders: Discharge Order (Routine); Ordered 03/15/22 Ordered By: Tony Dwyer/Other Patient Handouts: Coronary Stents, Having Cardiac Catheterization Admission Data Admit Date/Time: 03/14/22 01:21 Attending Provider: Tony Desai Admit Provider: Pierre Steward Primary Care Provider: Khanh Noel Other Providers: Pierre Steward ; Sher Adamson ; Pancho Frederick ; Berhane Pompa ; Ranjan Hewitt ; Robb Hatch ; Bran Ansari ; Oneyda Mendoza ; Susu Hebert ; Louisa Martinez ; Joel Jarrell Other Interventions: Discharge Summary Assessment (RN) Last Done: 03/15/22 10:21
--- NOTE | 2022-03-15 10:10 | Cardiology Progress Note ---
Date of Service March 15, 2022 Assessment & Plan (1) NSTEMI (non-ST elevated myocardial infarction): (2) CAD (coronary artery disease): (3) History of coronary artery bypass graft: (4) Hyperlipidemia: (5) Statin intolerance: Plan: Medically complex 71-year-old male with history of coronary artery disease, status post CABG in 2007. 01/2020 ACS noted with thrombosis of the SVG to OM- patient was medically managed. x2-3 days of dull/burning chest discomfort that radiated to his back, relieved by Rolaids, but occurs post exertion. No other associated symptoms. EKG showed sinus rhythm with an inferior infarct, known. No acute ST segment changes Patient underwent cardiac catheterization and coronary intervention of culprit lesion within the right coronary artery. Asymptomatic this morning. Plan: Discharge home after ambulation. Increase lisinopril to 5 mg pm otherwise same medication Follow-up cardiology 2 to 3 weeks time Will discuss cardiac rehab on return Admission and Anticipated Discharge Date Admission Date: March 14, 2022 Subjective Patient seen and examined, chart, medications, telemetry reviewed. Tolerated's coronary invention procedure very well yesterday with good result. No further chest pains or shortness of breath. Ambulatory in room. Right groin access healing well. Physical Exam Constitutional: WD/WN, vitals as above Eyes: PERRL, conjunctivae normal, anicteric sclerae Neck: normal visual inspection Respiratory: normal respiratory effort, lungs clear to auscultation Cardiovascular: RRR, no murmur, no edema Heart Sounds: normal S1 and normal S2; no murmur Vessels: normal peripheral pulses; no JVD and no carotid bruit Extremities: + edema (trace RLE edema) Gastrointestinal (Abdomen): normal bowel sounds, soft, nontender, no hepatosplenomegaly Musculoskeletal: no cyanosis or clubbing, extremities motor strength 5/5 Skin: no rashes, warm and dry Neurologic: PERRL, EOMI, accommodation nl, no face palsy, no dysarthria Psychiatric: A+Ox3, euthymic affect Results & Data ([facility]) Vital Signs (Past 12 Hours) Vital Signs Temp Pulse Pulse Resp BP Pulse Ox 03/15/22 08:00 74 03/15/22 07:00 37.1 C 74 18 146/89 H 93 03/15/22 06:10 77 03/15/22 03:00 37.0 C 80 18 168/81 H 96 03/14/22 23:00 37.1 C 79 18 125/72 98 (1) CAD (coronary artery disease) Associated angina: with unspecified angina Coronary Disease-Associated Artery/Lesion type: unspecified vessel or lesion type [place] vs. transplanted heart: unspecified whether [place] or transplanted heart Qualified Code(s): I25.119 - Atherosclerotic heart disease of [place] coronary artery with unspecified angina pectoris
--- NOTE | 2022-03-15 18:19 | Electrocardiogram Report ---
Test Reason : Blood Pressure : / mmHG Vent. Rate : 080 BPM Atrial Rate : 080 BPM P-R Int : 188 ms QRS Dur : 106 ms QT Int : 392 ms P-R-T Axes : 021 -16 -46 degrees QTc Int : 452 ms Normal sinus rhythm Inferior-posterior infarct , age undetermined Abnormal ECG When compared with ECG of 14-MAR-2022 08:43, Inferior-posterior infarct is now Present Confirmed by Ernesto Hood ([id number]) on 03/15/2022 6:19:12 PM Referred By: REFERRED SELF Confirmed By:Eugene Hood
[2022-03-15] MEDS ORDERED: lisinopril 5 MG TAB PO SCH (21:00)
== END 2022-03-15 11:11 | disposition home or self-care (01) | DRG 247 ==
LOC: ED 21:21 → SUATTDRO 03-14 01:21 → 2E 03-14 01:21

== ENCOUNTER 2022-04-18 18:19 | Inpatient (IN) ==
[2022-04-18] MEDS ORDERED: ASPIRIN 81 MG CHEW PO STA (19:20)
--- NOTE | 2022-04-18 19:24 | Emergency Department Note ---
History of Present Illness General Chief complaint: Chest Pain Stated complaint: COVID SYMPTOMS Time Seen by Provider: 04/18/22 19:04 Source: patient Mode of arrival: ambulatory Limitations: no limitations History of Present Illness Maximum Pain Intensity: 4 Patient is a 71-year-old male who has a history of a coronary artery disease with a recent WI/stenting, comes in after having a dull achy chest pain around 5:00 he was lifting a gas tank in the yard with a piece of equipment equipment. There is no trauma or injury. He said he felt like he had dull achiness indigestion and belching he felt generally weak all over no shortness of breath or pleurisy no nausea or vomiting he was somewhat diaphoretic although was hot outside. No abdominal pain. No blood or melena stool. He took 2 nitroglycerin and the pain is since resolved he feels good at present. He has stent recently done here by Dr. Banks looking through his cath report he had multivessel disease and the RCA was stented x2. Home Medications Medication Instructions Recorded Confirmed Type aspirin 81 mg tablet,delayed 81 mg PO DAILY 02/09/20 04/18/22 History release (Lynda Low Dose Aspirin) ezetimibe 10 mg tablet 10 mg PO QAM 02/09/20 04/18/22 History multivitamin 1 tab PO DAILY 02/09/20 04/18/22 History clopidogrel 75 mg tablet 75 mg PO QAM 30 days #30 tabs 02/10/20 04/18/22 Rx nitroglycerin 0.4 mg sublingual 0.4 mg sublingual Q5M PRN Chest 02/10/20 04/18/22 Rx tablet Pain #30 tabs evolocumab 140 mg/mL subcutaneous 140 mg subcut .[id number] 03/13/22 04/18/22 History pen injector (Sergio Leung) metoprolol succinate 50 mg 25 mg PO QPM 03/13/22 04/18/22 History tablet,extended release 24 hr metoprolol succinate 50 mg 50 mg PO QAM 03/13/22 04/18/22 History tablet,extended release 24 hr (Toprol XL) hydrochlorothiazide 25 mg tablet 12.5 mg PO UD 04/18/22 04/18/22 History lisinopril 5 mg tablet 5 mg PO QAM 04/18/22 04/18/22 History Allergies Allergy/AdvReac Type Severity Reaction Status Date / Time codeine Allergy Severe Tongue Verified 03/29/22 14:24 swells, has taken Vicodin w/o reaction Past Med/Surg History Medical History ASCVD (arteriosclerotic cardiovascular disease) CAD (coronary artery disease) History of nephrolithotomy with removal of calculi Hyperlipidemia Prediabetes Statin intolerance Surgical History History of coronary artery bypass graft 2007 @ [facility] [place] History of tonsillectomy S/P laser trabeculoplasty of eye Status post cystoscopy with ureteral stent placement Family History Mother Ovarian cancer Father Heart disease Social History Smoking Status: Never smoker Hx Alcohol Use: No Hx Substance Use: No Preferred Language: Yoruba 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 Ability: Effective Lathmaker Required: No Beliefs That Will Affect Care: None marital status: Current Living Situation: Spouse How many Children do You have: 2 Other Information That Helps Us Care for You: No Feels Safe at Home: Yes Safety Concerns: Feels Safe At This Time Assistive Devices: None Review of Systems A total of 10 systems reviewed and were otherwise negative Physical Exam Vital Signs Vital Signs - 24 hr 04/18/22 18:25 Temperature 36.6 C Temperature Source Temporal Artery Scan Pulse Rate 97 H Respiratory Rate 16 Respiratory Effort / Characteristics Non-Labored Spontaneous Respiratory Depth Normal Respiratory Pattern Regular Blood Pressure 145/90 H Blood Pressure Mean 108 Blood Pressure Position Sitting Pulse Oximetry 95 Oxygen Delivery Method Room Air Sepsis Recent Fever Within 48 Hours No Sepsis New/Unexplained Change in Mental Status No Sepsis Action Taken by Nursing No Action Required General: Well developed well nourished older male who appears asymptomatic and feeling much better but and appears in no acute distress, breathing comfortably on room air. Normal speech HEENT: Normal cephalic atraumatic. Pupils are equal round and reactive to light. Extraocular movements are intact. Oropharynx is pink with moist mucous membranes. No swelling of the mouth lips or tongue. Neck: Supple with a midline trachea. No meningeal signs or stiffness, no JVD or bruits. No Stridor. Chest: Clear to auscultation bilaterally. No wheezes or rhonchi. No increased work of breathing. Heart: Regular rate and rhythm without murmurs or gallops. Abdomen: Soft nontender, nondistended without rebound guarding or rigidity. Extremities: No cyanosis clubbing or edema. No calf tenderness or assymetry Spine/Back. Non tender to palpation. No CVA tenderness Skin: Good turgor without rashes. Neurologic exam: Cranial nerves two through 12 are intact. Motor and sensation are intact and symmetrical throughout. Procedures Free Text Procedures Start Time:184204/18/22 Reason: Patient with PMHx of CAD underwent ED Observation for Cehst pain. Fam Hx: CAD SocHx: See Below Summary: This patient comes in after an episode of chest pain he had a recent cath with a stent about a month ago and has multivessel disease. Although his pain has gone I am concerned with his risk factors. He was placed in ED observation for chest pain. He had 2 EKGs which did not show any significant ischemia. Initial troponin was mildly elevated at 40 however the second was doubled at 42.3 this is concerning and he will be admitted to the hospital for further treatment and evaluation and cardiac work-up and evaluation. Disposition: Admit to the hospital. 04/18/22 2200 Total Time: 3 hours and 17 minutes Course Administered Medications Aspirin (Aspirin 81 Mg Ectab) [facility] [place] Stop: 05/19/22 08:59 Last Admin: 04/19/22 08:28 Dose: 81 mg Documented By: Ezetimibe (Ezetimibe 10 Mg Tablet) [facility] [place] Stop: 05/19/22 08:59 Last Admin: 04/19/22 08:28 Dose: 10 mg Documented By: Lisinopril (Lisinopril 5 Mg Tab) 5 mg PO [facility] Stop: 05/18/22 21:59 Last Admin: 04/19/22 20:11 Dose: 5 mg Documented By: Admin: 04/18/22 23:29 Dose: 5 mg Documented By: LORRAINE Metoprolol Succinate (Metoprolol Succ 25mg Ext Rel Tab) 25 mg PO QPM [facility] Stop: 05/18/22 21:59 Last Admin: 04/19/22 20:12 Dose: 25 mg Documented By: Admin: 04/18/22 23:29 Dose: 25 mg Documented By: LORRAINE Metoprolol Succinate (Metoprolol Succ 50mg Ext Rel Tab) 50 mg PO QAM [facility] Stop: 05/19/22 08:59 Last Admin: 04/19/22 08:28 Dose: 50 mg Documented By: Multivitamins (Multivitamin Tab) 1 tab PO DAILY MATTHEW Stop: 05/19/22 08:59 Last Admin: 04/19/22 08:28 Dose: 1 tab Documented By: ENS Discontinued Medications Aspirin (Aspirin 81 Mg Chew) 324 mg PO NOW STA Stop: 04/18/22 19:21 Last Admin: 04/18/22 19:26 Dose: 324 mg Documented By: JEREMY Clopidogrel Bisulfate (Clopidogrel Bisulfate 75 Mg Tab) 75 mg PO QAM [facility] Stop: 04/19/22 15:42 Last Admin: 04/19/22 08:28 Dose: 75 mg Documented By: Fentanyl Citrate (Fentanyl Citrate 100 Mcg/2 Ml Vial) Confirm Administered Dose 100 mcg .ROUTE .STK-MED ONE Stop: 04/19/22 12:37 Last Admin: 04/19/22 14:31 Dose: 125 mcg Documented By: FABIAN Fentanyl Citrate (Fentanyl Citrate 100 Mcg/2 Ml Vial) Confirm Administered Dose 100 mcg .ROUTE .STK-MED ONE Stop: 04/19/22 13:59 Last Admin: 04/19/22 14:33 Dose: Not Given Documented By: FABIAN Heparin Sodium (Porcine) (Heparin Sod (Porcine) 1000 Unit/Ml) 8,000 units IV NOW ONE Stop: 04/18/22 22:15 Last Admin: 04/18/22 23:28 Dose: 8,000 units Documented By: LORRAINE Co-signed By: FAHEEM Heparin Sodium (Porcine) (Heparin (Porcine) 1000 Unit/Ml 10 Ml (Packaging Specialist Use Only)) Confirm Administered Dose 10,000 units .ROUTE .STK-MED ONE Stop: 04/19/22 12:37 Last Admin: 04/19/22 14:31 Dose: 10,000 units Documented By: FABIAN Heparin Sodium (Porcine) (Heparin (Porcine) 1000 Unit/Ml 10 Ml (Packaging Specialist Use Only)) Confirm Administered Dose 10,000 units .ROUTE .STK-MED ONE Stop: 04/19/22 13:27 Last Admin: 04/19/22 14:33 Dose: Not Given Documented By: FABIAN Heparin Sodium/Dextrose (Heparin Iv Adult Wt-Based Standard With Bolus Protocol) 1 each IV Q15M [facility]; Protocol Stop: 04/18/22 23:56 Last Admin: 04/18/22 22:29 Dose: Not Given Documented By: ARR Heparin Sodium/Sodium Chloride (Heparin In Nss Infusion 1000 Unit/500 Ml (2 U/Ml) Bag) Confirm Administered Dose 3,000 units IV .STK-MED ONE Stop: 04/19/22 12:38 Last Admin: 04/19/22 14:32 Dose: 3,000 units Documented By: LIZ Heparin Sodium/Dextrose (Heparin Sodium/Dextrose) 25,000 units in 500 mls @ 31 mls/hr IV .Q16H8M [facility]; Protocol Stop: 05/18/22 22:14 Last Titration: 04/19/22 15:46 Dose: 0 units/hr, 0 mls/hr Documented By: ENS Co-signed By: MAD Titration: 04/19/22 08:10 Dose: 1,550 units/hr, 31 mls/hr Documented By: ENS Co-signed By: AT Titration: 04/19/22 07:10 Dose: 0 units/hr, 0 mls/hr Documented By: ENS Co-signed By: ARR Titration: 04/19/22 07:04 Dose: 1,750 units/hr, 35 mls/hr Documented By: ENS Co-signed By: ARR Admin: 04/18/22 23:28 Dose: 1,750 units/hr, 35 mls/hr Documented By: ARR Co-signed By: CP Sodium Chloride (Nss 1000ml) 1,000 mls @ 1 mls/hr IV .Q24H [facility] Stop: 05/19/22 10:44 Last Admin: 04/19/22 15:46 Dose: Not Given Documented By: Midazolam HCl (Midazolam Hcl 1 Mg/Ml 2ml Vial) Confirm Administered Dose 2 mg .ROUTE .STK-MED ONE Stop: 04/19/22 12:38 Last Admin: 04/19/22 14:32 Dose: 3 mg Documented By: FABIAN Midazolam HCl (Midazolam Hcl 1 Mg/Ml 2ml Vial) Confirm Administered Dose 2 mg .ROUTE .STK-MED ONE Stop: 04/19/22 13:59 Last Admin: 04/19/22 14:33 Dose: Not Given Documented By: FABIAN Nicardipine HCl (Nicardipine Hcl Inj 2.5 Mg/Ml 10 Ml Amp) Confirm Administered Dose 25 mg .ROUTE .STK-MED ONE Stop: 04/19/22 12:37 Last Admin: 04/19/22 14:31 Dose: 25 mg Documented By: LIZ Nitroglycerin/Dextrose (Nitroglycerin/D5w 100mcg/Ml 20ml Syr) Confirm Admi nistered Dose 2,000 mcg .ROUTE .STK-MED ONE Stop: 04/19/22 12:39 Last Admin: 04/19/22 14:32 Dose: 2,000 mcg Documented By: LIZ Ticagrelor (Ticagrelor 90 Mg Tab) Confirm Administered Dose 180 mg .ROUTE .STK- MED ONE Stop: 04/19/22 14:09 Last Admin: 04/19/22 14:33 Dose: 180 mg Documented By: FABIAN Medical Decision Making Differential Diagnosis Acute coronary syndrome, arrhythmia, CHF, COVID, pneumothorax, electrolyte or metabolic abnormality Medical Records Attestation: I reviewed the patient's medical records. Home Medications Current Medication List: was personally reviewed by me Laboratory Data Attestation: I reviewed the patient's lab results. Result diagrams: 04/19/22 06:10 04/19/22 06:10 Lab Results 04/18/22 04/18/22 04/18/22 Range/Units 18:43 18:43 18:43 WBC 5.39 (4.8-10.8) K/ul RBC 4.45 L (4.63-6.08) M/uL Hgb 14.5 (14.0-18.0) g/dl Hct 43.4 (40.1-51.0) % MCV 97.5 (80.0-100.0) fL MCH 32.6 (25.0-34.0) pg MCHC 33.4 (32.0-36.0) g/dL RDW Std Deviation 50.4 H (36.4-46.3) fL RDW Coeff of Brittney 13.9 (11.5-14.5) % Plt Count 202 (130-400) K/uL MPV 9.0 L (9.4-12.4) fL Immature Gran % (Auto) 0.2 % Neut % (Auto) 55.4 % Lymph % (Auto) 33.2 % Lagrange % (Auto) 7.8 % Eos % (Auto) 3.0 % Baso % (Auto) 0.4 % Neut # (Auto) 2.99 (1.4-6.5) K/uL Lymph # (Auto) 1.79 (1.2-3.4) K/uL [place] # (Auto) 0.42 (0.24-0.82) K/uL Eos # (Auto) 0.16 (0-0.50) K/uL Baso # (Auto) 0.02 (0-0.2) K/uL Immature Gran # (Auto) 0.01 (0.00-0.02) K/uL PT 10.3 (9.0-12.0) Seconds INR 1.0 (0.9-1.1) APTT 24.9 (21.0-31.0) Seconds PTT Ratio 0.9 Sodium 140 (136-145) mmol/L Potassium 4.1 (3.5-5.1) mmol/L Chloride 108 H (98-107) mmol/L Carbon Dioxide 24 (21-32) mmol/L Anion Gap 8 (3-11) BUN 23 (6-23) mg/dl Creatinine 0.91 (0.6-1.4) mg/dl Est Cr Clr Drug Dosing 98.2 ml/min Est GFR ( Amer) 96.6 ml/min Est GFR (Non-Af Amer) 83.3 ml/min BUN/Creatinine Ratio 25.3 H (10-20) Glucose 111 H (70-99(Fasting)) mg/dl Calcium 9.3 (8.5-10.1) mg/dl Total Bilirubin 0.4 (0.2-1.0) mg/dl AST 17 (13-39) U/L ALT 20 (7-52) U/L Alkaline Phosphatase 72 (34-104) U/L Troponin I High Sens 20.6 H D (0-20) pg/ml Total Protein 7.2 (6.0-8.3) gm/dl Albumin 4.1 (3.4-5.0) gm/dl Globulin 3.1 (2.5-4.0) gm/dl Albumin/Globulin Ratio 1.3 (0.9-2) Triglycerides (0-150) mg/dl Cholesterol (0-200) mg/dl LDL Cholesterol, Calc VLDL Cholesterol, Calc HDL Cholesterol mg/dl Cholesterol/HDL Ratio (0-5) Lipase 32 (11-82) U/L SARS-CoV-2, RNA, NAAT (NEGATIVE) 04/18/22 04/18/22 04/18/22 Range/Units 19:30 20:30 20:30 WBC (4.8-10.8) K/ul RBC (4.63-6.08) M/uL Hgb (14.0-18.0) g/dl Hct (40.1-51.0) % MCV (80.0-100.0) fL MCH (25.0-34.0) pg MCHC (32.0-36.0) g/dL RDW Std Deviation (36.4-46.3) fL RDW Coeff of Brittney (11.5-14.5) % Plt Count (130-400) K/uL MPV (9.4-12.4) fL Immature Gran % (Auto) % Neut % (Auto) % Lymph % (Auto) % Lagrange % (Auto) % Eos % (Auto) % Baso % (Auto) % Neut # (Auto) (1.4-6.5) K/uL Lymph # (Auto) (1.2-3.4) K/uL Lagrange # (Auto) (0.24-0.82) K/uL Eos # (Auto) (0-0.50) K/uL Baso # (Auto) (0-0.2) K/uL Immature Gran # (Auto) (0.00-0.02) K/uL PT (9.0-12.0) Seconds INR (0.9-1.1) APTT (21.0-31.0) Seconds PTT Ratio Sodium (136-145) mmol/L Potassium (3.5-5.1) mmol/L Chloride (98-107) mmol/L Carbon Dioxide (21-32) mmol/L Anion Gap (3-11) BUN (6-23) mg/dl Creatinine (0.6-1.4) mg/dl Est Cr Clr Drug Dosing ml/min Est GFR ( Amer) ml/min Est GFR (Non-Af Amer) ml/min BUN/Creatinine Ratio (10-20) Glucose (70-99(Fasting)) mg/dl Calcium (8.5-10.1) mg/dl Total Bilirubin (0.2-1.0) mg/dl AST (13-39) U/L ALT (7-52) U/L Alkaline Phosphatase (34-104) U/L Troponin I High Sens 42.3 H D (0-20) pg/ml Total Protein (6.0-8.3) gm/dl Albumin (3.4-5.0) gm/dl Globulin (2.5-4.0) gm/dl Albumin/Globulin Ratio (0.9-2) Triglycerides 416 H (0-150) mg/dl Cholesterol 119 (0-200) mg/dl LDL Cholesterol, Calc TNP VLDL Cholesterol, Calc TNP HDL Cholesterol 38 mg/dl Cholesterol/HDL Ratio 3.1 (0-5) Lipase (11-82) U/L SARS-CoV-2, RNA, NAAT NEGATIVE (NEGATIVE) Imaging Data Attestation: I personally reviewed and interpreted this imaging study as follows: My Impression: Chest x-ray-no acute infiltrate, failure, pneumothorax seen ECG Data Attestation: I personally reviewed and interpreted this ECG as follows: Indication: + chest pain and + weakness Rate (beats per minute): 91 Rhythm: + normal sinus ECG Intervals/blocks: + Normal QRS, + Normal QT and + Normal MD ECG Frederick: + Normal ECG ST segments: + Nonspecific ST abnormalities ECG Findings: + Q waves (Inferior) and + Other (T wave flattening inferiorly) Comparison ECG Date: from (03/15/22) Change: no significant change Additional Comments: EG #2: Normal sinus rhythm with a rate of 87 no acute ischemic changes or ectopy. No significant change compared to EKG #1. PVCs are now resolved MDM Narrative This patient comes in as described above he was placed on a playground monitor in room a 11. He is here for treatment and evaluation of chest pain. He took 2 nitroglycerin feeling better he does take a baby aspirin as well as Plavix I did order additional adult strength aspirin 325 mg. Chest x-ray, EKG, and multiple blood testing was obtained I reviewed his previous visit he had multivessel disease on his cath a month ago. His EKG was negative he was observed in the ED a second EKG was also unremarkable. He had initial troponin which was mildly elevated at 20. Other the patient was feeling better and was asymptomatic his troponin done about 2 hours after that was 42. Reviewed his cath report he does have multivessel disease I am concerned he could have an issue with the stent or one of the other vessels. He is comfortable at present but I do think needs to come in for further treatment evaluation of consulted Dr. Bynum to see him in ER for these measures. Continuous cardiac monitoring: Orders placed in EMR for continuous cardiac monitoring, upon my interpretation the patient was noted to be in normal sinus rhythm with a rate of 95. Impression & Plan Chest pain due to CAD, ASCVD (arteriosclerotic cardiovascular disease), Lab test negative for COVID-19 virus, Elevated troponin I level Discharge Plan Visit Data Chief Complaint: Chest Pain Stated Complaint: COVID SYMPTOMS ED Provider: Leon Lauren Discharge Problem: Chest pain due to CAD, ASCVD (arteriosclerotic cardiovascular disease), Lab test negative for COVID-19 virus, Elevated troponin I level Patient Disposition: Admitted As Inpatient Discharge Instructions Interventions: ED Discharge Assessment Last Done: 04/18/22 21:00
[2022-04-18 19:44] LABS: Basophils # (auto) 0.02 K/uL (0-0.2); Basophils % (auto) 0.4 %; Eosinophils # (auto) 0.16 K/uL (0-0.50); Hematocrit (blood only) 43.4 % (40.1-51.0); Hemoglobin 14.5 g/dl (14.0-18.0); Immature Granulocytes # (auto) 0.01 K/uL (0.00-0.02); Immature Granulocytes % (auto) 0.2 %; Lymphocytes # (auto) 1.79 K/uL (1.2-3.4); Lymphocytes % (auto) 33.2 %; Mean Corpuscular Hemoglobin 32.6 pg (25.0-34.0); Mean Corpuscular Hgb Conc 33.4 g/dL (32.0-36.0); Mean Corpuscular Volume 97.5 fL (80.0-100.0); Monocytes # (auto) 0.42 K/uL (0.24-0.82); Monocytes % (auto) 7.8 %; Neutrophils # (auto) 2.99 K/uL (1.4-6.5); Neutrophils % (auto) 55.4 %; Platelet Count 202 K/uL (130-400); RDW Coefficient of Variation 13.9 % (11.5-14.5); RDW Standard Deviation 50.4 fL (36.4-46.3); Red Blood Count 4.45 M/uL (4.63-6.08); White Blood Count 5.39 K/ul (4.8-10.8)
[2022-04-18 19:57] LABS: Partial Thromboplastin Ratio 0.9; Partial Thromboplastin Time 24.9 Seconds (21.0-31.0); Prothrombin Time 10.3 Seconds (9.0-12.0)
[2022-04-18 20:10] LABS: Troponin I High Sensitivity 20.6 pg/ml (0-20)
[2022-04-18 20:17] LABS: Albumin Globulin Ratio 1.3 (0.9-2); Albumin Level 4.1 gm/dl (3.4-5.0); BUN Creatinine Ratio 25.3 (10-20); Bilirubin,Total 0.4 mg/dl (0.2-1.0); Calcium 9.3 mg/dl (8.5-10.1); Creatinine Clr Calc Pharmacy 98.2 ml/min; Est GFR (African American) 96.6 ml/min; Est GFR (Non-African American) 83.3 ml/min; Globulin 3.1 gm/dl (2.5-4.0); Potassium 4.1 mmol/L (3.5-5.1); Total Protein 7.2 gm/dl (6.0-8.3)
--- NOTE | 2022-04-18 20:20 | XRay Report ---
SINGLE VIEW CHEST CLINICAL HISTORY: Atypical chest pain. FINDINGS: An AP, portable, upright chest radiograph is compared to chest x-ray and chest CT dated 02/28. The examination is degraded by portable technique and apical lordotic positioning. The patien t is status post midline sternotomy. The heart is enlarged noting atherosclerotic calcification of th e thoracic aorta. The pulmonary vasculature is noncongested. Chronic interstitial thickening is simil ar to previous. There is bibasilar scarring/atelectasis. The lungs and pleural spaces are clear. No p neumothorax is seen. The skeletal structures are osteopenic. The bony thorax is grossly intact. IMPRESSION: Cardiomegaly with no active disease in the chest. ACT 112: Negative or not required by law. Electronically signed by: Ernst Warren M.D. 04/18/2022 8:19 PM
--- NOTE | 2022-04-18 20:35 | History & Physical Report ---
Date of Service April 18, 2022 Assessment & Plan (1) Non-ST elevation [place] (NSTEMI): Plan: Patient is exhibiting increased frequency of index angina. Troponin is elevated and he is having intermittent symptoms. Will continue dual antiplatelet therapy with aspirin and Plavix, continue Toprol and Zetia and add heparin at this time. Consult cardiology for additional recommendations. (2) Statin intolerance: Plan: Continue Zetia (3) ASCVD (arteriosclerotic cardiovascular disease): Plan: Chronic, continue home regimen. Plan as above. (4) Hyperlipidemia: Plan: Hypertriglyceridemia noted on labs. May need to repeat this fasting. Patient has known statin intolerance, continue Zetia and Repatha as outpatient. (5) History of coronary artery bypass graft: (6) DVT prophylaxis: Plan: Heparin drip Full code Disposition-[facility] History of Present Illness Chief Complaint: chest pain Primary Care Provider: Khanh Noel MD 71-year-old man with history of coronary artery disease status post CABG in 2007 was recently admitted for an NSTEMI. He underwent cardiac catheterization and coronary intervention of culprit lesion within the right coronary artery on 03/14. He was discharged home in stable condition with Dr. Banks. Since that time he has been doing well without anginal symptoms. However, this morning he developed a dull achy chest pain while he was lifting a gas tank in his yard wi th a piece of equipment. He had no trauma or injury. He felt belching and continues to feel an indigestion that he describes as a dullness. It is centrally located and is consistent with his index angina. He then reported that that same discomfort was present 3 days ago. He denies any shortness of breath. He took 2 nitroglycerin at home and the pain resolved. Although he remains pain-free he still feels some belching present. His troponin is elevated at 20.6 with repeat 2 hours later 42.3. His EKG is unchanged from prior. Allergies Allergy/AdvReac Type Severity Reaction Status Date / Time codeine Allergy Severe Tongue Verified 03/29/22 14:24 swells, has taken Vicodin w/o reaction Home Medications Medication Instructions Recorded Confirmed Type aspirin 81 mg tablet,delayed 81 mg PO DAILY 02/09/20 04/18/22 History release (Lynda Low Dose Aspirin) ezetimibe 10 mg tablet 10 mg PO QAM 02/09/20 04/18/22 History multivitamin 1 tab PO DAILY 02/09/20 04/18/22 History clopidogrel 75 mg tablet 75 mg PO QAM 30 days #30 tabs 02/10/20 04/18/22 Rx nitroglycerin 0.4 mg sublingual 0.4 mg sublingual Q5M PRN Chest 02/10/20 04/18/22 Rx tablet Pain #30 tabs evolocumab 140 mg/mL subcutaneous 140 mg subcut .[id number] 03/13/22 04/18/22 History pen injector (Sergio Leung) metoprolol succinate 50 mg 25 mg PO QPM 03/13/22 04/18/22 History tablet,extended release 24 hr metoprolol succinate 50 mg 50 mg PO QAM 03/13/22 04/18/22 History tablet,extended release 24 hr (Toprol XL) hydrochlorothiazide 25 mg tablet 12.5 mg PO UD 04/18/22 04/18/22 History lisinopril 5 mg tablet 5 mg PO QAM 04/18/22 04/18/22 History Past Med/Surg History Medical History ASCVD (arteriosclerotic cardiovascular disease) CAD (coronary artery disease) History of nephrolithotomy with removal of calculi Hyperlipidemia Prediabetes Statin intolerance Surgical History History of coronary artery bypass graft 2007 @ [facility] [place] History of tonsillectomy S/P laser trabeculoplasty of eye Status post cystoscopy with ureteral stent placement Family History Mother Ovarian cancer Father Heart disease Social History Smoking Status: Never smoker Hx Alcohol Use: No Hx Substance Use: No Preferred Language: Faroese 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 Ability: Effective Bait Tier Required: No Beliefs That Will Affect Care: None marital status: Current Living Situation: Spouse Other Information That Helps Us Care for You: No Feels Safe at Home: Yes Safety Concerns: Feels Safe At This Time Assistive Devices: Glasses Review of Systems Review of Systems: All systems were reviewed and negative except as indicated above Physical Exam Physical Exam: CONSTITUTIONAL: WNWD, vitals as above, generally well- appearing, NAD EYES: normal conjunctivae, no scleral icterus ENT: external ear and nose normal, MMM NECK: trachea midline RESPIRATORY: clear to auscultation bilaterally, no crackles, rales or wheezes, normal respiratory effort CARDIOVASCULAR: regular rate and rhythm, S1 and 2 heard without murmurs, gallops or rubs, no JVD, no peripheral edema CHEST: inspection of chest was normal GASTROINTESTINAL: soft, nontender, ND, no guarding MUSCULOSKELETAL: strength 5/5 throughout, head is normocephalic and atraumatic SKIN: warm and dry NEUROLOGIC: CN 2-12 grossly intact, no sensory deficit, normal cognition, normal speech, no tremor PSYCHIATRIC: alert cooperative and oriented to person, place and time. Euthymic mood, makes good eye contact, language grossly intact, recent and remote memory grossly intact. Results & Data Results & Data ([facility]) Vital Signs (Past 12 Hours) Vital Signs Temp Pulse Pulse Resp BP BP Pulse Ox 04/18/22 20:06 85 20 106/71 95 04/18/22 18:25 36.6 C 97 H 16 145/90 H 95 O2 Del Method 04/18/22 20:06 Room Air 04/18/22 18:25 Room Air Laboratory Results Short CBC 04/18/22 Range/Units 18:43 WBC 5.39 (4.8-10.8) K/ul Hgb 14.5 (14.0-18.0) g/dl Hct 43.4 (40.1-51.0) % Plt Count 202 (130-400) K/uL BMP 04/18/22 18:43 Sodium 140 Potassium 4.1 Chloride 108 H Carbon Dioxide 24 BUN 23 Creatinine 0.91 Glucose 111 H Calcium 9.3 Liver Function 04/18/22 Range/Units 18:43 Total Bilirubin 0.4 (0.2-1.0) mg/dl AST 17 (13-39) U/L ALT 20 (7-52) U/L Alkaline Phosphatase 72 (34-104) U/L Albumin 4.1 (3.4-5.0) gm/dl Diagnostic Findings Chest X-Ray 04/18/22 19:19 SINGLE VIEW CHEST CLINICAL HISTORY: Atypical chest pain. FINDINGS: An AP, portable, upright chest radiograph is compared to chest x-ray and chest CT dated 03/13/2022. The examination is degraded by portable technique and apical lordotic positioning. The patient is status post midline sternotomy. The heart is enlarged noting atherosclerotic calcification of the thoracic aorta. The pulmonary vasculature is noncongested. Chronic interstitial thickening is similar to previous. There is bibasilar scarring/atelectasis. The lungs and pleural spaces are clear. No pneumothorax is seen. The skeletal structures are osteopenic. The bony thorax is grossly intact. IMPRESSION: Cardiomegaly with no active disease in the chest. ACT 112: Negative or not required by law. Electronically signed by: Ernst Warren M.D. 04/18/2022 8:19 PM
[2022-04-18] MEDS ORDERED: ACETAMINOPHEN 325 MG TAB PO PRN (21:18)
[2022-04-18] MEDS ORDERED: NITROGLYCERIN SL 0.4 MG/TAB TAB SL PRN (21:18)
[2022-04-18] MEDS ORDERED: MoRPHine SULFATE 2 MG/ML CARP IV PRN (21:18)
[2022-04-18] MEDS ORDERED: POLYETHYLENE (MIRALAX) 17 GM PACK PO PRN (21:18)
[2022-04-18 22:00] LABS: Cholesterol 119 mg/dl (0-200); HDL Cholesterol 38 mg/dl; Triglycerides 416 mg/dl (0-150)
[2022-04-18] MEDS ORDERED: Heparin IV Adult Wt-Based Standard WITH Bolus Protocol IV SCH (22:10)
[2022-04-18] MEDS ORDERED: HEPARIN SOD (PORCINE) 1000 UNIT/ML IV ONE (22:14)
[2022-04-18] MEDS ORDERED: HEPARIN SODIUM/DEXTROSE 25,000 UNITS/500 ML BAG IV SCH (22:15)
[2022-04-18 22:20] LABS: Chol HDL Ratio 3.1 (0-5)
[2022-04-18] MEDS: METOPROLOL SUCC 25MG EXT REL TAB PO SCH (23:29)
[2022-04-18] MEDS: lisinopril 5 MG TAB PO SCH (23:29)
[2022-04-19 06:29] LABS: Hematocrit (blood only) 42.3 % (40.1-51.0); Hemoglobin 14.4 g/dl (14.0-18.0); Platelet Count 180 K/uL (130-400); RDW Coefficient of Variation 13.9 % (11.5-14.5); RDW Standard Deviation 50.2 fL (36.4-46.3); Red Blood Count 4.36 M/uL (4.63-6.08); White Blood Count 5.07 K/ul (4.8-10.8)
[2022-04-19 06:55] LABS: BUN Creatinine Ratio 22.5 (10-20); Calcium 9.1 mg/dl (8.5-10.1); Creatinine Clr Calc Pharmacy 111.4 ml/min; Est GFR (African American) 102.7 ml/min; Est GFR (Non-African American) 88.6 ml/min; Potassium 4.2 mmol/L (3.5-5.1)
[2022-04-19 07:01] LABS: Partial Thromboplastin Ratio 3.5
[2022-04-19 07:09] LABS: Partial Thromboplastin Time 95.2 Seconds (21.0-31.0)
[2022-04-19] MEDS: ASPIRIN 81 MG ECTAB PO SCH (08:28)
[2022-04-19] MEDS: EZETIMIBE 10 MG TABLET PO SCH (08:28)
[2022-04-19] MEDS: METOPROLOL SUCC 50MG EXT REL TAB PO SCH (08:28)
[2022-04-19] MEDS: MULTIVITAMIN TAB PO SCH (08:28)
[2022-04-19] MEDS ORDERED: CLOPIDOGREL BISULFATE 75 MG TAB PO SCH (09:00)
[2022-04-19] MEDS ORDERED: SODIUM CHLORIDE 0.9% 1000ML 1,000 ML IV SCH (10:45)
--- NOTE | 2022-04-19 11:13 | Cardiology Consultation ---
Date of Consultation April 19, 2022 Assessment & Plan (1) Unstable angina pectoris: (2) CAD (coronary artery disease): (3) Hyperlipidemia: (4) Statin intolerance: Plan Patient is a 71-year-old male with known coronary disease as well outlined in HPI. Recent coronary intervention in February 2022 with residual disease ostial circumflex noted. Patient presents with concerning symptoms consistent with prior angina (atypical) with mildly elevated troponin. Symptoms were relieved by sublingual nitroglycerin Discussed in detail with patient Will refer for diagnostic coronary angiography reassess prior anatomy and possibly intervene on circumflex lesion depending on angiogram findings Patient agreeable. History of Present Illness Reason for Consultation: Chest pressure pain, elevated troponin Requesting Physician: Tony Desai, Attending Physician: Tony Desai MD History of Present Illness Patient is a 71-year-old male with ongoing issues 1.Atherosclerotic coronary disease, status post coronary bypass grafting after [id number] elevation myocardial infarction in 2007, receiving a ROY graft to the LAD, a saphenous vein graft to the diagonal, a saphenous vein graft to an obtuse marginal. 2.Hyperlipidemia. 3.Moderate obesity, 4. Statin intolerance with multiple trials including simvastatin, atorvastatin, rosuvastatin low-dose now on Repatha 5. Late presentation with acute coronary syndrome February 09, 2020 cardiac catheterization demonstrating occluded/thrombosed saphenous vein graft to the obtuse marginal 6. Non ST segment elevation myocardial infarction March 13, 2022 with culprit lesion mid right coronary artery stenosis treated with drug-eluting stent. Residual 60% ostial circumflex distal LM Patient presents today noting having been doing relatively well until earlier this week when he had experienced an episode of severe indigestion heartburn complaints after exertion. Patient treated with antacids yesterday while working outside in warm weather developed similar indigestion though with asso ciated chest pressure rating across anterior precordium lasting greater than 1 hour. He sought rest inside but continued to have symptoms consistent with patient's prior angina and was urged to seek ER evaluation by . Symptoms were relieved by 2 sublingual nitroglycerin at home. Initial EKG is unchanged however troponins are elevated and christoph on second test. Patient appropriately anticoagulated with heparin He denies recent fevers chills or infections. Has been compliant with medications. No bleeding difficulties. Allergies Allergy/AdvReac Type Severity Reaction Status Date / Time codeine Allergy Severe Tongue Verified 03/29/22 14:24 swells, has taken Vicodin w/o reaction Home Medications Medication Instructions Recorded Confirmed Type aspirin 81 mg tablet,delayed 81 mg PO DAILY 02/09/20 04/18/22 History release (Lynda Low Dose Aspirin) ezetimibe 10 mg tablet 10 mg PO QAM 02/09/20 04/18/22 History multivitamin 1 tab PO DAILY 02/09/20 04/18/22 History clopidogrel 75 mg tablet 75 mg PO QAM 30 days #30 tabs 02/10/20 04/18/22 Rx nitroglycerin 0.4 mg sublingual 0.4 mg sublingual Q5M PRN Chest 02/10/20 04/18/22 Rx tablet Pain #30 tabs evolocumab 140 mg/mL subcutaneous 140 mg subcut .[id number] 03/13/22 04/18/22 History pen injector (Sergio Leung) metoprolol succinate 50 mg 25 mg PO QPM 03/13/22 04/18/22 History tablet,extended release 24 hr metoprolol succinate 50 mg 50 mg PO QAM 03/13/22 04/18/22 History tablet,extended release 24 hr (Toprol XL) hydrochlorothiazide 25 mg tablet 12.5 mg PO UD 04/18/22 04/18/22 History lisinopril 5 mg tablet 5 mg PO QAM 04/18/22 04/18/22 History Patient History Medical History ASCVD (arteriosclerotic cardiovascular disease) CAD (coronary artery disease) History of nephrolithotomy with removal of calculi Hyperlipidemia Prediabetes Statin intolerance Surgical History [place] of [place] [facility] [place] of tonsillectomy S/P laser trabeculoplasty of eye Status post cystoscopy with ureteral stent placement Family History Mother Ovarian cancer Father Heart disease Social History Smoking Status: Never smoker Hx Alcohol Use: No Hx Substance Use: No Preferred Language: Latvian 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 Ability: Effective Range Manager Required: No Beliefs That Will Affect Care: None marital status: Current Living Situation: Spouse How many Children do You have: 2 Other Information That Helps Us Care for You: No Feels Safe at Home: Yes Safety Concerns: Feels Safe At This Time Assistive Devices: None Review of Systems Review of Systems: All systems reviewed & are unremarkable except as noted in HPI & below Physical Exam Constitutional: WD/WN, vitals as above Eyes: PERRL, conjunctivae normal, anicteric sclerae ENMT: external ear and nose normal, oropharynx normal Neck: trachea midline, no thyromegaly Respiratory: normal respiratory effort, lungs clear to auscultation Cardiovascular: Rate/Rhythm: regular rate and regular rhythm Heart Sounds: normal S1 and normal S2; no gallop and no murmur Palpation: normal PMI Vessels: normal carotid upstroke and radial pulses present; no JVD and no carotid bruit Extremities: no edema Gastrointestinal (Abdomen): normal bowel sounds, soft, nontender, no hepatosplenomegaly Musculoskeletal: no cyanosis or clubbing, extremities motor strength 5/5 Skin: no rashes, warm and dry Neurologic: PERRL, EOMI, accommodation nl, no face palsy, no dysarthria Psychiatric: A+Ox3, euthymic affect Results & Data ([facility]) Vital Signs (Past 12 Hours) Vital Signs Temp Pulse Pulse Resp BP Pulse Ox O2 Del Method 04/19/22 07:54 36.7 C 78 18 144/85 H 95 Room Air 04/19/22 07:29 83 04/19/22 03:42 36.8 C 76 18 115/72 97 Room Air 04/18/22 23:47 36.7 C 78 14 106/68 96 Room Air 04/19/22 00:10 81 Laboratory Results Laboratory Results - last 24 hr 04/18/22 04/18/22 04/18/22 18:43 18:43 18:43 WBC 5.39 RBC 4.45 L Hgb 14.5 Hct 43.4 MCV 97.5 MCH 32.6 MCHC 33.4 RDW Std Deviation 50.4 H RDW Coeff of Brittney 13.9 Plt Count 202 MPV 9.0 L Immature Gran % (Auto) 0.2 Neut % (Auto) 55.4 Lymph % (Auto) 33.2 Monroe % (Auto) 7.8 Eos % (Auto) 3.0 Baso % (Auto) 0.4 Neut # (Auto) 2.99 Lymph # (Auto) 1.79 Monroe # (Auto) 0.42 Eos # (Auto) 0.16 Baso # (Auto) 0.02 Immature Gran # (Auto) 0.01 PT 10.3 INR 1.0 APTT 24.9 PTT Ratio 0.9 Sodium 140 Potassium 4.1 Chloride 108 H Carbon Dioxide 24 Anion Gap 8 BUN 23 Creatinine 0.91 Est Cr Clr Drug Dosing 98.2 Est GFR ( Amer) 96.6 Est GFR (Non-Af Amer) 83.3 BUN/Creatinine Ratio 25.3 H Glucose 111 H Calcium 9.3 Total Bilirubin 0.4 AST 17 ALT 20 Alkaline Phosphatase 72 Troponin I High Sens 20.6 H D Total Protein 7.2 Albumin 4.1 Globulin 3.1 Albumin/Globulin Ratio 1.3 Triglycerides Cholesterol LDL Cholesterol, Calc VLDL Cholesterol, Calc HDL Cholesterol Cholesterol/HDL Ratio Lipase 32 SARS-CoV-2, RNA, NAAT 04/18/22 04/18/22 04/18/22 19:30 20:30 20:30 WBC RBC Hgb Hct MCV MCH MCHC RDW Std Deviation RDW Coeff of Brittney Plt Count MPV Immature Gran % (Auto) Neut % (Auto) Lymph % (Auto) Monroe % (Auto) Eos % (Auto) Baso % (Auto) Neut # (Auto) Lymph # (Auto) Monroe # (Auto) Eos # (Auto) Baso # (Auto) Immature Gran # (Auto) PT INR APTT PTT Ratio Sodium Potassium Chloride Carbon Dioxide Anion Gap BUN Creatinine Est Cr Clr Drug Dosing Est GFR ( Amer) Est GFR (Non-Af Amer) BUN/Creatinine Ratio Glucose Calcium Total Bilirubin AST ALT Alkaline Phosphatase Troponin I High Sens 42.3 H D Total Protein Albumin Globulin Albumin/Globulin Ratio Triglycerides 416 H Cholesterol 119 LDL Cholesterol, Calc TNP VLDL Cholesterol, Calc TNP HDL Cholesterol 38 Cholesterol/HDL Ratio 3.1 Lipase SARS-CoV-2, RNA, NAAT NEGATIVE 04/19/22 04/19/22 04/19/22 06:10 06:10 06:10 WBC 5.07 RBC 4.36 L Hgb 14.4 Hct 42.3 MCV 97.0 MCH 33.0 MCHC 34.0 RDW Std Deviation 50.2 H RDW Coeff of Brittney 13.9 Plt Count 180 MPV 9.0 L Immature Gran % (Auto) Neut % (Auto) Lymph % (Auto) Monroe % (Auto) Eos % (Auto) Baso % (Auto) Neut # (Auto) Lymph # (Auto) Monroe # (Auto) Eos # (Auto) Baso # (Auto) Immature Gran # (Auto) PT INR APTT 95.2 H* PTT Ratio 3.5 Sodium 139 Potassium 4.2 Chloride 107 Carbon Dioxide 27 Anion Gap 5 BUN 18 Creatinine 0.80 Est Cr Clr Drug Dosing 111.4 Est GFR ( Amer) 102.7 Est GFR (Non-Af Amer) 88.6 BUN/Creatinine Ratio 22.5 H Glucose 112 H Calcium 9.1 Total Bilirubin AST ALT Alkaline Phosphatase Troponin I High Sens Total Protein Albumin Globulin Albumin/Globulin Ratio Triglycerides Cholesterol LDL Cholesterol, Calc VLDL Cholesterol, Calc HDL Cholesterol Cholesterol/HDL Ratio Lipase SARS-CoV-2, RNA, NAAT (1) CAD (coronary artery disease) Associated angina: with unspecified angina Coronary Disease-Associated Artery/Lesion type: unspecified vessel or lesion type [place] vs. transplanted heart: unspecified whether [place] or transplanted heart Qualified Code(s): I25.119 - Atherosclerotic heart disease of [place] coronary artery with unspecified angina pectoris
--- NOTE | 2022-04-19 12:28 | Pre Anesthesia Assessment ---
Date of Service April 19, 2022 Pre Sedation Assessment Vital Signs Temp Pulse Pulse Resp BP BP BP 04/19/22 11:47 98.2 F 74 18 127/83 04/19/22 07:54 98.1 F 78 18 144/85 H 04/19/22 07:29 83 04/19/22 03:42 98.2 F 76 18 115/72 04/18/22 23:47 98.1 F 78 14 106/68 04/19/22 00:10 81 04/18/22 21:40 87 24 04/18/22 21:37 95 H 23 04/18/22 21:00 81 17 04/18/22 20:50 81 16 04/18/22 20:40 84 18 04/18/22 20:30 88 24 04/18/22 20:28 90 21 04/18/22 20:10 89 27 H 04/18/22 20:00 81 17 04/18/22 20:00 106/71 04/18/22 19:50 85 23 04/18/22 19:40 87 20 04/18/22 19:30 89 17 04/18/22 19:30 119/79 04/18/22 19:29 89 12 04/18/22 19:29 141/84 H 04/18/22 19:23 87 18 04/18/22 21:00 04/18/22 21:23 98.2 F 85 16 152/89 H 04/18/22 20:06 85 20 106/71 04/18/22 18:25 97.9 F 97 H 16 145/90 H Pulse Ox O2 Del Method 04/19/22 11:47 96 Room Air 04/19/22 07:54 95 Room Air 04/19/22 07:29 04/19/22 03:42 97 Room Air 04/18/22 23:47 96 Room Air 04/19/22 00:10 04/18/22 21:40 04/18/22 21:37 04/18/22 21:00 04/18/22 20:50 04/18/22 20:40 04/18/22 20:30 04/18/22 20:28 04/18/22 20:10 93 04/18/22 20:00 04/18/22 20:00 04/18/22 19:50 94 04/18/22 19:40 95 04/18/22 19:30 94 04/18/22 19:30 04/18/22 19:29 95 04/18/22 19:29 04/18/22 19:23 04/18/22 21:00 Room Air 04/18/22 21:23 95 Room Air 04/18/22 20:06 95 Room Air 04/18/22 18:25 95 Room Air Cardiovascular RRR, no murmur, no edema Respiratory normal respiratory effort, lungs clear to auscultation Pre-Sedation Airway Assessment Smoking Status: Never smoker Hx Sleep Apnea: No Hx Difficult Intubation: No Short, Thick Neck: No Thyromental Distance: > or= 3.5 Finger Breadths Oral Cavity: + WNL Mallampati Class: IV ASA: ASA3 NPO Status Date of Last Intake of Fluids: 04/19/22 Time of Last Intake of Fluids: 08:00 Last Oral Intake of Fluids Comment: sip with meds Date of Last Intake of Solid Food: 04/18/22 Procedure Planning Contraindications for Sedation: none Current Medications Reviewed: Yes Notes The planned sedation has been discussed with the patient. Informed Consent was obtained. I have identified the patient, determined the appropriateness of sedation and have assessed the patient immediately prior to the procedure. All medicine(s) and interventions are by my order.
[2022-04-19] MEDS ORDERED: fentaNYL citrate 100 MCG/2 ML VIAL ONE ×2 (12:36→13:58)
[2022-04-19] MEDS ORDERED: HEPARIN (PORCINE) 1000 UNIT/ML 10 ML (CATH LAB USE ONLY) ONE ×2 (12:36→13:26)
[2022-04-19] MEDS ORDERED: niCARdipine HCL INJ 2.5 MG/ML 10 ML AMP ONE (12:36)
[2022-04-19] MEDS ORDERED: MIDAZOLAM HCL 1 MG/ML 2ML VIAL ONE ×2 (12:37→13:58)
[2022-04-19] MEDS ORDERED: NITROGLYCERIN/D5W 100MCG/ML 20ML SYR ONE (12:38)
[2022-04-19] MEDS ORDERED: TICAGRELOR 90 MG TAB ONE (14:08)
--- NOTE | 2022-04-19 14:18 | Hospitalist Progress Note ---
Date of Service April 19, 2022 Assessment & Plan (1) Non-ST elevation VA (NSTEMI): (2) Statin intolerance: (3) ASCVD (arteriosclerotic cardiovascular disease): (4) Hyperlipidemia: (5) History of coronary artery bypass graft: Plan 71 year old male with h/o CAD s/p stenting x2 03/14 with residual disease ostial circumflex presented to the ED 04/18 with exertional chest pain concerning for unstable angina Cardiac cath 03/14 findings 1. Acute 95% mid RCA stenosis 2. Chronic severe multivessel coronary artery disease 60% distal left main/ostial circumflex -Chronic 100% ostial LAD occlusion Chronic 100% ostial OM1 occlusion, 80-90% proximal small OM2 severe diffuse disease in small right PDA 3. Stable 80% proximal SVG to first diagonal. Patent ROY to LAD. Occluded SVG to OM 4. Normal intracardiac filling pressure 5. Successful PCI of mid RCA with 2 overlapping drug-eluting stents (3.0 x 30, 3.0 x 8 mm Hamzah drug-eluting stent; postdilated with 3.5 NC). NSTEMI- trop mildly elevated to 42. Discussed with cardio- plan for cardiac cath later today, npo for the same. continue heparin drip. CAD s/p CABG s/p stenting x2 03/14- continue DAPT, statin Hyperlipidemia/statin intolerance- on zetia, repatha DVT ppx- heparin drip Dispo- pending cardiac cath today Admission and Anticipated Discharge Date Admission Date: April 18, 2022 Subjective He feels fine. No more chest pain. He walked around and did not have recurrence of chest pain here. No shortness of breath, nausea, vomiting. He is npo for the cardiac cath later today. Physical Exam Physical Exam: General: Lying comfortably in bed, not in distress, on room air HEENT: EOMI, ELIZABETH, MMM Chest: Clear breath sounds bilaterally, no wheezes or crackles CVS: Regular rate and rhythm, normal heart sounds, no murmur Abdomen: Soft, non tender, not distended, normal bowel sounds Neuro: Awake, alert, oriented, conversing well, non focal Extremities: No cyanosis, clubbing or edema Results & Data Results & Data ([facility]) Vital Signs (Past 12 Hours) Vital Signs Temp Pulse Pulse Resp BP Pulse Ox O2 Del Method 04/19/22 11:47 36.8 C 74 18 127/83 96 Room Air 04/19/22 07:54 36.7 C 78 18 144/85 H 95 Room Air 04/19/22 07:29 83 04/19/22 03:42 36.8 C 76 18 115/72 97 Room Air Laboratory Results Short CBC 04/18/22 04/19/22 Range/Units 18:43 06:10 WBC 5.39 5.07 (4.8-10.8) K/ul Hgb 14.5 14.4 (14.0-18.0) g/dl Hct 43.4 42.3 (40.1-51.0) % Plt Count 202 180 (130-400) K/uL BMP 04/18/22 04/19/22 18:43 06:10 Sodium 140 139 Potassium 4.1 4.2 Chloride 108 H 107 Carbon Dioxide 24 27 BUN 23 18 Creatinine 0.91 0.80 Glucose 111 H 112 H Calcium 9.3 9.1 Liver Function 04/18/22 Range/Units 18:43 Total Bilirubin 0.4 (0.2-1.0) mg/dl AST 17 (13-39) U/L ALT 20 (7-52) U/L Alkaline Phosphatase 72 (34-104) U/L Albumin 4.1 (3.4-5.0) gm/dl Medications Administered Current Inpatient Medications Acetaminophen (Acetaminophen 325 Mg Tab) 650 mg PO Q4H PRN PRN Reason: Pain or Fever Stop: 05/18/22 21:17 Aspirin (Aspirin 81 Mg Ectab) 81 mg PO [facility] Stop: 05/19/22 08:59 Last Admin: 04/19/22 08:28 Dose: 81 mg Clopidogrel Bisulfate (Clopidogrel Bisulfate 75 Mg Tab) 75 mg PO [facility] Stop: 05/19/22 08:59 Last Admin: 04/19/22 08:28 Dose: 75 mg Ezetimibe (Ezetimibe 10 Mg Tablet) 10 mg PO [facility] Stop: 05/19/22 08:59 Last Admin: 04/19/22 08:28 Dose: 10 mg Heparin Sodium/Dextrose (Heparin Sodium/Dextrose) 25,000 units in 500 mls @ 31 mls/hr IV .Q16H8M [facility]; Protocol Stop: 05/18/22 22:14 Last Titration: 04/19/22 08:10 Dose: 1,550 units/hr, 31 mls/hr Sodium Chloride (Nss 1000ml) 1,000 mls @ 1 mls/hr IV .Q24H MATTHEW Stop: 05/19/22 10:44 Lisinopril (Lisinopril 5 Mg Tab) 5 mg PO HS MATTHEW Stop: 05/18/22 21:59 Last Admin: 04/18/22 23:29 Dose: 5 mg Metoprolol Succinate (Metoprolol Succ 25mg Ext Rel Tab) 25 mg PO QPM MATTHEW Stop: 05/18/22 21:59 Last Admin: 04/18/22 23:29 Dose: 25 mg Metoprolol Succinate (Metoprolol Succ 50mg Ext Rel Tab) 50 mg PO QAM MATTHEW Stop: 05/19/22 08:59 Last Admin: 04/19/22 08:28 Dose: 50 mg Morphine Sulfate (Morphine Sulfate 2 Mg/Ml Carp) 2 mg IV Q30M PRN PRN Reason: Chest Pain Stop: 05/02/22 21:17 Multivitamins (Multivitamin Tab) 1 tab PO DAILY MATTHEW Stop: 05/19/22 08:59 Last Admin: 04/19/22 08:28 Dose: 1 tab Nitroglycerin (Nitroglycerin Sl 0.4 Mg/Tab Tab) 0.4 mg SL UD PRN PRN Reason: Chest Pain Stop: 05/18/22 21:17 Polyethylene Glycol (Polyethylene (Miralax) 17 Gm Pack) 17 gm PO DAILY PRN PRN Reason: Constipation Stop: 05/18/22 21:17
--- NOTE | 2022-04-19 15:28 | Post Anesthesia Assessment ---
Date of Service April 19, 2022 Post Sedation Assessment Vital Signs Temp Pulse Pulse Resp BP BP BP 04/19/22 15:20 98.2 F 75 20 125/80 04/19/22 15:05 98.1 F 76 18 144/83 H 04/19/22 14:50 98.1 F 74 18 145/90 H 04/19/22 14:30 74 18 128/79 04/19/22 14:15 78 18 140/83 04/19/22 11:47 98.2 F 74 18 127/83 04/19/22 07:54 98.1 F 78 18 144/85 H 04/19/22 07:29 83 04/19/22 03:42 98.2 F 76 18 115/72 04/18/22 23:47 98.1 F 78 14 106/68 04/19/22 00:10 81 04/18/22 21:40 87 24 04/18/22 21:37 95 H 23 04/18/22 21:00 81 17 04/18/22 20:50 81 16 04/18/22 20:40 84 18 04/18/22 20:30 88 24 04/18/22 20:28 90 21 04/18/22 20:10 89 27 H 04/18/22 20:00 81 17 04/18/22 20:00 106/71 04/18/22 19:50 85 23 04/18/22 19:40 87 20 04/18/22 19:30 89 17 04/18/22 19:30 119/79 04/18/22 19:29 89 12 04/18/22 19:29 141/84 H 04/18/22 19:23 87 18 04/18/22 21:00 04/18/22 21:23 98.2 F 85 16 152/89 H 04/18/22 20:06 85 20 106/71 04/18/22 18:25 97.9 F 97 H 16 145/90 H Pulse Ox O2 Del Method 04/19/22 15:20 97 Room Air 04/19/22 15:05 96 Room Air 04/19/22 14:50 96 Room Air 04/19/22 14:30 98 Room Air 04/19/22 14:15 96 Room Air 04/19/22 11:47 96 Room Air 04/19/22 07:54 95 Room Air 04/19/22 07:29 04/19/22 03:42 97 Room Air 04/18/22 23:47 96 Room Air 04/19/22 00:10 04/18/22 21:40 04/18/22 21:37 04/18/22 21:00 04/18/22 20:50 04/18/22 20:40 04/18/22 20:30 04/18/22 20:28 04/18/22 20:10 93 04/18/22 20:00 04/18/22 20:00 04/18/22 19:50 94 04/18/22 19:40 95 04/18/22 19:30 94 04/18/22 19:30 04/18/22 19:29 95 04/18/22 19:29 04/18/22 19:23 04/18/22 21:00 Room Air 04/18/22 21:23 95 Room Air 04/18/22 20:06 95 Room Air 04/18/22 18:25 95 Room Air Recovery Score Activity: Moves 4 extremities Respiration: Deep Breath/Cough Circulation: +/-20% PreAnes Value Consciousness: Fully Awake Oxygen Saturation: > 92% On Room Air Post Anesthesia Score: 10 Discharge Sedation Level of Care: Fast Track Phase II Post Sedation Plan On clinical assessment, the patient appears to have tolerated the sedation without complications. Patient is recovering as anticipated. Patient will continue to be monitored by nursing and may be discharged when sedation discharge criteria are met per below protocol. Upon Completions of procedure up to 15 minutes continue every 5 minute vital signs and the P.A.R. score; then discharge to a Phase I or Fast Track to Phase II per the following guidelines: * Discharge Patient to appropriate Phase II area if PAR is 8 or greater or return to pre- procedure baseline. The post - procedure orders will be as directed. * If PAR score is less than 8 or not return to pre-procedure baseline then patient will follow Phase I monitoring till PAR is reached for Phase II. The Phase I may be done in procedure room or may call to secure a Phase I area. * If naloxone or flumazenil are used for reversal, hold in Phase I for continued monitoring from when last reversal dose was given for a minimum of 60 minutes or longer pending the nurse and/or physician discretion of patient condition before discharge to Phase II. Please call the Sedation Physician to re-evaluate and complete post-note for discharge to Phase II area. Do NOT discharge from procedure sedation or Phase 1 until post- sedation evaluation note is complete by procedure /sedation MD Sedation Discharge Instructions to be given to the patient at discharge to home.
--- NOTE | 2022-04-19 15:42 | Cardiac Catheterization ---
[facility] Data: Career Development Coordinator/Teacher Cardiac Status Clinical evaluation leading to the procedure CAD Presenation: Non STEMI Anginal Classification: CCS IV Diagnostic Physicians Name: Ernesto Banks MD Closure Device Recommendations: PCI without planned CABG Cardiac Cath Procedure Full Procedure Date April 19, 2022 Pre-Procedure Diagnosis Pre-Procedure Diagnosis: Acute Coronary Syndrome and CAD AUC Score AUC Score: 8 Post-Procedure Diagnosis Post-Procedure Diagnosis: Severe CAD, Successful PCI and Elevated Intracardiac Pressures Procedure(s) Performed Procedure(s) Performed: Coronary Angiography, Left Heart Cath, Drug Eluting Stent, IVUS and Bypass Graft Angiography [employer] Counter Person Ernesto Banks MD Journeyman Painter(s) Jonah Fletcher Estimated Blood Loss Estimated Blood Loss: 15 Medication(s) Medication(s): Fentanyl, Heparin, Lidocaine 1%, Nicardipine, Nitroglycerin and Versed Medication(s): Ticagrelor Summary of Findings Indication: Recurrent exertional chest discomfort, elevated high sensitive trop onin. History of PCI to RCA with 2 PINA 02/2022. prior three-vessel CABG in 2007 Access: 6 Fr left radial artery Catheters: JL4, JR4. JR4 guide Findings: LM -eccentric calcified distal 50 to 60% stenosis extending into ostial circumflex LAD -calcified, 100% ostial occlusion Circumflex -medium caliber vessel, 30% mid segment disease, OM1 occluded, small OM 2 with 70% proximal stenosis RCA -dominant, medium caliber, moderately calcified, 50% mid stenosis, 95% late- mid stensis with acute thrombus involving distal aspect of prior stents. small RPDA with diffuse mid segment disease up to 90% SVG to first [id number]% proximal stenosis, small first diagonal without significant disease SVG to OMoccluded ROY to LADwidely patent, distal LAD without significant disease and wraps around apex, retrofills into mid LAD and second diagonal LVEDP -21 -- PCI -- Antithrombotic therapy: Heparin, ticagrelor Procedure: RCA cannulated with JR4 guide Pre-procedure flow BHARATH 2-3 Moderate 50 wire passed across mid RCA lesion into distal vessel With the aid of a GuideLiner mid RCA lesion predilated with 2.5 compliant balloon Ridgely IVUS catheter placed in the distal RCA pullback residual thrombus in mid RCA just distal to stent extending into distalmost aspect of prior stents. Stent well opposed, no stent fracture. In earlymid segment underexpanded due to circumferential calcium. Dilated latemid RCA stented with single PINA (3.0 x 23 mm Xience) overlapping distalmost aspect of prior stents Stent post-dilated with 4.0 noncompliant balloon. Earlymid RCA segment postdilated with 4.0 NC to high atmospheres Repeat IVUS showed well apposed, well-expanded stent with no Fr IC vasodilators administered for spasm Post procedure BHARATH 3 flow, stents well expanded with minimal residual stenosis and no apparent cardiac complications. Arterial Closure: Summary: 1. Subacute stent thrombosis involving latemid RCA stent with 95% stenosis 2. Chronic severe multivessel coronary artery disease 50-60% distal left main/ostial circumflex -Chronic 100% ostial LAD occlusion Chronic 100% ostial OM1 occlusion, 80-90% proximal small OM2 severe diffuse disease in small right PDA 3. Stable 80% proximal SVG to first diagonal. Patent ROY to LAD. Occluded SVG to OM 4. Elevated intracardiac filling pressure (LVEDP 21) 5. Successful PCI of mid to distal RCA with single drug-eluting stent overlapping distal aspect of prior stents (3.0 x 23 mm Xience postdilated with 4.0 NC). Recommendations: To PCU for continued monitoring Change clopidogrel to ticagrelor, loaded with 180 mg in Career Development Coordinator/Teacher Continue DAPT for at least 1 year, likely extended in the setting of stent thrombosis/overlapping stents Continued ASCVD risk factor modification Cardiac rehab Distal left main/ostial circumflex appears moderate/unchanged from 02/2022. Continue medical management. If refractory exertional anginal symptoms in the future could consider PCI. Hemodynamics Rest Ao:: 130/75/99 Final Ao: 149/85/114 LV: 141/21 Recommendations Recommendations: PCI without planned CABG Specimens Specimens: None Radiation Exposure (mGy) 3327 Contrast (mls) 190 Anesthesia moderate 2080-3374 Procedural Complication(s) None Disposition PCU I attest to the content of the Intraoperative Record and any orders documented therein. Any exceptions are noted below. MNP Card Cath Procedure Codes Cardiac Catheterization Procedure 1: Cardiovascular Cath Procedures: 39943 Coronaries & LHC (+/-LV) & Grafts/IM (arterial & venous) Therapeutic Services & Ancillary Proc Procedure 1: Cardiovascular Tx and Anc Procedures: 98259 IV Ultrasound (Coronary or Graft) Moderate Sedation Procedure 1: Sedation/Anesthesia: 97658 Mod Sedation by the same physician;Init15 Min Child Age 5 & Up Procedure 2: Sedation/Anesthesia: 51371 Mod Sedation by the same physician; Ea [id number] Minutes Stenting Procedure 1: Cardiovascular Stent Procedures: 84627 Perc transcatheter placement of intracoronary stent(s), with ang PG Care Time/CCT Total # of Minutes Spent Total Time Spent with Patient: Total time spent is greater than 50% in coordination of care (as documented) at patient's floor/unit and/or counseling patient:
[2022-04-19 16:47] LABS: Partial Thromboplastin Ratio 4.3
[2022-04-19 16:55] LABS: Partial Thromboplastin Time 117.3 Seconds (21.0-31.0)
[2022-04-19] MEDS: lisinopril 5 MG TAB PO SCH (20:11)
[2022-04-19] MEDS: METOPROLOL SUCC 25MG EXT REL TAB PO SCH (20:12)
--- NOTE | 2022-04-19 21:44 | Electrocardiogram Report ---
Test Reason : Blood Pressure : / mmHG Vent. Rate : 091 BPM Atrial Rate : 091 BPM P-R Int : 198 ms QRS Dur : 104 ms QT Int : 348 ms P-R-T Axes : 042 -04 065 degrees QTc Int : 428 ms Sinus rhythm with occasional Premature ventricular complexes Inferior infarct (cited on or before 15-MAR-2022) Abnormal ECG When compared with ECG of 15-MAR-2022 06:00, Premature ventricular complexes are now Present Nonspecific T wave abnormality has replaced inverted T waves in Inferior leads Nonspecific T wave abnormality, improved in Lateral leads Confirmed by Rey Mcfarlane ([id number]) on 04/19/2022 9:44:29 PM Referred By: REFERRED SELF Confirmed By:Rey Mcfarlane
--- NOTE | 2022-04-19 21:54 | Electrocardiogram Report ---
Test Reason : Blood Pressure : / mmHG Vent. Rate : 087 BPM Atrial Rate : 087 BPM P-R Int : 204 ms QRS Dur : 104 ms QT Int : 366 ms P-R-T Axes : 048 010 047 degrees QTc Int : 440 ms Sinus rhythm with Premature atrial complexes Possible Inferior infarct (cited on or before 15-MAR-2022) Abnormal ECG When compared with ECG of 18-APR-2022 18:33, Premature ventricular complexes are no longer Present Premature atrial complexes are now Present Confirmed by Rey Mcfarlane ([id number]) on 04/19/2022 9:54:11 PM Referred By: REFERRED SELF Confirmed By:Rey Mcfarlane
--- NOTE | 2022-04-19 22:53 | Electrocardiogram Report ---
Test Reason : Blood Pressure : / mmHG Vent. Rate : 079 BPM Atrial Rate : 079 BPM P-R Int : 200 ms QRS Dur : 098 ms QT Int : 390 ms P-R-T Axes : 048 007 073 degrees QTc Int : 447 ms Normal sinus rhythm Nonspecific T wave abnormality Cannot rule out Inferior infarct Abnormal ECG When compared with ECG of 18-APR-2022 20:32, Premature atrial complexes are no longer Present Confirmed by Rey Mcfarlane ([id number]) on 04/19/2022 10:52:45 PM Referred By: REFERRED SELF Confirmed By:Rey Mcfarlane
--- NOTE | 2022-04-20 06:01 | Electrocardiogram Report ---
Test Reason : Blood Pressure : / mmHG Vent. Rate : 076 BPM Atrial Rate : 076 BPM P-R Int : 196 ms QRS Dur : 104 ms QT Int : 400 ms P-R-T Axes : 035 -14 066 degrees QTc Int : 450 ms Sinus rhythm with Premature atrial complexes Inferior infarct , age undetermined Nonspecific T wave abnormality Abnormal ECG When compared with ECG of 19-APR-2022 06:07, Premature atrial complexes are now Present Confirmed by Rey Mcfarlane ([id number]) on 04/20/2022 6:01:39 AM Referred By: REFERRED SELF Confirmed By:Rey Mcfarlane
[2022-04-20] MEDS: EZETIMIBE 10 MG TABLET PO SCH (08:22)
[2022-04-20] MEDS: METOPROLOL SUCC 50MG EXT REL TAB PO SCH (08:22)
[2022-04-20] MEDS: MULTIVITAMIN TAB PO SCH (08:22)
[2022-04-20] MEDS: ASPIRIN 81 MG ECTAB PO SCH (08:22)
[2022-04-20] MEDS ORDERED: TICAGRELOR 90 MG TAB PO SCH (09:00)
--- NOTE | 2022-04-20 11:28 | Electrocardiogram Report ---
Test Reason : Blood Pressure : / mmHG Vent. Rate : 077 BPM Atrial Rate : 077 BPM P-R Int : 202 ms QRS Dur : 096 ms QT Int : 394 ms P-R-T Axes : 002 -19 -63 degrees QTc Int : 445 ms Normal sinus rhythm Inferior infarct (cited on or before 15-MAR-2022) Nonspecific T wave abnormality Abnormal ECG When compared with ECG of 19-APR-2022 15:09, Premature atrial complexes are no longer Present Confirmed by Mathieu Salazar ([id number]) on 04/20/2022 11:27:31 AM Referred By: REFERRED SELF Confirmed By:Mathieu Salazar
--- NOTE | 2022-04-20 12:37 | Discharge Summary ---
Date of Service April 20, 2022 Admission HPI Per Admitting Provider 71-year-old man with history of coronary artery disease status post CABG in 2007 was recently admitted for an NSTEMI. He underwent cardiac catheterization and coronary intervention of culprit lesion within the right coronary artery on 03/14. He was discharged home in stable condition with Dr. Banks. Since that time he has been doing well without anginal symptoms. However, this morning he developed a dull achy chest pain while he was lifting a gas tank in his yard with a piece of equipment. He had no trauma or injury. He felt belching and continues to feel an indigestion that he describes as a dullness. It is centrally located and is consistent with his index angina. He then reported that that same discomfort was present 3 days ago. He denies any shortness of breath. He took 2 nitroglycerin at home and the pain resolved. Although he remains pain-free he still feels some belching present. His troponin is elevated at 20.6 with repeat 2 hours later 42.3. His EKG is unchanged from prior. Admission Exam Per Admitting Provider CONSTITUTIONAL: WNWD, vitals as above, generally well-appearing, NAD EYES: normal conjunctivae, no scleral icterus ENT: external ear and nose normal, MMM NECK: trachea midline RESPIRATORY: clear to auscultation bilaterally, no crackles, rales or wheezes, normal respiratory effort CARDIOVASCULAR: regular rate and rhythm, S1 and 2 heard without murmurs, gallops or rubs, no JVD, no peripheral edema CHEST: inspection of chest was normal GASTROINTESTINAL: soft, nontender, ND, no guarding MUSCULOSKELETAL: strength 5/5 throughout, head is normocephalic and atraumatic SKIN: warm and dry NEUROLOGIC: CN 2-12 grossly intact, no sensory deficit, normal cognition, normal speech, no tremor PSYCHIATRIC: alert cooperative and oriented to person, place and time. Euthymic mood, makes good eye contact, language grossly intact, recent and remote memory grossly intact. Principal Diagnosis Severe CAD, Subacute instent thrombosis with angina Discharge Exam General: Lying comfortably in bed, not in distress, on room air HEENT: EOMI, ELIZABETH, MMM Chest: Clear breath sounds bilaterally, no wheezes or crackles CVS: Regular rate and rhythm, normal heart sounds, no murmur Abdomen: Soft, non tender, not distended, normal bowel sounds Neuro: Awake, alert, oriented, conversing well, non focal Extremities: No cyanosis, clubbing or edema Discharge Data Allergies Allergy/AdvReac Type Severity Reaction Status Date / Time codeine Allergy Severe Tongue Verified 03/29/22 14:24 swells, has taken Vicodin w/o reaction Consultations 04/18/22 20:38 ED Decision to Admit Stat 04/18/22 21:18 Consult Cardiology Routine 04/19/22 15:44 Consult Cardiac Rehabilitation Routine Procedures Performed Operation Date: 04/19/22 12:00 Actual Procedures s Cineradiography w/Routine Exam - Teofilo Banks MD p Cath, Left w/Cors Vent Grafts - Teofilo Banks MD s Drug Eluting Stent SGl Vessel - Teofilo Banks MD s IVUS Coronary Single Vessel - Teofilo Banks MD Ordered Studies 04/19/22 10:45 CL Cath Imgs for PACS use only Routine 04/19/22 14:33 CL IVUS Coronary Single Vessel Routine Laboratory Results WBC 5.07 K/ul (4.8-10.8) 04/19/22 06:10 RBC 4.36 M/uL (4.63-6.08) L 04/19/22 06:10 Hgb 14.4 g/dl (14.0-18.0) 04/19/22 06:10 Hct 42.3 % (40.1-51.0) 04/19/22 06:10 MCV 97.0 fL (80.0-100.0) 04/19/22 06:10 MCH 33.0 pg (25.0-34.0) 04/19/22 06:10 MCHC 34.0 g/dL (32.0-36.0) 04/19/22 06:10 RDW Std Deviation 50.2 fL (36.4-46.3) H 04/19/22 06:10 RDW Coeff of Brittney 13.9 % (11.5-14.5) 04/19/22 06:10 Plt Count 180 K/uL (130-400) 04/19/22 06:10 MPV 9.0 fL (9.4-12.4) L 04/19/22 06:10 Immature Gran % (Auto) 0.2 % 04/18/22 18:43 Neut % (Auto) 55.4 % 04/18/22 18:43 Lymph % (Auto) 33.2 % 04/18/22 18:43 Benson % (Auto) 7.8 % 04/18/22 18:43 Eos % (Auto) 3.0 % 04/18/22 18:43 Baso % (Auto) 0.4 % 04/18/22 18:43 Neut # (Auto) 2.99 K/uL (1.4-6.5) 04/18/22 18:43 Lymph # (Auto) 1.79 K/uL (1.2-3.4) 04/18/22 18:43 Benson # (Auto) 0.42 K/uL (0.24-0.82) 04/18/22 18:43 Eos # (Auto) 0.16 K/uL (0-0.50) 04/18/22 18:43 Baso # (Auto) 0.02 K/uL (0-0.2) 04/18/22 18:43 Immature Gran # (Auto) 0.01 K/uL (0.00-0.02) 04/18/22 18:43 PT 10.3 Seconds (9.0-12.0) 04/18/22 18:43 INR 1.0 (0.9-1.1) 04/18/22 18:43 APTT 117.3 Seconds (21.0-31.0) H* 04/19/22 15:58 PTT Ratio 4.3 04/19/22 15:58 Sodium 139 mmol/L (136-145) 04/19/22 06:10 Potassium 4.2 mmol/L (3.5-5.1) 04/19/22 06:10 Chloride 107 mmol/L (98-107) 04/19/22 06:10 Carbon Dioxide 27 mmol/L (21-32) 04/19/22 06:10 Anion Gap 5 (3-11) 04/19/22 06:10 BUN 18 mg/dl (6-23) 04/19/22 06:10 Creatinine 0.80 mg/dl (0.6-1.4) 04/19/22 06:10 Est Cr Clr Drug Dosing 111.4 ml/min 04/19/22 06:10 Est GFR ( Amer) 102.7 ml/min 04/19/22 06:10 Est GFR (Non-Af Amer) 88.6 ml/min 04/19/22 06:10 BUN/Creatinine Ratio 22.5 (10-20) H 04/19/22 06:10 Glucose 112 mg/dl (70-99(Fasting)) H 04/19/22 06:10 Calcium 9.1 mg/dl (8.5-10.1) 04/19/22 06:10 Total Bilirubin 0.4 mg/dl (0.2-1.0) 04/18/22 18:43 AST 17 U/L (13-39) 04/18/22 18:43 ALT 20 U/L (7-52) 04/18/22 18:43 Alkaline Phosphatase 72 U/L (34-104) 04/18/22 18:43 Troponin I High Sens 42.3 pg/ml (0-20) H D 04/18/22 20:30 Total Protein 7.2 gm/dl (6.0-8.3) 04/18/22 18:43 Albumin 4.1 gm/dl (3.4-5.0) 04/18/22 18:43 Globulin 3.1 gm/dl (2.5-4.0) 04/18/22 18:43 Albumin/Globulin Ratio 1.3 (0.9-2) 04/18/22 18:43 Triglycerides 416 mg/dl (0-150) H 04/18/22 20:30 Cholesterol 119 mg/dl (0-200) 04/18/22 20:30 LDL Cholesterol, Calc TNP 04/18/22 20:30 VLDL Cholesterol, Calc TNP 04/18/22 20:30 HDL Cholesterol 38 mg/dl 04/18/22 20:30 Cholesterol/HDL Ratio 3.1 (0-5) 04/18/22 20:30 Lipase 32 U/L (11-82) 04/18/22 18:43 SARS-CoV-2, RNA, NAAT NEGATIVE (NEGATIVE) 04/18/22 19:30 Impressions Chest X-Ray 04/18/22 19:19 SINGLE VIEW CHEST CLINICAL HISTORY: Atypical chest pain. FINDINGS: An AP, portable, upright chest radiograph is compared to chest x-ray and chest CT dated 03/13/2022. The examination is degraded by portable technique and apical lordotic positioning. The patient is status post midline sternotomy. The heart is enlarged noting atherosclerotic calcification of the thoracic aorta. The pulmonary vasculature is noncongested. Chronic interstitial thickening is similar to previous. There is bibasilar scarring/atelectasis. The lungs and pleural spaces are clear. No pneumothorax is seen. The skeletal structures are osteopenic. The bony thorax is grossly intact. IMPRESSION: Cardiomegaly with no active disease in the chest. ACT 112: Negative or not required by law. Electronically signed by: Ernst Warren M.D. 04/18/2022 8:19 PM Hospital Course (1) Non-ST elevation RI (NSTEMI): (2) Statin intolerance: (3) ASCVD (arteriosclerotic cardiovascular disease): (4) Hyperlipidemia: (5) History of coronary artery bypass graft: Plan 71 year old male with h/o CAD s/p CABG 2007 and stenting x2 03/14 with residual disease ostial circumflex presented to the ED 04/18 with exertional chest pain concerning for unstable angina. His high sensitivity troponin was mildly elevated at 40. He was started on heparin drip and DAPT continued. Seen by cardio and underwent cardiac cath yesterday which showed subacute stent thrombosis involving late-mid RCA stent with 95% stenosis and underwent successful PCI of mid to distal RCA with single PINA. Plavix was discontinued and started on brilinta post procedure. He had an uneventful overnight stay. Denies any chest pain since hospital admission. Ambulating independently in the room. Denies any issues. He is comfortable and stable for discharge home. He will be continued on ASA/Brilinta for at least 1 year and likely extended in setting of stent thrombosis/overlapping stents. Recommend cardiac rehab and OP cardio follow up. Cardiac cath 04/19 1. Subacute stent thrombosis involving latemid RCA stent with 95% stenosis 2. Chronic severe multivessel coronary artery disease 50-60% distal left main/ostial circumflex -Chronic 100% ostial LAD occlusion Chronic 100% ostial OM1 occlusion, 80-90% proximal small OM2 severe diffuse disease in small right PDA 3. Stable 80% proximal SVG to first diagonal. Patent ROY to LAD. Occluded SVG to OM 4. Elevated intracardiac filling pressure (LVEDP ) 5. Successful PCI of mid to distal RCA with single drug-eluting stent overlapping distal aspect of prior stents (3.0 x 23 mm Xience postdilated with 4.0 NC). Distal left main/ostial circumflex appears moderate/unchanged from 02/2022. Continue medical management. If refractory exertional anginal symptoms in the future could consider PCI. CAD s/p CABG s/p stentingx2 03/14 and stentingx1 for subacute instent thrombosis of RCA 04/19- Plan as above Hyperlipidemia/statin intolerance- on zetia, repatha Total Time Total Time Spent Total Time Spent (In Minutes): 35 Discharge Plan Discharge Items Patient Disposition: Home - Self-Care Reason For Visit: CHEST PAIN Discharge Diagnosis: Severe CAD with angina due to subacute instent thrombosis Activity: Resume your previous activity Non-emergency contact: Primary Care Provider and Electrical Inspector Call non-emergency contact if: you have any medication questions, your symptoms worsen and your pain is concerning for you Follow-up/Referrals: Khanh Noel MD [Primary Care Provider] - Diet: Heart Healthy Addtl Attending Provider Instructions: Stop plavix Continue aspirin and brilinta at least for 1 year and even longer Follow up with cardiology Addtl Senior Reservations Agent Provider Instructions: ACTIVITY RECOMMENDATIONS: Excess manipulation of the wrist should be avoided for the next 24-48 hours. * No lifting over 2 pounds (approximately a 1/2 gallon of milk) with the utilized arm for 24 hours. * No strenuous activity such as bowling or tennis for 3 days. * Keep the site of the procedure covered with a bandage for 24 hours. *You may shower the day after the procedure. Do not take a tub bath or submerge the puncture site in water for the next 3 days. *Do not operate any motorized equipment for 3 days. SPECIAL CARE INSTRUCTIONS: The site may be slightly bruised and sore following your procedure. Should any of the following occur, contact the Dr. who performed your procedure. 1. Redness/inflammation, swelling, chills, or fever, or colored drainage at procedure site within 3-7 days after your procedure. 2. Coldness, discoloration, ongoing numbness, severe pain, or swelling. Expect mild tingling of hand and tenderness at the puncture site for up to three days. If this persists beyond three days, or other symptoms develop, notify the Dr. who performed your procedure. BLEEDING: If the procedure site on your wrist begins to bleed, do not panic 1. Place 1 or 2 fingers firmly just slightly above the insertion site to stop the bleeding. You may be able to feel your pulse as you hold pressure. 2. Lift your finger after 5 minutes to see if the bleeding has stopped. 3. Once the bleeding has stopped, gently wipe the wrist area clean with a bandage. * If the bleeding from your wrist does not stop after 10 minutes, or if there is a large amount of bleeding or spurting, call 911 (do not drive yourself to the hospital). SKIN IRRITATION: * You may experience some redness and/or swelling in the area where radiation was administered. If any skin irritation occurs, please contact your family physician. FOLLOW UP VISIT: Keep any scheduled doctor appointments. Pending Studies at Discharge: No Stand-Alone Forms: My [facility], Smoking Cessation Medications and DC Order Prescriptions: New Brilinta 90 mg Tablet 90 mg PO BID Qty: 60 0RF Continued ezetimibe 10 mg tablet 10 mg PO QAM multivitamin Tablet 1 tab PO DAILY aspirin [Lynda Low Dose Aspirin] 81 mg Tablet,Delayed Release (Dr/Ec) 81 mg PO DAILY nitroglycerin 0.4 mg Tablet, Sublingual 0.4 mg sublingual Q5M PRN (Reason: Chest Pain) Qty: 30 0RF metoprolol succinate 50 mg tablet extended release 24 hr 25 mg PO QPM metoprolol succinate [Toprol XL] 50 mg tablet extended release 24 hr 50 mg PO QAM Repatha SureClick 140 mg/mL pen injector 140 mg SUBCUT .[id number] hydrochlorothiazide 25 mg tablet 12.5 mg PO UD Label Comments: take 1-2 days per week as needed for edema lisinopril 5 mg tablet 5 mg PO QAM Discontinued clopidogrel 75 mg Tablet 75 mg PO QAM 30 Days Qty: 30 3RF Discharge Orders: Discharge Order (Routine); Ordered 04/20/22 Ordered By: Tony Desai Admission Data Admit Date/Time: 04/18/22 20:39 Attending Provider: Tony Desai Admit Provider: Kayla Mortensen Primary Care Provider: Khanh Noel Other Providers: Kayla Mortensen ; Berhane Pompa Other Interventions: Discharge Summary Assessment (RN) Last Done: 04/20/22 12:28
--- NOTE | 2022-04-20 12:57 | Cardiology Progress Note ---
Date of Service April 20, 2022 Assessment & Plan (1) Unstable angina pectoris: (2) CAD (coronary artery disease): (3) Hyperlipidemia: (4) Statin intolerance: Plan Patient is a 71-year-old male with known coronary disease as well outlined in HPI. Recent coronary intervention in February 2022 with residual disease ostial circumflex noted. Patient presents with concerning symptoms consistent with prior angina (atypical) with mildly elevated troponin. Symptoms were relieved by sublingual nitroglycerin Results of cardiac catheterization as noted Plan Change clopidogrel to ticagrelor, loaded with 180 mg in Rubber Stamps And Dies Supervisor Continue DAPT for at least 1 year, likely extended in the setting of stent thrombosis/overlapping stents Continued ASCVD risk factor modification Cardiac rehab Follow-up cardiology 3 to 4 weeks Admission and Anticipated Discharge Date Admission Date: April 18, 2022 Subjective Seen and examined, chart, medications, telemetry reviewed. Feels substantially better today no further chest pain, shortness of breath, dizziness. Cardiac catheterization as noted in record thrombotic stenosis of prior right coronary artery stent with successful PCI. Change in antiplatelet therapy to Brilinta Physical Exam Constitutional: WD/WN, vitals as above Eyes: PERRL, conjunctivae normal, anicteric sclerae ENMT: external ear and nose normal, oropharynx normal Neck: trachea midline, no thyromegaly Respiratory: normal respiratory effort, lungs clear to auscultation Cardiovascular: Rate/Rhythm: regular rate and regular rhythm Heart Sounds: normal S1 and normal S2; no gallop and no murmur Palpation: normal PMI Vessels: normal carotid upstroke and radial pulses present; no JVD and no carotid bruit Extremities: no edema Gastrointestinal (Abdomen): normal bowel sounds, soft, nontender, no hepatosplenomegaly Musculoskeletal: no cyanosis or clubbing, extremities motor strength 5/5 Skin: no rashes, warm and dry Neurologic: PERRL, EOMI, accommodation nl, no face palsy, no dysarthria Psychiatric: A+Ox3, euthymic affect Results & Data ([facility]) Vital Signs (Past 12 Hours) Vital Signs Temp Pulse Pulse Resp BP BP Pulse Ox 04/20/22 12:28 37.3 C 81 18 106/71 124/84 96 04/20/22 12:08 37.3 C 81 18 124/84 96 04/20/22 08:03 37.1 C 78 18 150/94 H 95 04/20/22 04:00 37.0 C 86 18 135/81 96 04/20/22 01:29 86 O2 Del Method 04/20/22 12:28 04/20/22 12:08 04/20/22 08:03 Room Air 04/20/22 04:00 Room Air 04/20/22 01:29 (1) CAD (coronary artery disease) Associated angina: with unspecified angina Coronary Disease-Associated Artery/Lesion type: unspecified vessel or lesion type [place] vs. transplanted heart: unspecified whether [place] or transplanted heart Qualified Code(s): I25.119 - Atherosclerotic heart disease of [place] coronary artery with unspecified angina pectoris
== END 2022-04-20 13:25 | disposition home or self-care (01) | DRG 246 ==
LOC: ED 18:19 → 2S 20:39 → SUATTDRO 20:39 → 2S 21:00